=== PATIENT | female | born 1995 | race Caucasian/White ===

== ENCOUNTER 2022-05-25 19:48 | Inpatient (IN) | payer OTHER, SELFPAY ==
--- OUTSIDE RECORDS SUMMARY | 2022-05-25 19:53 | XMS_ITS | Continuity of Care Document ---
:1995 Author Organization [facility] Address [address] [place] [address]- Care Team Providers Name Role Phone Not on Staff, PCP Primary Care Physician Unavailable Encounter [facility] Date(s): 11/04/21 - 11/05/[address] [address]- Discharge Disposition: Transferred to short-term general hospit Attending Physician: Shannon Mills MD Admitting Physician: Shannon Mills MD Referring Physician: Not on Staff, Referring MD Allergies, Adverse Reactions, Alerts Substance Reaction Severity Status shellfish Active Thorazine Active Depakote Risperidone adverse reaction Act anival Risperidone Risperidone Risperidone Risperidone Risperidone Risperidone Tomatoes Active Lactose Active RisperDAL Active Medications Acetaminophen Tablet 650 mg, Tablet, By Mouth, Once, STAT, 11/05/21 1:48:00 EDT, Stop date 11/05/21 1:48:00 EDT Start Date: 11/05/21 Stop Date: 11/05/21 Status: CompletedAtivan 0.5 mg oral tablet 1 tablet = 0.5 mg, By Mouth, Daily, in AM, 0 Refills, Maintenance, 08/16/21 2:08:00 EST, Tablet, Partial fill upon patient request if the prescription is for a schedule II opioid drug. Start Date: 08/16/21 Status: OrderedAtivan 1 mg oral tablet 1 tablet = 1 mg, By Mouth, Daily at bedtime, 0 Refills, Maintenance, 11/05/21 20:11:00 EDT, Tablet, Partial fill upon patient request if the prescription is for a schedule II opioid drug. Start Date: 11/05/21 Status: Orderedbaclofen 5 mg oral tablet 1 tablet = 5 mg, By Mouth, 3 times a day, PRN Spasm, # 90 tablet, 0 Refills, Maintenance, 08/16/21 2:00:00 EST, Tablet, Partial fill upon patient request if the prescription is for a schedule II opioiddrug. Start Date: 08/16/21 Status: OrderedBenadryl 25 mg oral capsule See Instructions, PRN for insomnia, 2 capsule By Mouth as needed, 0 Refills, Maintenance, 08/16/21 2:04:00 EST, Capsule, Partial fill upon patient request if the prescription is for a schedule II opioid drug. Start Date: 08/16/21 Status: OrderedBenadryl 25 mg oral capsule 2 capsule = 50 mg, By Mouth, Daily in AM, 0 Refills, Maintenance, 11/05/21 20:11:00 EDT, Partial fill upon patient request if the prescription is for a schedule II opioid drug. Start Date: 11/05/21 Status: Orderedbenztropine 0.5 mg oral tablet 0.5 mg, 1, tablet, By Mouth, Daily, IN AM, Refills 0, Maintenance, 08/16/21 2:20:00 EST, Partial fill upon patient request if the prescription is for a schedule II opioid drug. Start Date: 08/16/21 Status: Orderedbenztropine 1 mg oral tablet 1 mg, 1, tablet, By Mouth, Daily, at bedtime, # 30 tablet, Refills 0, Maintenance, 08/16/21 2:18:00 EST, Partial fill upon patient request if the prescription is for a schedule II opioid drug. Start Date: 08/16/21 Status: OrderedColace sodium 100 mg oral capsule 100 mg, 1, capsule, By Mouth, 2 times a day, PRN, # 20 capsule, Refills 0, Maintenance, for constipation, 11/05/21 20:17:00 EDT, Partial fill upon patient request if the prescription is for a schedule II opioid drug. Start Date: 11/05/21 Status: Orderedferrous fumarate 325 mg oral tablet 1 tablet = 325 mg, By Mouth, Daily in AM, # 30 tablet, 0 Refills, Maintenance, 11/05/21 20:12:00 EDT, Tablet, Partial fill upon patient request if the prescription is for a schedule II opioid drug. Start Date: 11/05/21 Status: Orderedhaloperidol 10 mg oral tablet 10 mg, 1, tablet, By Mouth, 2 times a day, Pt. takes with the 5mg pill for 15 total, # 60 tablet, Refills 0, Maintenance, 08/16/21 2:24:00 EST, Partial fill upon patient request if the prescription is for a schedule II opioid drug. Start Date: 08/16/21 Status: Orderedhaloperidol 5 mg oral tablet 15 mg, 3, tablet, By Mouth, 2 times a day, # 60 tablet, Refills 0, Maintenance, 08/16/21 1:57:00 EST, Partial fill upon patient request if the prescription is for a schedule II opioid drug. Start Date: 08/16/21 Status: Orderedmagnesium oxide 500 mg oral tablet 1 tablet = 500 mg, By Mouth, Daily, # 14 tablet, 0 Refills, Maintenance, 11/05/21 20:16:00 EDT, Tablet, Partial fill upon patient request if the prescription is for a schedule II opioid drug. Start Date: 11/05/21 Stop Date: 12/05/21 Status: OrderedmetFORMIN 500 mg oral tablet 1 tablet = 500 mg, By Mouth, 2 times a day, # 60 tablet, 0 Refills, Maintenance, 11/05/21 20:16:00 EDT, Tablet, Partial fill upon patient request if the prescription is for a schedule II opioid drug. Start Date: 11/05/21 Status: OrderedMiraLax oral powder for reconstitution = 17 Gm, By Mouth, Daily, PRN Constipation, dissolve in water before taking, # 255 Gm, 0 Refills, Maintenance, 11/05/21 20:20:00 EDT, REC Powder, Partial fill upon patient request if the prescription is for a schedule II opioid drug. Start Date: 11/05/21 Status: OrderedMotrin IB 200 mg oral tablet 2 tablet = 400 mg, By Mouth, Every 6 hours, PRN for pain, # 120 tablet, 0 Refills, Maintenance, 08/16/21 2:06:00 EST, Tablet, Partial fill upon patient request if the prescription is for a schedule II opioid drug. Start Date: 08/16/21 Status: Orderedolanzapine 15 mg oral tablet 1 tablet = 15 mg, By Mouth, 2 times a day, # 30 tablet, 0 Refills, Maintenance, 08/16/21 1:58:00 EST, Tablet, Partial fill upon patient request if the prescription is for a schedule II opioid drug. Start Date: 08/16/21 Status: OrderedOmeprazole = 20 mg, By Mouth, 2 times a day, 0 Refills, Maintenance, 11/05/21 20:16:00 EDT, Partial fill upon patient request if the prescription is for a schedule II opioid drug. Start Date: 11/05/21 Status: Orderedpropranolol 20 mg oral tablet 20 mg, 1, tablet, By Mouth, 2 times a day, # 180 tablet, Refills 0, Maintenance, 11/05/21 20:15:00 EDT, Partial fill upon patient request if the prescription is for a schedule II opioid drug. Start Date: 11/05/21 Status: Orderedsenna 17.2 mg oral tablet 1 tablet = 17.2 mg, By Mouth, Daily, PRN for constipation, # 12 tablet, 0 Refills, Maintenance, 11/05/21 20:17:00 EDT, Tablet, Partial fill upon patient request if the prescription is for a schedule IIopioid drug. Start Date: 11/05/21 Status: OrderedSumatriptan = 100 mg, By Mouth, Daily, PRN Headache, 0 Refills, Maintenance, 11/05/21 20:19:00 EDT, Partial fillupon patient request if the prescription is for a schedule II opioid drug. Start Date: 11/05/21 Status: OrderedtraZODone 100 mg oral tablet 100 mg, 1, tablet, By Mouth, Daily at bedtime, PRN, Refills 0, Maintenance, Insomnia, 11/05/21 20:20:00 EDT, Partial fill upon patient request if the prescription is for a schedule II opioid drug. Start Date: 11/05/21 Status: OrderedTums Ultra 1000 mg oral tablet, chewable 1 tablet = 1,000 mg, Chew, Daily, PRN as needed for dyspepsia, # 12 tablet, 0 Refills, Maintenance, 11/05/21 20:21:00 EDT, Chew Tablet, Partial fill upon patient request if the prescription is for a schedule II opioid drug. Start Date: 11/05/21 Status: OrderedVitamin C 250 mg oral tablet 1 tablet = 250 mg, By Mouth, 2 times a day, # 30 tablet, 0 Refills, Maintenance, 11/05/21 20:17:00 EDT, Tablet, Partial fill upon patient request if the prescription is for a schedule II opioid drug. Start Date: 3/17/22 Status: OrderedZofran 4 mg oral tablet 1 tablet = 4 mg, By Mouth, Every 8 hours, PRN Vomiting, # 12 tablet, 0 Refills, Maintenance, 08/16/21 2:07:00 EST, Tablet, Partial fill upon patient request if the prescription is for a schedule II opioid drug. Start Date: 08/16/21 Status: Ordered Problem List Condition Effective Dates Status Health Status Informant Severe obesity(Confirmed) Active Results Radiology Reports Exam Date Time Procedure Performing Provider Status 11/04/21 11:37 PM Nose to Rectum Foreign Body 1 Lisa Roberson; Shakir (Verified) View Child Notes:(Nose to Rectum Foreign Body 1 View Child) Reason For Exam: Foreign Body RESULT: Nose to Rectum Foreign Body 1 View Child Nose to Rectum Foreign Body 1 View INDICATION: swallowed a screw COMPARISON: 08/16/2021, 2021 FINDINGS: Metallic screw measuring about 3.2 cm in length, projecting over the left upper abdomen. Clear lungs. Normal pulmonary vascularity. No pleural effusion or pneumothorax. Heart is normal in size. Normal upper mid central and hilar contour. No acute osseous abnormality. IMPRESSION: 3.2 cm metallic screw projecting over the left upper abdomen, which may be within the stomach, proximal jejunum, or distal transverse colon. Findings were relayed by Dr. Perez to Silas Willis DO via [employer] on 11/04/2021 11:45 PM . I have personally reviewed the images and I agree with this report. WSN: [id number] Ordering Physician: Silas Willis Dictated By: Zhao Perez DO Dictated Date/Time: 11/04/21 11:49 p Reviewed By: Epifanio Maher MD Signed By: Epifanio Maher MD Signed Date/Time: 11/04/21 11:54 pm Transcribed By: LAINA Transcribed Date/Time: 11/04/21 11:46 pm Vital Signs Most recent to oldest 1 2 3 [Reference Range]: Height 151 cm 151 cm (11/05/21 6:52 AM) (11/04/21 11:25 PM) Weight 104.5 kg 104.5 kg (11/05/21 6:52 AM) (11/04/21 11:25 PM) Oxygen Saturation [94-100 %] 97 % 96 % 99 % (11/05/21 9:26 AM) (11/05/21 6:52 AM) (11/04/21 11: 25 PM) Pulse Rate [55-90 bpm] 93 bpm 95 bpm 100 bpm *H* *H* *H* (11/05/21 9:26 AM) (11/05/21 6:52 AM) (11/04/21 11: 25 PM) Body Mass Index [18.5-24.99] 45.83 *>HHI* (11/05/21 6:52 AM) Blood Pressure [90-138/55-84 119/70 mm Hg 114/80 mm Hg 119 /83 mm Hg mm Hg] (11/05/21 9:26 AM) (11/05/21 6:52 AM) (11/04/21 11: 25 PM) Respiratory Rate [16-30 22 br/min 24 br/min 18 br/mi n br/min] (11/05/21 9:26 AM) (11/05/21 6:52 AM) (11/05/21 2:5 1 AM) Temperature [96.8-100.4 98.3 DegF 98.1 DegF DegF] (11/05/21 9:26 AM) (11/04/21 11:25 PM) Mode of Delivery (Oxygen) Room air Room air Room a ir (11/05/21 9:26 AM) (11/05/21 6:52 AM) (11/04/21 11: 25 PM) Blood pressure sites Arm, right Arm, right (11/05/21 9:26 AM) (11/05/21 6:52 AM) Temperature Route Oral Oral (11/05/21:26 AM) (11/04/21 11:25 PM) Dry Weight 104.5 kg 104.5 kg (11/05/21 6:52 AM) (11/04/21 11:25 PM) Weight Obtained Via Standing scale (11/04/21 11:25 PM) Dry Weight Obtained Via Standing scale (11/04/21 11:25 PM) Social History Social History Type Response Smoking Status Never (less than 100 in life time) entered on: 10/20/21 Sex
--- OUTSIDE RECORDS SUMMARY | 2022-05-25 19:53 | XMS_ITS | Continuity of Care Document ---
:1995 Author Organization [facility] Address [address] [place] [address]- Care Team Providers Name Role Phone Geeta Blanca MD Primary Care Physician Encounter [facility] Date(s): 03/02/22 - 03/03/[address] [address]- Discharge Disposition: Transferred to short-term general hospit Attending Physician: Yajaira Moyer MD Admitting Physician: José Gardner DO Referring Physician: George Roman MD Allergies, Adverse Reactions, Alerts Substance Reaction Severity Status shellfish Active Thorazine Active Depakote Risperidone adverse reaction Act anival Risperidone Risperidone Risperidone Risperidone Risperidone Risperidone Latex Active Tomatoes Active Lactose Active RisperDAL Active Immunizations Given and Recorded Vaccine Date Status Refusal Reason SARS-CoV-2 (COVID-19) mRNA-1273 vaccine 01/15/21 Recorded SARS-CoV-2 (COVID-19) mRNA-1273 vaccine 12/18/20 Recorded influenza virus vaccine, inactivated 09/08/20 Recorded Medications Ativan 1 mg oral tablet 1 tablet = 1 mg, By Mouth, 2 times a day, 0 Refills, Maintenance, 11/05/21 20:11:00 EDT, Tablet, Partial fill upon patient request if the prescription is for a schedule II opioid drug. Start Date: 11/05/21 Status: Orderedbenztropine 1 mg oral tablet 1 mg, 1, tablet, By Mouth, 2 times a day, at bedtime, Refills 0, Maintenance, 08/16/21 2:18:00 EST Start Date: 08/16/21 Status: OrdereddiphenhydrAMINE 50 mg oral tablet = 50 mg, By Mouth, Daily in AM, 0 Refills, Maintenance, 02/10/22 13:16:00 EDT, Tablet, Partial fill upon patient request if the prescription is for a schedule II opioid drug. Start Date: 02/10/22 Status: Orderedferrous fumarate 325 mg oral tablet 1 tablet = 325 mg, By Mouth, Every other day, 0 Refills, Maintenance, 11/05/21 20:12:00 EDT, Tablet Start Date: 11/05/21 Status: OrderedGeriatrics LISPRO Sliding Scale See Instructions, Maintenance, SC TID with meal: 150-200 2 U 201-250 4 U 251-300 6 U 301-350 8 U 351-400 10 U 401+ 12 U, 03/01/22 14:26:00 EDT Start Date: 03/01/22 Status: Orderedhaloperidol 5 mg oral tablet 15 mg, 3, tablet, By Mouth, 2 times a day, Refills 0, Maintenance, 08/16/21 1:57:00 EST Start Date: 08/16/21 Status: OrderedmetFORMIN 500 mg oral tablet 1 tablet = 500 mg, By Mouth, 2 times a day with meals, # 60 tablet, 0 Refills, Maintenance, 11/06/2219:16:00 EDT, Tablet, Partial fill upon patient request [...] II opioid drug. Start Date: 11/05/21 Status: OrderedMorPHINE Inj 2 mg, Injection, IV Push Slowly, Every 4 hours, PRN for Pain , Severe, Routine, 03/03/22 1:04:00 EDT Start Date: 03/03/22 Stop Date: 03/10/22 Status: Orderedolanzapine 5 mg oral tablet 5 mg, 1, tablet, By Mouth, 2 times a day, PRN, Refills 0, Maintenance, Agitation, 02/15/22 12:58:00 EDT, Partial fill upon patient request if the prescription is for a schedule II opioid drug. Start Date: 02/15/22 Status: Orderedpropranolol 20 mg oral tablet 20 mg, Tablet, By Mouth, 03/03/22 21:00:00 EDT Start Date: 03/03/22 Stop Date: 03/03/22 Status: Completedpropranolol 20 mg oral tablet 20 mg, 1, tablet, By Mouth, 2 times a day, # 180 tablet, Refills 0, Maintenance, 11/05/21 20:15:00 EDT, Partial fill upon patient request if the prescription is for a schedule II opioid drug. Start Date: 11/05/21 Status: OrderedSumatriptan = 100 mg, By Mouth, Daily, PRN Headache, 0 Refills, Maintenance, 11/05/21 20:19:00 EDT, Partial fillupon patient request if the prescription is for a schedule II opioid drug. Start Date: 11/05/21 Status: OrderedtraZODone 100 mg oral tablet 100 mg, 1, tablet, By Mouth, Daily at bedtime, PRN, Refills 0, Maintenance, Insomnia, 11/05/21 20:20:00 EDT Start Date: 11/05/21 Status: OrderedTylenol 325 mg oral tablet 650 mg, 2, tablet, By Mouth, Every 6 hours, PRN, Refills 0, Maintenance, Pain , Mild, 03/01/22 14:32:00 EDT, Partial fill upon patient request if the prescription is for a schedule II opioid drug. Start Date: 03/01/22 Status: OrderedZyPREXA 10 mg oral tablet 10 mg, 1, tablet, By Mouth, 2 times a day, Refills 0, Maintenance, 02/15/22 12:52:00 EDT, Partial fill upon patient request if the prescription is for a schedule II opioid drug. Start Date: 02/15/22 Status: Ordered Problem List Condition Effective Dates Status Health Status Informant Borderline personality Active disorder(Confirmed) Dyslipidemia(Confirmed) Active Intellectual disability(Confirmed) Active Iron deficiency anemia(Confirmed) Active Major depressive disorder(Confirmed) Active Migraine(Confirmed) Active Class 2 obesity with body mass index Active (BMI) of 38.0 to 38.9 in adult(Confirmed) PTSD (post-traumatic stress Active disorder)(Confirmed) Severe obesity(Confirmed) Active Type 2 diabetes mellitus(Confirmed) Active Results Radiology Reports Exam Date Time Procedure Performing Provider Status 03/03/22 8:01 AM Abdomen AP Galen , Mara; Auth (Verified) Notes:(Abdomen AP) Reason For Exam: battery ingestion, follow up x ray;Foreign BodyRESULT: XR Abdomen AP XR Abdomen AP 1 view INDICATION/CLINICAL QUESTION: Reason: Foreign Body; battery ingestion, follow up x ray; Clinical Question(s): Foreign Body COMPARISON: Prior radiographs, most recently 03/02/2022. CT, 02/23/2022. FINDINGS: Radiopaque battery is again seen in the mid abdomen, located just to the left of midline at L2-3. Exact location is unclear, possibly in the distal duodenum. A curvilinear metallic density, possibly a staple, is also seen just to the right of L2. This may bein the mid small bowel. There is no small bowel dilatation. Stool throughout the colon most prominently in the ascending colon. No evidence of pneumoperitoneum. No organomegaly, masses or calcifications. No acute bone findings. IMPRESSION: Radiopaque battery again seen in the mid abdomen, possibly in the distal duodenum. Curvilinear metallic density, possibly a staple, may be in mid small bowel loop. WSN: [id number] Ordering Physician: José Gardner Dictated By: Mary Mckeon MD Dictated Date/Time: 03/03/22 9:05 am Reviewed By: aMry Mckeon MD Signed By: Mary Mckeon MD Signed Date/Time: 03/03/22 9:05 am Transcribed By: LAINA Transcribed Date/Time: 03/03/22 8:59 am Vital Signs Most recent to oldest 1 2 3 [Reference Range]: Height 165 cm 165 cm 165 cm (03/03/22 10:49 AM) (03/03/22 4:09 AM) (03/02/22 10 :54 PM) Weight 104.6 kg 104.6 kg (03/03/22 10:49 AM) (03/02/22 10:54 PM) Oxygen Saturation [94-100 98 % 97 % 93 % %] (03/03/22 7:00 PM) (03/03/22 12:10 PM) *L* (03/03/22 11:58 A M) Pulse Rate [55-90 bpm] 96 bpm 97 bpm 97 bpm *H* *H* *H* (03/03/22 7:56 PM) (03/03/22 10:49 AM) (03/03/22 4: 09 AM) Body Mass Index 38.42 38.42 [18.5-24.99] *>HHI* *>HHI* (03/03/22 10:49 AM) (03/02/22 10:54 PM) Blood Pressure 119/67 mm Hg 119/77 mm Hg 113/65 mm Hg [90-138/55-84 mm Hg] (03/03/22 7:56 PM) (03/03/22 12:10 PM) ( 11:58 AM) Respiratory Rate [16-30 18 br/min 18 br/min 18 br/mi n br/min] (03/03/22 8:06 PM) (03/03/22 7:00 PM) (03/03/22 3:2 4 PM) Temperature [96.8-100.4 98.8 DegF 97.7 DegF 98.4 Deg F DegF] (03/03/22 7:00 PM) (03/03/22 10:49 AM) (03/03/22 4: 09 AM) Mode of Delivery (Oxygen) Room air Room air Room a ir (03/03/22 12:10 PM) (03/03/22 11:58 AM) (03/03/22 1 1:47 AM) Blood pressure sites Leg, right Leg, right Arm, right (03/03/22 11:58 AM) (03/03/22 11:47 AM) (03/03/22 1 0:49 AM) Temperature Route Temporal Oral Oral (03/03/22 10:49 AM) (03/03/22 4:09 AM) (03/02/22 10 :54 PM) Dry Weight 104.6 kg 104.6 kg (03/03/22 10:49 AM) (03/02/22 10:54 PM) Weight Obtained Via Patient/family stated Standing scale (03/03/22 10:49 AM) (03/02/22 10:54 PM) Dry Weight Obtained Via Patient/family stated (03/03/22 10:49 AM) Social History Social History Type Response Smoking Status Never (less than 100 in life time) entered on: 10/20/21 Sex
--- OUTSIDE RECORDS SUMMARY | 2022-05-25 19:53 | XMS_ITS | Continuity of Care Document ---
:1995 Author Organization [facility] Address [address] [place] [address]- Care Team Providers Name Role Phone Geeta Blanca MD Primary Care Physician Encounter [facility] Date(s): 03/22/22 - 03/22/[address] [address]- Discharge Disposition: A-D/C Home Attending Physician: Abhi MACHUCA, Kar Zhou Admitting Physician: Kar Moe MD Referring Physician: Not on Staff, Referring MD Allergies, Adverse Reactions, Alerts Substance Reaction Severity Status shellfish Active Thorazine Active Depakote Risperidone adverse reaction Act anival Risperidone Risperidone Risperidone Risperidone Risperidone Risperidone Latex Active Tomatoes Active RisperDAL Active Immunizations Given and Recorded Vaccine Date Status Refusal Reason SARS-CoV-2 (COVID-19) mRNA-1273 vaccine 01/15/21 Recorded SARS-CoV-2 (COVID-19) mRNA-1273 vaccine 12/18/20 Recorded influenza virus vaccine, inactivated 09/08/20 Recorded Medications Ativan 1 mg oral tablet See Instructions, 1 tablet By Mouth 2 times a day at 9 AM and 9 PM. Also 1 tablet two times a day asneeded for anxiety/agitation, # 60 tablet, 1 Refills, Acute 04/10/22 12:26:00 EDT, 03/17/22 12:22:00EDT, Tablet, [facility], Partial fill upon p... Start Date: 03/17/22 Stop Date: 04/10/22 Status: Orderedbenztropine 1 mg oral tablet 1 mg, 1, tablet, By Mouth, 2 times a day, # 60 tablet, Refills 0, Tot. Refills 0, Maintenance, 03/17/22 12:20:00 EDT, Route to Pharmacy Electronically, [facility], Partial fill upon patient request if the prescription is for a schedule II opioid... Start Date: 03/17/22 Stop Date: 04/16/22 Status: OrdereddiphenhydrAMINE 50 mg oral tablet = 50 mg, By Mouth, Daily, PRN Itch, for 21 days, # 21 tablet, 0 Refills, Acute 04/07/22 12:20:00 EDT, 03/17/22 12:20:00 EDT, Tablet, [facility], Partial fill upon patient request if the prescription is for a schedule II opioid drug., 160, cm, ... Start Date: 03/17/22 Stop Date: 04/07/22 Status: Ordereddocusate-senna 50 mg-8.6 mg oral capsule 2 capsule, By Mouth, Daily, PRN Constipation, for 14 days, # 28 capsule, 0 Refills, Acute 03/31/22 12:20:00 EDT, 03/17/22 12:20:00 EDT, Capsule, [facility], Partial fill upon patient request if the prescription is for a schedule II opioid drug.,... Start Date: 03/17/22 Stop Date: 03/31/22 Status: Orderedferrous fumarate 325 mg oral tablet 1 tablet = 325 mg, By Mouth, Every other day, # 15 tablet, 0 Refills, Maintenance, 03/17/22 12:20:00EDT, Tablet, [facility], Partial fill upon patient request if the prescription is for a schedule II opioid drug., 160, cm, 03/15/22 16:19:00 EDT,... Start Date: 03/17/22 Status: Orderedhaloperidol 10 mg oral tablet 15 mg, 1.5, tablet, By Mouth, 2 times a day, # 90 tablet, Refills 0, Tot. Refills 0, Maintenance, 03/17/22 12:23:00 EDT, Route to Pharmacy Electronically, [facility], Partial fill upon patient request if the prescription is for a schedule II opio... Start Date: 03/17/22 Stop Date: 04/16/22 Status: OrderedmetFORMIN 500 mg oral tablet 2 each = 1,000 mg, By Mouth, 2 times a day with meals, # 56 tablet, 1 Refills, Maintenance, 03/17/2212:21:00 EDT, Tablet, [facility], Partial fill upon patient request if the prescription is for a schedule II opioid drug., 160, cm, 03/15/22 16:1... Start Date: 03/17/22 Stop Date: 04/14/22 Status: OrderedNeurontin 100 mg oral capsule 100 mg, 1, capsule, By Mouth, 3 times a day, # 90 capsule, Refills 0, Tot. Refills 0, Maintenance, 03/17/22 12:22:00 EDT, Route to Pharmacy Electronically, [facility], Partial fill upon patient request if the prescription is for a schedule II opi... Start Date: 03/17/22 Stop Date: 04/16/22 Status: Orderedolanzapine 5 mg oral tablet 5 mg, 1, tablet, By Mouth, 2 times a day, PRN, Refills 0, Maintenance, Agitation, 03/17/22 12:21:00 EDT, Partial fill upon patient request if the prescription is for a schedule II opioid drug. Start Date: 03/17/22 Status: Orderedondansetron 4 mg oral tablet, disintegrating = 4 mg, By Mouth, 3 times a day, PRN Nausea & Vomiting, for 7 days, # 21 tablet, 0 Refills, Acute 03/24/22 12:27:00 EDT, 03/17/22 12:27:00 EDT, Tablet, [facility], Partial fill upon patient request if the prescription is for a schedule II opioid... Start Date: 03/17/22 Stop Date: 03/24/22 Status: OrderedoxyCODONE 5 mg oral tablet 5 mg, 1, tablet, By Mouth, 3 times a day, PRN, for 7 days, # 21 tablet, Refills 0, Tot. Refills 0, Acute 03/24/22 12:27:00 EDT, Pain , Moderate, 03/17/22 12:27:00 EDT, Route to Pharmacy Electronically,[facility], Partial fill upon patient reques... Start Date: 03/17/22 Stop Date: 03/24/22 Status: Orderedpolyethylene glycol 3350 oral powder for reconstitution = 17 Gm, By Mouth, Daily, for 14 days, dissolve in water before taking, # 238 Gm, 0 Refills, Acute 03/31/22 12:22:00 EDT, 03/17/22 12:22:00 EDT, REC Powder, [facility], Partial fill upon patient request if the prescription is for a schedule II op... Start Date: 03/17/22 Stop Date: 03/31/22 Status: Orderedpropranolol 20 mg oral tablet 20 mg, 1, tablet, By Mouth, 2 times a day, # 60 tablet, Refills 0, Tot. Refills 0, Maintenance, 03/17/22 12:22:00 EDT, Route to Pharmacy Electronically, [facility], Partial fill upon patient request if the prescription is for a schedule II opioid... Start Date: 03/17/22 Stop Date: 04/16/22 Status: OrderedSUMAtriptan 25 mg oral tablet 4 tablet = 100 mg, By Mouth, Daily, PRN Headache, 0 Refills, Maintenance, 03/17/22 12:25:00 EDT, Tablet, Partial fill upon patient request if the prescription is for a schedule II opioid drug. Start Date: 03/17/22 Status: OrderedtraZODone 100 mg oral tablet 100 mg, 1, tablet, By Mouth, Daily at bedtime, # 30 tablet, Refills 0, Tot. Refills 0, Maintenance, 03/17/22 12:25:00 EDT, Route to Pharmacy Electronically, [facility], Partial fill upon patient request if the prescription is for a schedule II op... Start Date: 03/17/22 Stop Date: 04/16/22 Status: OrderedZyPREXA 10 mg oral tablet 10 mg, 1, tablet, By Mouth, 2 times a day, # 60 tablet, Refills 0, Tot. Refills 0, Maintenance, 03/17/22 12:21:00 EDT, Route to Pharmacy Electronically, [facility], Partial fill upon patient request if the prescription is for a schedule II opioid... Start Date: 03/17/22 Stop Date: 04/16/22 Status: Ordered Problem List Condition Effective Dates [...] Exam Date Time Procedure Performing Provider Status 03/22/22 9:36 PM Neck Soft Tissue Jennifer Cabrera; Auth (Veri fied) Notes:(Neck Soft Tissue) Reason For Exam: Foreign BodyRESULT: Neck Soft Tissue Neck Soft Tissue HX OF PRESENT ILLNESS: group resident Swallowed pieces of plastic spork at about 5 pm. States frustrated. multiple similar presentations; Reason: Foreign Body; Clinical Question(s): Foreign Body Location COMPARISON: None FINDINGS: Patent nasopharynx. No abnormal adenoidal enlargement. Normal retropharyngeal and retrotracheal soft tissues. Normal airway. Normal bones. IMPRESSION: No radiopaque foreign body. WSN: [id number] Ordering Physician: Yajaira Padilla Dictated By: Jordan Pelayo MD Dictated Date/Time: 03/22/22 9:40 pm Reviewed By: Jordan Pelayo MD Signed By: Jordan Pelayo MD Signed Date/Time: 03/22/22 9:40 pm Transcribed By: LAINA Transcribed Date/Time: 03/22/22 9:40 pm Exam Date Time Procedure Performing Provider Status 03/22/22 9:36 PM Chest 2 Views Frontal and Lat Jennifer Cabrera; Auth (Verified) Notes:(Chest 2 Views Frontal and Lat) Reason For Exam: Other:RESULT: Chest 2 Views Frontal and Lat Chest 2 Views Frontal and Lat HX OF PRESENT ILLNESS: group resident Swallowed pieces of plastic spork at about 5 pm. States frustrated. multiple similar presentations; Reason: Other:; Clinical Question(s): Other:; foreign body /Other: COMPARISON: 02/22/2022 FINDINGS: LINES AND TUBES: None. LUNGS AND PLEURA: Low lung volumes with mild basilar atelectasis. Lungs are otherwise clear with no definite consolidation. No pleural effusion. No pneumothorax. HEART, MEDIASTINUM AND TAMAR: Heart is normal in size. Normal mediastinal and hilar contour. BONES AND SOFT TISSUES: No acute abnormality. IMPRESSION: No evidence of acute abnormality. No radiopaque foreign body. WSN: [id number] Ordering Physician: Yajaira Padilla Dictated By: Jordan Pelayo MD Dictated Date/Time: 03/22/22 9:39 pm Reviewed By: Jordan Pelayo MD Signed By: Jordan Pelayo MD Signed Date/Time: 03/22/22 9:39 pm Transcribed By: LAINA Transcribed Date/Time: 03/22/22 9:38 pm Exam Date Time Procedure Performing Provider Status 03/22/22 7:47 PM Abdomen Comp Inc Decub and/or Jennifer Cabrera L; Auth (Verified) Erect Notes:(Abdomen Comp Inc Decub and/or Erect) Reason For Exam: PainRESULT: Abdomen Comp Inc Decub and/or Erect Abdomen Comp Inc Decub and/or Erect INDICATION/CLINICAL QUESTION: Hx of Present Illness: group hm resident Swallowed pieces of plastic spork at about 5 pm. States frustrated. multiple similar presentations; Reason: Pain; Clinical Question(s): Obstruction COMPARISON: None TECHNIQUE: Supine AP view submitted. No upright or decubitus view. FINDINGS: Reported ingested plastic foreign body cannot be identified on xray. No free air. Normal bowel gas pattern. No evidence of obstruction. No organomegaly, masses or calcifications. No acute bone findings. IMPRESSION: Reported ingested plastic foreign body cannot be identified on xray. No free air. Normal bowel gas pattern. WSN: [id number] Ordering Physician: Yajaira Padilla Dictated By: Jordan Hager MD Dictated Date/Time: 03/22/22 7:54 pm Reviewed By: Jordan Hager MD Signed By: Jordan Hager MD Signed Date/Time: 03/22/22 7:54 pm Transcribed By: LAINA Transcribed Date/Time: 03/22/22 7:48 pm Vital Signs Most recent to oldest [Reference 1 2 3 Range]: Height 160 cm 160 cm 160 cm (03/22/22 10:03 PM) (03/22/22 7:57 PM) (03/22/22 5:43 PM) Weight 104 kg 104 kg 104 kg (03/22/22 10:03 PM) (03/22/22 7:57 PM) (03/22/22 5:43 PM) Oxygen Saturation [94-100 %] 99 % 100 % 100 % (03/22/22 10:03 PM) (03/22/22 7:57 PM) (03/22/22 5:40 PM) Pulse Rate [55-90 bpm] 108 bpm 101 bpm 125 bpm *H* *H* *H* (03/22/22 10:03 PM) (03/22/22 7:57 PM) (03/22/22 5:40 PM) Body Mass Index [18.5-24.99] 40.63 40.63 40. 63 *>HHI* *>HHI* *>HHI* (03/22/22 10:03 PM) (03/22/22 7:57 PM) (03/22/22 5:40 PM) Blood Pressure [90-138/55-84 mm 129/98 mm Hg 118/74 mm Hg 153/90 mm Hg Hg] (03/22/22 10:03 PM) (03/22/22 7:57 PM) *H* (03/22/22 5:40 PM) Respiratory Rate [16-30 br/min] 18 br/min 17 br/min 18 br/min (03/22/22 10:03 PM) (03/22/22 7:57 PM) (03/22/22 5:40 PM) Temperature [96.8-100.4 DegF] 98.7 DegF (03/22/22 7:57 PM) Liters per Minute 0 L/min 0 L/min (03/22/22 10:03 PM) (03/22/22 7:57 PM) Mode of Delivery (Oxygen) Room air Room air Room a ir (03/22/22 10:03 PM) (03/22/22 7:57 PM) (03/22/22 5:40 PM) Blood pressure sites Arm, left Arm, left (03/22/22 10:03 PM) (03/22/22 7:57 PM) Temperature Route Oral (03/22/22 7:57 PM) Dry Weight 104 kg 104 kg 104 kg (03/22/22 10:03 PM) (03/22/22 7:57 PM) (03/22/22 5:43 PM) Social History Social History Type Response Smoking Status Never (less than 100 in life time) entered on: 10/20/21 Sex
--- OUTSIDE RECORDS SUMMARY | 2022-05-25 19:53 | XMS_ITS | Continuity of Care Document ---
:1995 Author Organization [facility] Address [address] [place] [address]- Care Team Providers Name Role Phone Geeta Blanca MD Primary Care Physician Encounter [facility] Date(s): 02/21/22 - 02/22/[address] [address]- Discharge Disposition: A-D/C Home Attending Physician: Riaz Genao MD Admitting Physician: Riaz Genao MD Referring Physician: Not on Staff, Referring [...] virus vaccine, inactivated 09/08/20 Recorded Medications Ativan 0.5 mg oral tablet 1 tablet = [...] II opioid drug. Start Date: 08/16/21 Status: OrdereddiphenhydrAMINE 50 mg [...] opioid drug. Start Date: 11/05/21 Status: Orderedhaloperidol 5 mg oral tablet 15 [...] II opioid drug. Start Date: 11/05/21 Status: Orderedolanzapine 5 mg oral tablet 5 [...] tablet = 17.2 mg, By Mouth, Daily, # 12 tablet, 0 Refills, Maintenance, 11/05/21 [...] II opioid drug. Start Date: 11/05/21 Status: OrderedZofran 4 mg oral tablet 1 tablet = 4 mg, By Mouth, Every 8 hours, PRN Vomiting, # 12 tablet, 0 Refills, Maintenance, 08/16/21 2:07:00 EST, Tablet, Partial fill upon patient request if the prescription is for a schedule II opioid drug. Start Date: 08/16/21 Status: OrderedZyPREXA 10 mg oral tablet 10 mg, 1, tablet, By Mouth, 2 times a day, Refills 0, Maintenance, 02/15/22 12:52:00 EDT, Partial fill upon patient request if the prescription is for a schedule II opioid drug. Start Date: 02/15/22 Status: Ordered Problem List Condition Effective Dates Status Health Status Informant Borderline personality Active disorder(Confirmed) Intellectual disability(Confirmed) Active Major depressive disorder(Confirmed) Active Migraine(Confirmed) Active PTSD (post-traumatic stress Active disorder)(Confirmed) Severe obesity(Confirmed) Active Type 2 diabetes mellitus(Confirmed) Active Results Radiology Reports Exam Date Time Procedure Performing Provider Status 02/22/22 12:11 AM Abdomen AP Tara Genao; Auth (Verif ied) Notes:(Abdomen AP) Reason For Exam: recent foreign body;PainRESULT: XR Abdomen AP XR Abdomen AP 1 view INDICATION/CLINICAL QUESTION: Hx of Present Illness: reports abd pain starting today, multiple episodes of vomiting, nausea, chest pain,; Reason: Pain; recent foreign body; Clinical Question(s): Foreign Body; Air under diaphragm; Special Instructions: Upright COMPARISON: None TECHNIQUE: Upright AP view of the abdomen. FINDINGS: Nonspecific nonobstructive bowel gas pattern. No evidence of pneumoperitoneum. No organomegaly, masses or calcifications. No acute bone findings. IMPRESSION: Nonspecific nonobstructive bowel gas pattern. No free air. WSN: [id number] Ordering Physician: Riaz Genao Dictated By: Jordan Hager MD Dictated Date/Time: 02/22/22 9:26 am Reviewed By: Jordan Hager MD Signed By: Jordan Hager MD Signed Date/Time: 02/22/22 9:26 am Transcribed By: LAINA Transcribed Date/Time: 02/22/22 9:26 am Exam Date Time Procedure Performing Provider Status 02/22/22 12:11 AM Chest 2 Views Frontal and Lat Tara Genao; Auth (Verified) Notes:(Chest 2 Views Frontal and Lat) Reason For Exam: chest pain, recent foreign body, edoscopy;Other:RESULT: Chest 2 Views Frontal and Lat Chest 2 Views Frontal and Lat Hx of Present Illness: reports abd pain starting today, multiple episodes of vomiting, nausea, chestpain,; Reason: Other:; chest pain, recent foreign body, edoscopy; Clinical Question(s): Foreign Body; pneumomediastinum COMPARISON: 02/08/2022 FINDINGS: LINES AND TUBES: None. LUNGS AND PLEURA: Lung volumes are low. No focal opacity. Normal pulmonary vascularity. No pleural effusion. No pneumothorax. HEART, MEDIASTINUM AND TAMAR: Heart is normal in size. No pneumomediastinum. BONES AND SOFT TISSUES: No acute abnormality. No radiodense foreign body is visualized within the chest or upper abdomen. No pneumoperitoneum. Metallic foreign bodies seen on the prior study have been removed. IMPRESSION: No acute abnormality. No pneumomediastinum or pneumoperitoneum. No remaining foreign body. WSN: [id number] Ordering Physician: Riaz Genao Dictated By: Jordan Hager MD Dictated Date/Time: 02/22/22 7:21 am Reviewed By: Jordan Hager MD Signed By: Jordan Hager MD Signed Date/Time: 02/22/22 7:21 am Transcribed By: LAINA Transcribed Date/Time: 02/22/22 7:20 am Vital Signs Most recent to oldest [Reference 1 2 3 Range]: Height 1 cm 1 cm (02/22/22 12:25 AM) (02/21/22 8:45 PM) Weight 104 kg 104 kg (02/22/22 12:25 AM) (02/21/22 8:45 PM) Oxygen Saturation [94-100 %] 98 % 96 % 96 % (02/22/22 7:31 AM) (02/22/22 12:25 AM) (02/21/22 8:45 PM) Pulse Rate [55-90 bpm] 104 bpm 98 bpm 115 bpm *H* *H* *H* (02/22/22 7:31 AM) (02/22/22 12:25 AM) (02/21/22 8:45 PM) Blood Pressure [90-138/55-84 mm 115/68 mm Hg 115/67 mm Hg 147/104 mm Hg Hg] (02/22/22 7:31 AM) (02/22/22 12:25 AM) *H* (02/21/22 8:45 PM) Respiratory Rate [16-30 br/min] 16 br/min 31 br/min 18 br/min (02/22/22 7:31 AM) *H* (02/21/22 8:45 PM ) (02/22/22 12:25 AM) Temperature [96.8-100.4 DegF] 97.8 DegF 98.5 DegF 98 .5 DegF (02/22/22 7:31 AM) (02/22/22 12:25 AM) (02/21/22 8:45 PM) Mode of Delivery (Oxygen) Room air Room air Room a ir (02/22/22 7:31 AM) (02/22/22 12:25 AM) (02/21/22 8:45 PM) Blood pressure sites Arm, left Arm, left (02/22/22 7:31 AM) (02/22/22 12:25 AM) Temperature Route Axillary Oral Oral (02/22/22 7:31 AM) (02/22/22 12:25 AM) (02/21/22 8:45 PM) Dry Weight 104 kg 104 kg (02/22/22 12:25 AM) (02/21/22 8:45 PM) Social History Social History Type Response Smoking Status Never (less than 100 in life time) entered on: 10/20/21 Sex
--- OUTSIDE RECORDS SUMMARY | 2022-05-25 19:53 | XMS_ITS | Continuity of Care Document ---
:1995 Author Organization [facility] Address [address] [place] [address]- Care Team Providers Name Role Phone Geeta Blanca MD Primary Care Physician Encounter [facility] Date(s): 05/08/22 - 05/18/[address] [id number] Discharge Disposition: A-D/C Home Attending Physician: Latoya Saab MD Admitting Physician: Jenny MACHUCA, Stephen Cunningham Referring Physician: Not on Staff, Referring MD [...] 2 times a day, 0 Refills, Maintenance, 04/28/22 12:04:00 EDT, Tablet, Partial fill upon patient request if the prescription is for a schedule II opioid drug. Start Date: 04/28/22 Status: Orderedbenztropine 1 mg oral tablet 1 mg, 1, tablet, By Mouth, 2 times a day, # 60 tablet, Refills 0, Tot. Refills 0, Maintenance, 03/17/22 12:20:00 EDT, Route to Pharmacy Electronically, [facility], Partial fill upon patient request if the prescription is for a schedule II opioid... Start Date: 03/17/22 Stop Date: 04/16/22 Status: Orderedferrous fumarate 325 mg oral tablet 1 tablet = 325 mg, By Mouth, Every other day, # 15 tablet, 0 Refills, Maintenance, 03/17/22 12:20:00EDT, Tablet, [facility], Partial fill upon patient request if the prescription is for a schedule II opioid drug., 160, cm, 03/15/22 16:19:00 EDT,... Start Date: 03/17/22 Status: Orderedhaloperidol 10 mg oral tablet 15 mg, 1.5, tablet, By Mouth, 2 times a day, # 90 tablet, Refills 0, Tot. Refills 0, Maintenance, 03/17/22 12:23:00 EDT, Route to Pharmacy Electronically, [facility], Partial fill upon patient request if the prescription is for a schedule II opio... Start Date: 03/17/22 Stop Date: 04/16/22 Status: Orderedmagnesium oxide 400 mg oral tablet 1 tablet = 400 mg, By Mouth, 2 times a day with meals, for 7 days, # 14 tablet, 0 Refills, Acute 05/25/22 9:17:00 EDT, 05/18/22 9:17:00 EDT, Tablet, [facility], Partial fill upon patient request if the prescription is for a schedule II opioid leon... Start Date: 05/18/22 Stop Date: 05/25/22 Status: OrderedMetformin = 1,000 mg, By Mouth, 2 times a day, 0 Refills, Maintenance, 04/21/22 22:21:00 EDT, Partial fill upon patient request if the prescription is for a schedule II opioid drug. Start Date: 04/21/22 Status: OrderedNeurontin 100 mg oral capsule 100 mg, Capsule, By Mouth, 05/18/22 9:00:00 EDT Start Date: 05/18/22 Stop Date: 05/18/22 Status: CompletedNeurontin 100 mg oral capsule 100 mg, 1, capsule, By Mouth, 3 times a day, # 90 capsule, Refills 0, Tot. Refills 0, Maintenance, 05/18/22 9:17:00 EDT, Route to Pharmacy Electronically, [facility], Partial fill upon patient request if the prescription is for a schedule II opio... Start Date: 05/18/22 Status: Orderedondansetron 4 mg oral tablet 1 tablet = 4 mg, By Mouth, Every 8 hours, PRN Nausea & Vomiting, # 10 tablet, 0 Refills, Maintenance, 04/28/22 12:09:00 EDT, Tablet, Partial fill upon patient request if the prescription is for a schedule II opioid drug. Start Date: 04/28/22 Status: Orderedpropranolol 20 mg oral tablet 20 mg, Tablet, By Mouth, 05/18/22 9:00:00 EDT Start Date: 05/18/22 Stop Date: 05/18/22 Status: Completedpropranolol 20 mg oral tablet 20 mg, Tablet, By Mouth, 05/17/22 21:00:00 EDT Start Date: 05/17/22 Stop Date: 05/17/22 Status: Completedpropranolol 20 mg oral tablet 20 mg, 1, tablet, By Mouth, 2 times a day, # 60 tablet, Refills 0, Tot. Refills 0, Maintenance, 03/17/22 12:22:00 EDT, Route to Pharmacy Electronically, [facility], Partial fill upon patient request if [...] 03/17/22 12:25:00 EDT, Route to Pharmacy Electronically, [facility], Partial fill upon patient request if the prescription is for a schedule II op... Start Date: 03/17/22 Stop Date: 04/16/22 Status: OrderedTums 500 mg oral tablet, chewable 1,000 mg, 2, tablet, Chew, 3 times a day, PRN, # 10 tablet, Refills 0, Tot. Refills 0, Maintenance, as needed for dyspepsia, 04/28/22 12:08:00 EDT, Do Not Route, Partial fill upon patient request if the prescription is for a schedule II opioid drug. Start Date: 04/28/22 Status: OrderedZyPREXA 10 mg oral tablet 10 mg, 1, tablet, By Mouth, 2 times a day, # 60 tablet, Refills 0, Tot. Refills 0, Maintenance, 03/17/22 12:21:00 EDT, Route to Pharmacy Electronically, [facility], Partial fill upon patient request if the prescription is for a schedule II opioid... Start Date: 03/17/22 Stop Date: 04/16/22 Status: Ordered Problem List Condition Effective Dates Status Health Status Informant Borderline personality Active disorder(Confirmed) Dyslipidemia(Confirmed) Active Intellectual disability(Confirmed) Active Iron deficiency anemia(Confirmed) Active Major depressive disorder(Confirmed) Active Migraine(Confirmed) Active Obese class II(Confirmed) Active Class 2 obesity with body mass index Active (BMI) of 38.0 to 38.9 in adult(Confirmed) PTSD (post-traumatic stress Active disorder)(Confirmed) Type 2 diabetes mellitus(Confirmed) Active Results Radiology Reports Exam Date Time Procedure Performing Provider Status 05/17/22 7:27 AM Abdomen AP Porsha Ortiz (Verified ) Notes:(Abdomen AP) Reason For Exam: Foreign BodyRESULT: XR Abdomen AP XR Abdomen AP 1 view INDICATION/CLINICAL QUESTION: Reason: Foreign Body; Clinical Question(s): Foreign Body COMPARISON: X-ray 05/16/2022 FINDINGS: 2 foreign bodies with the appearance of AA batteries project over the cecum. These were seen to be within potentially small bowel or the right colon on the day before. A moderate amount of gas is present in the colon as well as distal small bowel, increased from the day before, but without an obstructive pattern. No evidence of pneumoperitoneum. No organomegaly, masses or calcifications. No acute bone findings. IMPRESSION: Two foreign bodies with the appearance of AA batteries project over the cecum. WSN: [id number] Ordering Physician: Asia Fowler Dictated By: Pierre Zavala MD Dictated Date/Time: 05/17/22 2:53 pm Reviewed By: Pierre Zavala MD Signed By: Pierre Zavala MD Signed Date/Time: 05/17/22 2:53 pm Transcribed By: LAINA Transcribed Date/Time: 05/17/22 2:50 pm Exam Date Time Procedure Performing Provider Status 05/16/22 12:18 PM Abdomen AP Sharee Cooper; Ben jessica Notes:(Abdomen AP) Reason For Exam: fbRESULT: XR Abdomen AP XR Abdomen AP 1 view INDICATION/CLINICAL QUESTION: Reason: fb COMPARISON: 05/14/2022 FINDINGS: Nonobstructed bowel gas pattern with 2 radiopaque foreign object seen projecting at the right mid abdomen and right upper quadrant. These are in the expected area of the right-sided bowel, likely within the distal small bowel and proximal colon. No interval other acute change. IMPRESSION: Persistent foreign objects (batteries) in the right abdomen. WSN: [id number] Ordering Physician: Yajaira Moyer Dictated By: Morena Dobbins MD Dictated Date/Time: 05/16/22 5:40 pm Reviewed By: Morena Dobbins MD Signed By: Morena Dobbins MD Signed Date/Time: 05/16/22 5:40 pm Transcribed By: LAINA Transcribed Date/Time: 05/16/22 5:36 pm Exam Date Time Procedure Performing Provider Status 05/14/22 5:04 AM Abdomen AP Sharee Cooper; Auth (Ve rified) Notes:(Abdomen AP) Reason For Exam: Foreign BodyRESULT: XR Abdomen AP XR Abdomen AP TECHNIQUE: Supine view of the abdomen and pelvis, 2 images. Reason: Foreign Body; Clinical Question(s): Foreign Body; Order Comment: 05 14 2022 04:48:10 EDT called down. COMPARISON: Multiple prior examinations, most recent 05/12/2022. FINDINGS: Lines and tubes: None. Gas pattern: Increased prominent small bowel gas in the right lower quadrant, which is new. Small amount of air in the stomach and a decreasing air throughout the large bowel. Free air: No evidence of pneumoperitoneum. Soft tissue: 2 radiopaque batteries are again identified, again seen in the right abdomen, projecting over the expected location of the ascending colon/hepatic flexure. Bones: No acute abnormality. IMPRESSION: Mildly increased prominent small bowel gas, a nonspecific finding. Grossly unchanged position of the radiopaque batteries. WSN: [id number] Ordering Physician: Asia Fowler Dictated By: Sid Guzman MD Dictated Date/Time: 05/14/22 7:51 am Reviewed By: Sid Guzman MD Signed By: Sid Guzman MD Signed Date/Time: 05/14/22 7:51 am Transcribed By: LAINA Transcribed Date/Time: 05/14/22 7:48 am Exam Date Time Procedure Performing Provider Status 05/12/22 10:29 AM Abdomen AP Dave SegundoVerna Schilling (Verifie d) Notes:(Abdomen AP) Reason For Exam: h/o F.B in cecum;Nausea/VomitingRESULT: XR Abdomen AP XR Abdomen AP TECHNIQUE: A supine view of the abdomen and pelvis, 2 images. Reason: Nausea Vomiting; h o F.B in cecum; Clinical Question(s): Foreign Body. COMPARISON: Multiple priors, most recently 05/10/2022. FINDINGS: Lines and tubes: None. Gas pattern: Normal bowel gas pattern. No evidence of obstruction. Free air: No evidence of pneumoperitoneum. Soft tissue: Redemonstration of 2 radiopaque batteries, now seen in the right upper quadrant, projecting over the hepatic flexure of the colon. Bones: No acute abnormality. Visualized lung bases: Clear. No appreciable consolidation or pleural effusion. IMPRESSION: The ingested radiopaque batteries appear to have progressed to the hepatic flexure of the colon. WSN: [id number] Ordering Physician: Asia Fowler Dictated By: Sid Guzman MD Dictated Date/Time: 05/12/22 12:29 p Reviewed By: Sid Guzman MD Signed By: Sid Guzman MD Signed Date/Time: 05/12/22 12:29 pm Transcribed By: LAINA Transcribed Date/Time: 05/12/22 12:27 pm Exam Date Time Procedure Performing Provider Status 05/10/22 10:53 AM Abdomen AP Porsha Ortiz; Shakir (Hrienifie d) Notes:(Abdomen AP) Reason For Exam: Foreign Body;Other:RESULT: XR Abdomen AP XR Abdomen AP TECHNIQUE: Supine view of the abdomen and pelvis, 2 images. Reason: Foreign Body; Clinical Question(s): Foreign Body; location ofAAA batery. COMPARISON: Multiple priors, most recently 05/09/2022. FINDINGS: Lines and tubes: None. Gas pattern: Normal bowel gas pattern with mostly air and stool within large bowel. Free air: No evidence of pneumoperitoneum. Soft tissue: Redemonstration of 2 batteries, now projecting over the right lower quadrant and likelywithin the cecum. Bones: No acute abnormality. Visualized lung bases: Clear. No appreciable consolidation or pleural effusion. IMPRESSION: The 2 ingested foreign bodies appear to have passed into the cecum. WSN: [id number] Ordering Physician: Danya Hall Dictated By: Sid Guzman MD Dictated Date/Time: 05/10/22 3:48 pm Reviewed By: Sid Guzman MD Signed By: Sid Guzman MD Signed Date/Time: 05/10/22 3:48 pm Transcribed By: LAINA Transcribed Date/Time: 05/10/22 3:42 pm Exam Date Time Procedure Performing Provider Status 05/09/22 10:30 AM Abdomen AP Porsha Ortiz; Auth (Papo jessica) Notes:(Abdomen AP) Reason For Exam: Other:RESULT: XR Abdomen AP XR Abdomen AP 1 view INDICATION/CLINICAL QUESTION: Reason: Other:; Clinical Question(s): Foreign Body; location ofAAA batery COMPARISON: Abdominal radiograph from 05/08/2022 FINDINGS: Ingested batteries projecting over the mid lower abdomen, likely within the mid to distal small bowel loops. Gaseous distention to bowel loops projecting inferiorly within the lower abdomen, nonspecific. No air-fluid levels. Limited evaluation for pneumoperitoneum in the setting of supine positioning. No acute bone findings. IMPRESSION: Pair of ingested batteries projecting over the lower mid abdomen, likely within small bowel loops. No air-fluid levels or specific evidence of obstruction, noting for gas distended bowel loops inferior to the batteries. Recommend attention on follow-up. A critical result message (Document Only [place]) has been communicated via the [employer]XT[employer] system on 05/09/2022 12:14 PM, Message ID [id number]. WSN: [id number] Ordering Physician: Danya Hall Dictated By: Leonela Gilman MD Dictated Date/Time: 05/09/22 12:14 p Reviewed By: Leonela Gilman MD Signed By: Leonela Gilman MD Signed Date/Time: 05/09/22 12:14 pm Transcribed By: LAINA Transcribed Date/Time: 05/09/22 12:10 pm Exam Date Time Procedure Performing Provider Status 05/08/22 7:57 PM Abdomen AP [place] , Thuthao T; Auth (Verified ) Notes:(Abdomen AP) Reason For Exam: Foreign BodyRESULT: XR Abdomen AP XR Abdomen AP INDICATION/CLINICAL QUESTION: Reason: Foreign Body; Clinical Question(s): Foreign Body; Special Instructions: Flat COMPARISON: X-ray 05/02/22 FINDINGS: A pair of ingested AA or AAA batteries projecting in the mid epigastric region within the expected stomach. No evidence of pneumoperitoneum. No organomegaly, masses or calcifications. No acute bone findings. IMPRESSION: A pair of ingested AA or AAA batteries projecting in the mid epigastric region within the expected stomach. A critical result message (Document Only) has been communicated via the [employer] system on 05/08/2022 8:04 PM, Message ID [id number]. WSN: [id number] Ordering Physician: Arturo Morcoho Dictated By: Jordan Hager MD Dictated Date/Time: 05/08/22 8:04 pm Reviewed By: Jordan Hager MD Signed By: Jordan Hager MD Signed Date/Time: 05/08/22 8:04 pm Transcribed By: LAINA Transcribed Date/Time: 05/08/22 8:02 pm Vital Signs Most recent to oldest 1 2 3 [Reference Range]: Height 163 cm 163 cm 163 cm (05/18/22 4:41 AM) (05/17/22 2:31 PM) (05/17/22 4:5 9 AM) Weight 100 kg 100 kg 80 kg (05/17/22 2:31 PM) (05/08/22 10:37 PM) (05/08/22 8: 14 PM) Oxygen Saturation [94-100 %] 95 % 97 % 95 % (05/18/22 4:41 AM) (05/17/22 9:00 PM) (05/17/22 5:3 2 PM) Pulse Rate [55-90 bpm] 88 bpm 98 bpm 98 bpm (05/18/22 9:23 AM) *H* *H* (05/18/22 4:41 AM) (05/17/22 9:19 PM) Body Mass Index [18.5-24.99 37.64 kg/m2 kg/m2] *>HHI* (05/17/22 2:31 PM) Body Mass Index [18.5-24.99] 37.64 *>HHI* (05/08/22 10:37 PM) Blood Pressure [90-138/55-84 107/77 mm Hg 107/76 mm Hg 113 /69 mm Hg mm Hg] (05/18/22 9:23 AM) (05/18/22 4:41 AM) (05/17/22 9:1 9 PM) Respiratory Rate [16-30 16 br/min 16 br/min 18 br/mi n br/min] (05/18/22 10:15 AM) (05/18/22 9:18 AM) (05/18/22 4: 41 AM) Temperature [96.8-100.4 DegF] 98.2 DegF 98.4 DegF 97 .4 DegF (05/18/22 4:41 AM) (05/17/22 9:00 PM) (05/17/22 5:1 2 PM) Liters per Minute 3 L/min 0 L/min 0 L/min (05/17/22 5:12 PM) (05/11/22 6:00 AM) (05/10/22 8:0 0 PM) Mode of Delivery (Oxygen) Room air Room air Room a ir (05/18/22 4:41 AM) (05/17/22 9:00 PM) (05/17/22 5:3 2 PM) Blood pressure sites Arm, right Arm, left Arm, left (05/18/22 4:41 AM) (05/17/22 9:00 PM) (05/17/22 5:1 2 PM) Temperature Route Oral Oral Temporal (05/18/22 4:41 AM) (05/17/22 9:00 PM) (05/17/22 5:1 2 PM) Dry Weight 100 kg 80 kg (05/08/22 10:37 PM) (05/08/22 8:14 PM) Social History Social History Type Response Smoking Status Never (less than 100 in life time) entered on: 10/20/21 Sex XR Abdomen AP [facility] , CIS S: TRANSCRIBE Pierre Zavala MD: VERIFY Event Display: Result: Authored Date: [id number] XR Abdomen AP 1 view INDICATION/CLINICAL QUESTION: Reason: Foreign Body; Clinical Question(s): Foreign Body COMPARISON: X-ray 05/16/2022 FINDINGS: 2 foreign bodies with the appearance of AA batteries project over the cecum. These were seen to be within potentially small bowel or the right colon on the day before. A moderate amount of gas is present in the colon as well as distal small bowel, increased from the day before, but without an obstructive pattern. No evidence of pneumoperitoneum. No organomegaly, masses or calcifications. No acute bone findings. IMPRESSION: Two foreign bodies with the appearance of AA batteries project over the cecum. WSN: [id number] Ordering Physician: Asia Fowler Dictated By: Pierre Zavala MD Dictated Date/Time: 05/17/22 2:53 pm Reviewed By: Pierre Zavala MD Signed By: Pierre Zavala MD Signed Date/Time: 05/17/22 2:53 pm Transcribed By: LAINA Transcribed Date/Time: 05/17/22 2:50 pmBHSPowerscribe , CIS S: TRANSCMorena Simmons MD: VERIFY Event Display: Result: Authored Date: [id number] XR Abdomen AP 1 view INDICATION/CLINICAL QUESTION: Reason: fb COMPARISON: 05/14/2022 FINDINGS: Nonobstructed bowel gas pattern with 2 radiopaque foreign object seen projecting at the right mid abdomen and right upper quadrant. These are in the expected area of the right-sided bowel, likely within the distal small bowel and proximal colon. No interval other acute change. IMPRESSION: Persistent foreign objects (batteries) in the right abdomen. WSN: [id number] Ordering Physician: Yajaira Moyer Dictated By: Morena Dobbins MD Dictated Date/Time: 05/16/22 5:40 pm Reviewed By: Morena Dobbins MD Signed By: Morena Dobbins MD Signed Date/Time: 05/16/22 5:40 pm Transcribed By: LAINA Transcribed Date/Time: 05/16/22 5:36 pmBHSPowerscribe , CIS S: TRANSCRIBE Sid Guzman MD: VERIFY Event Display: Result: Authored Date: [id number] XR Abdomen AP TECHNIQUE: Supine view of the abdomen and pelvis, 2 images. Reason: Foreign Body; Clinical Question(s): Foreign Body; Order Comment: 05 14 2022 04:48:10 EDT called down. COMPARISON: Multiple prior examinations, most recent 05/12/2022. FINDINGS: Lines and tubes: None. Gas pattern: Increased prominent small bowel gas in the right lower quadrant, which is new. Small amount of air in the stomach and a decreasing air throughout the large bowel. Free air: No evidence of pneumoperitoneum. Soft tissue: 2 radiopaque batteries are again identified, again seen in the right abdomen, projecting over the expected location of the ascending colon/hepatic flexure. Bones: No acute abnormality. IMPRESSION: Mildly increased prominent small bowel gas, a nonspecific finding. Grossly unchanged position of the radiopaque batteries. WSN: [id number] Ordering Physician: Asia Fowler Dictated By: Sid Guzman MD Dictated Date/Time: 05/14/22 7:51 am Reviewed By: Sid Guzman MD Signed By: Sid Guzman MD Signed Date/Time: 05/14/22 7:51 am Transcribed By: LAINA Transcribed Date/Time: 05/14/22 7:48 amBHSPowerscribe , CIS S: TRANSCRIBE Sid Guzman MD: VERIFY Event Display: Result: Authored Date: [id number] XR Abdomen AP TECHNIQUE: A supine view of the abdomen and pelvis, 2 images. Reason: Nausea Vomiting; h o F.B in cecum; Clinical Question(s): Foreign Body. COMPARISON: Multiple priors, most recently 05/10/2022. FINDINGS: Lines and tubes: None. Gas pattern: Normal bowel gas pattern. No evidence of obstruction. Free air: No evidence of pneumoperitoneum. Soft tissue: Redemonstration of 2 radiopaque batteries, now seen in the right upper quadrant, projecting over the hepatic flexure of the colon. Bones: No acute abnormality. Visualized lung bases: Clear. No appreciable consolidation or pleural effusion. IMPRESSION: The ingested radiopaque batteries appear to have progressed to the hepatic flexure of the colon. WSN: [id number] Ordering Physician: Asia Fowler Dictated By: Sid Guzman MD Dictated Date/Time: 05/12/22 12:29 p Reviewed By: Sid Guzman MD Signed By: Sid Guzman MD Signed Date/Time: 05/12/22 12:29 pm Transcribed By: LAINA Transcribed Date/Time: 05/12/22 12:27 pmSPlorin , CIS S: TRANSCRISid Rutledge MD: VERIFY Event Display: Result: Authored Date: [id number] XR Abdomen AP TECHNIQUE: Supine view of the abdomen and pelvis, 2 images. Reason: Foreign Body; Clinical Question(s): Foreign Body; location ofAAA batery. COMPARISON: Multiple priors, most recently 05/09/2022. FINDINGS: Lines and tubes: None. Gas pattern: Normal bowel gas pattern with mostly air and stool within large bowel. Free air: No evidence of pneumoperitoneum. Soft tissue: Redemonstration of 2 batteries, now projecting over the right lower quadrant and likelywithin the cecum. Bones: No acute abnormality. Visualized lung bases: Clear. No appreciable consolidation or pleural effusion. IMPRESSION: The 2 ingested foreign bodies appear to have passed into the cecum. WSN: [id number] Ordering Physician: Danya Hall Dictated By: Sid Guzman MD Dictated Date/Time: 05/10/22 3:48 pm Reviewed By: Sid Guzman MD Signed By: Sid Guzman MD Signed Date/Time: 05/10/22 3:48 pm Transcribed By: LAINA Transcribed Date/Time: 05/10/22 3:42 pmSPlorin , CIS S: PHYLLISRILeonela Hurt MD S: VERIFY Event Display: Result: Authored Date: [id number] XR Abdomen AP 1 view INDICATION/CLINICAL QUESTION: Reason: Other:; Clinical Question(s): Foreign Body; location ofAAA batery COMPARISON: Abdominal radiograph from 05/08/2022 FINDINGS: Ingested batteries projecting over the mid lower abdomen, likely within the mid to distal small bowel loops. Gaseous distention to bowel loops projecting inferiorly within the lower abdomen, nonspecific. No air-fluid levels. Limited evaluation for pneumoperitoneum in the setting of supine positioning. No acute bone findings. IMPRESSION: Pair of ingested batteries projecting over the lower mid abdomen, likely within small bowel loops. No air-fluid levels or specific evidence of obstruction, noting for gas distended bowel loops inferior to the batteries. Recommend attention on follow-up. A critical result message (Document Only [place]) has been communicated via the [employer] system on 05/09/2022 12:14 PM, Message ID [id number]. WSN: [id number] Ordering Physician: Danya Hall Dictated By: Leonela Gilman MD Dictated Date/Time: 05/09/22 12:14 p Reviewed By: Leonela Gilman MD Signed By: Leonela Gilman MD Signed Date/Time: 05/09/22 12:14 pm Transcribed By: LAINA Transcribed Date/Time: 05/09/22 12:10 pmBHSPowerscribe , PADMINI S: TRANSCRIBE Jordan Hager MD: VERIFY Event Display: Result: Authored Date: [id number] XR Abdomen AP INDICATION/CLINICAL QUESTION: Reason: Foreign Body; Clinical Question(s): Foreign Body; Special Instructions: Flat COMPARISON: X-ray 05/02/22 FINDINGS: A pair of ingested AA or AAA batteries projecting in the mid epigastric region within the expected stomach. No evidence of pneumoperitoneum. No organomegaly, masses or calcifications. No acute bone findings. IMPRESSION: A pair of ingested AA or AAA batteries projecting in the mid epigastric region within the expected stomach. A critical result message (Document Only) has been communicated via the [employer] system on 05/08/2022 8:04 PM, Message ID [id number]. WSN: [id number] Ordering Physician: Arturo Morocho Dictated By: Jordan Hager MD Dictated Date/Time: 05/08/22 8:04 pm Reviewed By: Jordan Hager MD Signed By: Jordan Hager MD Signed Date/Time: 05/08/22 8:04 pm Transcribed By: LAINA Transcribed Date/Time: 05/08/22 8:02 pm Care Team PersonnelName: Geeta Blanca MD Address: [address] [place] [address]
--- OUTSIDE RECORDS SUMMARY | 2022-05-25 19:53 | XMS_ITS | Continuity of Care Document ---
:1995 Author Organization [facility] Address [address] [place] [address]- Care Team Providers Name Role Phone Not on Staff, PCP Primary Care Physician Unavailable Encounter [facility] [id number] Date(s): 08/16/21 - 08/16/[address] [address]- Encounter Diagnosis Abdominal pain (Final) - 08/16/21 Discharge Disposition: A-D/C Home Attending Physician: Bailee MACHUCA, Arturo Jade Admitting Physician: Arturo Morocho MD Referring Physician: Not on Staff, Referring MD Allergies, Adverse Reactions, Alerts Substance Reaction Severity Status shellfish Active Thorazine Active Depakote Risperidone adverse reaction Act anival Risperidone Risperidone Risperidone Risperidone Risperidone Risperidone Tomatoes Active Lactose Active RisperDAL Active Medications Ativan 0.5 mg oral tablet 1 tablet = 0.5 mg, By Mouth, Daily, in AM, 0 Refills, Maintenance, 08/16/21 2:08:00 EST, Tablet, Partial fill upon patient request if the prescription is for a schedule II opioid drug. Start Date: 08/16/21 Status: Orderedbaclofen 5 mg oral tablet 1 [...] opioid drug. Start Date: 08/16/21 Status: Orderedbenztropine 0.5 mg oral tablet 0.5 [...] opioid drug. Start Date: 08/16/21 Status: Orderedhaloperidol 10 mg oral tablet 10 mg, 1, tablet, By Mouth, 2 times a day, Pt. takes with the 5mg pill for 15 total, # 60 tablet, Refills 0, Maintenance, 08/16/21 2:24:00 EST, Partial fill upon patient request if the prescription is for a schedule II opioid drug. Start Date: 08/16/21 Status: Orderedhaloperidol 5 mg oral tablet 5 mg, 1, tablet, By Mouth, 2 times a day, # 60 tablet, Refills 0, Maintenance, 08/16/21 1:57:00 EST,Partial fill upon patient request if the prescription is for a schedule II opioid drug. Start Date: 08/16/21 Status: OrderedMotrin IB 200 mg oral tablet [...] II opioid drug. Start Date: 08/16/21 Status: OrderedToradol Inj 15 mg, Injection, IV Push Slowly, Once, STAT, 08/16/21 2:55:00 EST, Stop date 08/16/21 2:55:00 EST Start Date: 08/16/21 Stop Date: 08/16/21 Status: CompletedZofran 4 mg oral tablet 1 tablet = 4 mg, By Mouth, Every 8 hours, PRN Vomiting, # 12 tablet, 0 Refills, Maintenance, 08/16/21 2:07:00 EST, Tablet, Partial fill upon patient request if the prescription is for a schedule II opioid drug. Start Date: 08/16/21 Status: Ordered Results Radiology Reports Exam Date Time Procedure Performing Provider Status 08/16/21 4:28 AM Abdomen Series W/ PA Chest Tara Genao; Auth (Verified) Notes:(Abdomen Series W/ PA Chest) Reason For Exam: PainRESULT: Abdomen Series W/ PA Chest Abdomen Series W/ PA Chest views Reason: Pain; Clinical Question(s): Obstruction; Free Air COMPARISON: None. FINDINGS: LINES AND TUBES: None. LUNGS AND PLEURA: Very low lung volumes. Allowing for this, the lungs are grossly clear. No pleural effusion. No pneumothorax. HEART, MEDIASTINUM AND TAMAR: Normal. BOWEL GAS PATTERN AND SOFT TISSUES: Normal bowel gas pattern. No pneumoperitoneum. No abnormal calcifications. Surgical clips overlie the right upper quadrant. Metallic artifact overlying the lower pelvis is presumably jewelry of some sort. BONES: Normal bones. IMPRESSION: Normal bowel gas pattern. WSN: [id number] Ordering Physician: Arturo Morocho Dictated By: Cesar Angeles MD Dictated Date/Time: 08/16/21 7:07 am Reviewed By: Cesar Angeles MD Signed By: Cesar Angeles MD Signed Date/Time: 08/16/21 7:07 am Transcribed By: LAINA Transcribed Date/Time: 08/16/21 7:05 am Vital Signs Most recent to oldest 1 2 3 [Reference Range]: Height 155 cm (08/16/21 1:56 AM) Weight 82 kg (08/16/21 1:56 AM) Oxygen Saturation [94-100 96 % 99 % %] (08/16/21 7:45 AM) (08/16/21 12:39 AM) Pulse Rate [55-90 bpm] 101 bpm 114 bpm *H* *H* (08/16/21 7:45 AM) (08/16/21 12:39 AM) Blood Pressure 111/71 mm Hg 119/95 mm Hg [90-138/55-84 mm Hg] (08/16/21 7:45 AM) (08/16/21 12:39 AM) Respiratory Rate [16-30 18 br/min 20 br/min 18 br/mi n br/min] (08/16/21 7:45 AM) (08/16/21 3:28 AM) (08/16/21 12:39 AM) Temperature [96.8-100.4 98.9 DegF DegF] (08/16/21 12:39 AM) Mode of Delivery (Oxygen) Room air Room air (08/16/21 7:45 AM) (08/16/21 12:39 AM) Blood pressure sites Arm, right Arm, right (08/16/21 7:45 AM) (08/16/21 12:39 AM) Temperature Route Oral (08/16/21 12:39 AM) Dry Weight 82 kg (08/16/21 1:56 AM) Weight Obtained Via Patient/family stated (08/16/21 1:56 AM) Dry Weight Obtained Via Patient/family stated (08/16/21 1:56 AM)
--- OUTSIDE RECORDS SUMMARY | 2022-05-25 19:53 | XMS_ITS | Continuity of Care Document ---
:1995 Author Organization [facility] Address [address] [place] [address]- Care Team Providers Name Role Phone Geeta Blanca MD Primary Care Physician Encounter [facility] Date(s): 05/01/22 - 05/02/[address] [address]- Discharge Disposition: Transferred to short-term general hospit Attending Physician: Garrett Reyes MD Admitting Physician: Garrett Reyes MD Referring Physician: Not on Staff, Referring [...] II opioid drug. Start Date: 04/28/22 Status: Orderedbaclofen 5 mg oral tablet 1 tablet = 5 mg, By Mouth, 2 times a day, PRN muscle spasms/pain, # 9 tablet, 0 Refills, Maintenance, 04/28/22 12:06:00 EDT, Tablet, Partial fill upon patient request if the prescription is for a schedule II opioid drug. Start Date: 04/28/22 Status: Orderedbenztropine 1 mg oral tablet 1 mg, 1, tablet, By Mouth, 2 times a day, # 60 tablet, Refills 0, Tot. Refills 0, Maintenance, 03/17/22 12:20:00 EDT, Route to Pharmacy Electronically, [facility], Partial fill upon patient request if the prescription is for a schedule II opioid... Start Date: 03/17/22 Stop Date: 04/16/22 Status: OrdereddiphenhydrAMINE 50 mg oral tablet = 50 mg, By Mouth, Daily in AM, # 15 tablet, 0 Refills, Maintenance, 04/28/22 12:03:00 EDT, Tablet, Partial fill upon patient request if the prescription is for a schedule II opioid drug. Start Date: 04/28/22 Status: Orderedferrous fumarate 325 mg oral tablet 1 tablet = 325 mg, By Mouth, Every other day, # 15 tablet, 0 Refills, Maintenance, 03/17/22 12:20:00EDT, Tablet, [facility], Partial fill upon patient request if the prescription is for a schedule II opioid drug., 160, cm, 03/15/22 16:19:00 EDT,... Start Date: 03/17/22 Status: Orderedhaloperidol 10 mg oral tablet 15 mg, 1.5, tablet, By Mouth, 2 times a day, # 90 tablet, Refills 0, Tot. Refills 0, Maintenance, 03/17/22 12:23:00 EDT, Route to Pharmacy Electronically, [facility], Partial fill upon patient request if the prescription is for a schedule II opio... Start Date: 03/17/22 Stop Date: 04/16/22 Status: OrderedMetformin = 1,000 mg, By Mouth, 2 times a day, 0 Refills, Maintenance, 04/21/22 22:21:00 EDT, Partial fill upon patient request if the prescription is for a schedule II opioid drug. Start Date: 04/21/22 Status: OrderedMiraLax Powder 1 pack/packet = 17 Gm, By Mouth, Daily, 0 Refills, Maintenance, 04/28/22 12:04:00 EDT, Powder, Partial fill upon patient request if the prescription is for a schedule II opioid drug. Start Date: 04/28/22 Status: OrderedNeurontin 100 mg oral capsule 100 mg, 1, capsule, By Mouth, 3 times a day, # 90 capsule, Refills 0, Tot. Refills 0, Maintenance, 03/17/22 12:22:00 EDT, Route to Pharmacy Electronically, [facility], Partial fill upon patient request if the prescription is for a schedule II opi... Start Date: 03/17/22 Stop Date: 04/16/22 Status: Orderedolanzapine 5 mg oral tablet 5 mg, 1, tablet, By Mouth, Every 12 hours, PRN, # 2 tablet, Refills 0, Tot. Refills 0, Maintenance, Agitation, 04/28/22 12:07:00 EDT, Do Not Route, Partial fill upon patient request if the prescriptionis for a schedule II opioid drug. Start Date: 04/28/22 Status: Orderedondansetron 4 mg oral tablet 1 [...] 03/17/22 12:22:00 EDT, Route to Pharmacy Electronically, [facility], Partial fill upon patient request if the prescription is for a schedule II opioid... Start Date: 03/17/22 Stop Date: 04/16/22 Status: Orderedsenna 17.2 mg oral tablet 1 tablet = 17.2 mg, By Mouth, Daily, PRN for constipation, # 12 tablet, 0 Refills, Maintenance, 04/28/22 12:09:00 EDT, Tablet, Partial fill upon patient request if the prescription is for a schedule IIopioid drug. Start Date: 04/28/22 Status: OrderedSUMAtriptan 25 mg oral tablet 4 [...] 03/17/22 12:25:00 EDT, Route to Pharmacy Electronically, [facility], Partial fill upon patient request if [...] 03/17/22 12:21:00 EDT, Route to Pharmacy Electronically, [facility], Partial fill upon patient request if [...] Exam Date Time Procedure Performing Provider Status 05/01/22 10:14 PM Abdomen AP [place] , Thuthao T; Auth (Verifie d) Notes:(Abdomen AP) Reason For Exam: foreign body ingestion;Other:RESULT: XR Abdomen AP XR Abdomen AP 1 view INDICATION/CLINICAL QUESTION: Hx of Present Illness: patient reports eating a screw today -- - patient reports wanting to hurt herself but doesnt want to discuss plan - patient reports eating a batteryrecently and needing surgery --; Reason: Other:; foreign body ingestion; Clinical Question(s): Foreign Body; Special Instructions: Upright COMPARISON: None FINDINGS: A screw is seen in position in the upper abdomen projecting over the distal stomach. No evidence of pneumoperitoneum. No organomegaly, masses or calcifications. No acute bone findings. IMPRESSION: Screw seen projecting over the distal stomach. No evidence of free air or obstruction on limited exam. WSN: [id number] Ordering Physician: Kar Moe Dictated By: Herman Eason MD Dictated Date/Time: 05/01/22 10:43 p Reviewed By: Herman Eason MD Signed By: Herman Eason MD Signed Date/Time: 05/01/22 10:43 pm Transcribed By: CSEric Transcribed Date/Time: 05/01/22 10:40 pm Vital Signs Most recent to oldest 1 2 3 [Reference Range]: Height 0 cm 0 cm 0 cm (05/01/22 11:14 PM) (05/01/22 9:50 PM) (05/01/22 9: 49 PM) Weight 100 kg 100 kg 1 (05/01/22 11:14 PM) (05/01/22 9:50 PM) Oxygen Saturation [94-100 %] 99 % 98 % 99 % (05/02/22 2:36 AM) (05/01/22 11:14 PM) (05/01/22 9: 49 PM) Pulse Rate [55-90 bpm] 98 bpm 102 bpm 109 bpm *H* *H* *H* (05/02/22 2:36 AM) (05/01/22 11:14 PM) (05/01/22 9: 49 PM) Blood Pressure [90-138/55-84 109/73 mm Hg 112/55 mm Hg 115 /76 mm Hg mm Hg] (05/02/22 2:36 AM) (05/01/22 11:14 PM) (05/01/22 9: 49 PM) Respiratory Rate [16-30 16 br/min 20 br/min 16 br/mi n br/min] (05/02/22 2:36 AM) (05/01/22 11:14 PM) (05/01/22 9: 49 PM) Temperature [96.8-100.4 DegF] 97.8 DegF 98.2 DegF (05/02/22 2:36 AM) (05/01/22 9:49 PM) Mode of Delivery (Oxygen) Room air Room air Room a ir (05/02/22 2:36 AM) (05/01/22 11:14 PM) (05/01/22 9: 49 PM) Blood pressure sites Arm, right Arm, right (05/01/22 11:14 PM) (05/01/22 9:49 PM) Temperature Route Axillary Oral (05/02/22 2:36 AM) (05/01/22 9:49 PM) Dry Weight 100 kg 100 kg (05/01/22 11:14 PM) (05/01/22 9:50 PM) 1Result Comment: patient reports not knowing how much she weighed-- looking in the chart it previously had 100kg -- Social History Social History Type Response Smoking Status Never (less than 100 in life time) entered on: 10/20/21 Sex XR Abdomen AP [facility]SP[facility]erscribe , CIS S: TRANSCRIBE Herman Eason MD: VERIFY Event Display: Result: Authored Date: XR Abdomen AP 1 view INDICATION/CLINICAL QUESTION: Hx of Present Illness: patient reports eating a screw today -- - patient reports wanting to hurt herself but doesnt want to discuss plan - patient reports eating a batteryrecently and needing surgery --; Reason: Other:; foreign body ingestion; Clinical Question(s): Foreign Body; Special Instructions: Upright COMPARISON: None FINDINGS: A screw is seen in position in the upper abdomen projecting over the distal stomach. No evidence of pneumoperitoneum. No organomegaly, masses or calcifications. No acute bone findings. IMPRESSION: Screw seen projecting over the distal stomach. No evidence of free air or obstruction on limited exam. WSN: [id number] Ordering Physician: Kar Moe Dictated By: Herman Eason MD Dictated Date/Time: 05/01/22 10:43 p Reviewed By: Herman Eason MD Signed By: Herman Eason MD Signed Date/Time: 05/01/22 10:43 pm Transcribed By: LAINA Transcribed Date/Time: 05/01/22 10:40 pm Care Team PersonnelName: Geeta Blanca MD Address: [address] [place] [address]
--- OUTSIDE RECORDS SUMMARY | 2022-05-25 19:53 | XMS_ITS | Continuity of Care Document ---
:1995 Author Organization [facility] Address [address] [place] [address]- Care Team Providers Name Role Phone Geeta Blanca MD Primary Care Physician Encounter [facility] Date(s): 03/21/22 - 03/22/[address] [address]- Discharge Disposition: A-D/C Home Attending Physician: Arturo Morocho MD Admitting Physician: Arturo Morocho MD Referring Physician: [...] Acute 04/10/22 12:26:00 EDT, 03/17/22 12:22:00EDT, Tablet, [facility], Partial fill upon p... Start Date: 03/17/22 Stop Date: 04/10/22 Status: Orderedbenztropine 1 mg oral tablet 1 mg, 1, tablet, By Mouth, 2 times a day, # 60 tablet, Refills 0, Tot. Refills 0, Maintenance, 03/17/22 12:20:00 EDT, Route to Pharmacy Electronically, [facility], Partial fill upon patient request if the prescription is for a schedule II opioid... Start Date: 03/17/22 Stop Date: 04/16/22 Status: OrdereddiphenhydrAMINE 50 mg oral tablet = 50 mg, By Mouth, Daily, PRN Itch, for 21 days, # 21 tablet, 0 Refills, Acute 04/07/22 12:20:00 EDT, 03/17/22 12:20:00 EDT, Tablet, [facility], Partial fill upon patient request if the prescription is for a schedule II opioid drug., 160, cm, ... Start Date: 03/17/22 Stop Date: 04/07/22 Status: Ordereddocusate-senna 50 mg-8.6 mg oral capsule 2 capsule, By Mouth, Daily, PRN Constipation, for 14 days, # 28 capsule, 0 Refills, Acute 03/31/22 12:20:00 EDT, 03/17/22 12:20:00 EDT, Capsule, [facility], Partial fill upon patient request if the prescription is for a schedule II opioid drug.,... Start Date: 03/17/22 Stop Date: 03/31/22 Status: Orderedferrous fumarate 325 mg oral tablet 1 tablet = 325 mg, By Mouth, Every other day, # 15 tablet, 0 Refills, Maintenance, 03/17/22 12:20:00EDT, Tablet, [facility], Partial fill upon patient request if the prescription is for a schedule II opioid drug., 160, cm, 03/15/22 16:19:00 EDT,... Start Date: 03/17/22 Status: Orderedhaloperidol 10 mg oral tablet 15 mg, 1.5, tablet, By Mouth, 2 times a day, # 90 tablet, Refills 0, Tot. Refills 0, Maintenance, 03/17/22 12:23:00 EDT, Route to Pharmacy Electronically, [facility], Partial fill upon patient request if the prescription is for a schedule II opio... Start Date: 03/17/22 Stop Date: 04/16/22 Status: OrderedmetFORMIN 500 mg oral tablet 2 each = 1,000 mg, By Mouth, 2 times a day with meals, # 56 tablet, 1 Refills, Maintenance, 03/17/2212:21:00 EDT, Tablet, [facility], Partial fill upon patient request if the prescription is for a schedule II opioid drug., 160, cm, 03/15/22 16:1... Start Date: 03/17/22 Stop Date: 04/14/22 Status: OrderedNeurontin 100 mg oral capsule 100 mg, 1, capsule, By Mouth, 3 times a day, # 90 capsule, Refills 0, Tot. Refills 0, Maintenance, 03/17/22 12:22:00 EDT, Route to Pharmacy Electronically, [facility], Partial fill upon patient request if [...] 03/24/22 12:27:00 EDT, 03/17/22 12:27:00 EDT, Tablet, [facility], Partial fill upon patient request if the prescription is for a schedule II opioid... Start Date: 03/17/22 Stop Date: 03/24/22 Status: OrderedoxyCODONE 5 mg oral tablet 5 mg, 1, tablet, By Mouth, 3 times a day, PRN, for 7 days, # 21 tablet, Refills 0, Tot. Refills 0, Acute 03/24/22 12:27:00 EDT, Pain , Moderate, 03/17/22 12:27:00 EDT, Route to Pharmacy Electronically,[facility], Partial fill upon patient reques... Start Date: 03/17/22 Stop Date: 03/24/22 Status: Orderedpolyethylene glycol 3350 oral powder for reconstitution = 17 Gm, By Mouth, Daily, for 14 days, dissolve in water before taking, # 238 Gm, 0 Refills, Acute 03/31/22 12:22:00 EDT, 03/17/22 12:22:00 EDT, REC Powder, [facility], Partial fill upon patient request if the prescription is for a schedule II op... Start Date: 03/17/22 Stop Date: 03/31/22 Status: Orderedpropranolol 20 mg oral tablet 20 mg, 1, tablet, By Mouth, 2 times a day, # 60 tablet, Refills 0, Tot. Refills 0, Maintenance, 03/17/22 12:22:00 EDT, Route to Pharmacy Electronically, [facility], Partial fill upon patient request if [...] 03/17/22 12:25:00 EDT, Route to Pharmacy Electronically, [facility], Partial fill upon patient request if the prescription is for a schedule II op... Start Date: 03/17/22 Stop Date: 04/16/22 Status: OrderedZyPREXA 10 mg oral tablet 10 mg, 1, tablet, By Mouth, 2 times a day, # 60 tablet, Refills 0, Tot. Refills 0, Maintenance, 03/17/22 12:21:00 EDT, Route to Pharmacy Electronically, [facility], Partial fill upon patient request if [...] obesity(Confirmed) Active Type 2 diabetes mellitus(Confirmed) Active Vital Signs Most recent to oldest 1 2 3 [Reference Range]: Height 153 cm 153 cm (03/22/22 8:07 AM) (03/21/22 7:51 PM) Weight 105 kg 105 kg (03/22/22 8:07 AM) (03/21/22 7:51 PM) Oxygen Saturation [94-100 100 % 98 % 100 % %] (03/22/22 8:07 AM) (03/22/22 6:00 AM) (03/21/22 8:00 PM) Pulse Rate [55-90 bpm] 105 bpm 78 bpm 125 bpm *H* (03/22/22 6:00 AM) *H* (03/22/22 8:07 AM) (03/21/22 8:00 P M) Body Mass Index 44.85 [18.5-24.99] *>HHI* (03/22/22 8:07 AM) Blood Pressure 147/98 mm Hg 121/70 mm Hg 152/105 mm Hg [90-138/55-84 mm Hg] *H* (03/22/22 6:00 AM) *H* (03/22/22 8:07 AM) (03/21/22 8:00 P M) Respiratory Rate [16-30 20 br/min 18 br/min 18 br/mi n br/min] (03/22/22 8:07 AM) (03/22/22 6:00 AM) (03/21/22 8:00 PM) Temperature [96.8-100.4 98.1 DegF 98.2 DegF DegF] (03/22/22 8:07 AM) (03/21/22 8:00 PM) Mode of Delivery (Oxygen) Room air Room air Room a ir (03/22/22 8:07 AM) (03/22/22 6:00 AM) (03/21/22 8:00 PM) Blood pressure sites Arm, right Arm, right Arm, left (03/22/22 8:07 AM) (03/22/22 6:00 AM) (03/21/22 8:00 PM) Temperature Route Oral Temporal (03/22/22 8:07 AM) (03/21/22 8:00 PM) Dry Weight 105 kg 105 kg (03/22/22 8:07 AM) (03/21/22 7:51 PM) Weight Obtained Via Patient/family stated (03/21/22 7:51 PM) Social History Social History Type Response Smoking Status Never (less than 100 in life time) entered on: 10/20/21 Sex
--- OUTSIDE RECORDS SUMMARY | 2022-05-25 19:53 | XMS_ITS | Continuity of Care Document ---
:1995 Author Organization [facility] Address [address] [place] [address]- Care Team Providers Name Role Phone Not on Staff, PCP Primary Care Physician Unavailable [id number] Date(s): 10/20/21 - 10/21/[address] [address]- Discharge Disposition: A-D/C Home Attending Physician: Lesa MACHUCA, Kerry Castellon Admitting Physician: Kerry Mcfadden MD Referring Physician: Not on Staff, Referring [...] II opioid drug. Start Date: 08/16/21 Status: OrderedKetorolac Inj 15 mg, Injection, IV Push Slowly, Once, PRN for Other, Pain >2/10, Routine, 10/20/21 23:32:00 EST Start Date: 10/20/21 Stop Date: 10/20/21 Status: CompletedMotrin IB 200 mg oral tablet 2 tablet [...] II opioid drug. Start Date: 08/16/21 Status: Orderedondansetron 4 mg oral tablet, disintegrating 1 tablet = 4 mg, By Mouth, Every 8 hours, PRN Nausea & Vomiting, # 15 tablet, 0 Refills, Acute 10/26/21 2:00:00 EST, 10/21/21 2:19:00 EST, Tablet, [facility], May substitute tablet form if necessary., 156, cm, 10/20/21 21:45:00 EST, Height, 105.2... Start Date: 10/21/21 Stop Date: 10/26/21 Status: OrderedZofran 4 mg oral tablet 1 tablet = 4 mg, By Mouth, Every 8 hours, PRN Vomiting, # 12 tablet, 0 Refills, Maintenance, 08/16/21 2:07:00 EST, Tablet, Partial fill upon patient request if the prescription is for a schedule II opioid drug. Start Date: 08/16/21 Status: Ordered Vital Signs Most recent to oldest [Reference 1 2 3 Range]: Height 156 cm (10/20/21 9:45 PM) Weight 105.2 kg (10/20/21 9:45 PM) Oxygen Saturation [94-100 %] 99 % (10/20/21 9:45 PM) Pulse Rate [55-90 bpm] 101 bpm 134 bpm *H* *H* (10/21/21 2:00 AM) (10/20/21 9:45 PM) Blood Pressure [90-138/55-84 mm 107/61 mm Hg 118/75 mm Hg Hg] (10/21/21 2:00 AM) (10/20/21 9:45 PM) Respiratory Rate [16-30 br/min] 18 br/min 17 br/min 18 br/min (10/21/21 2:00 AM) (10/21/21 12:10 AM) (10/20/21 9:45 PM) Temperature [96.8-100.4 DegF] 99.3 DegF (10/20/21 9:45 PM) Mode of Delivery (Oxygen) Room air (10/20/21 9:45 PM) Blood pressure sites Arm, right (10/20/21 9:45 PM) Temperature Route Oral (10/20/21 9:45 PM) Dry Weight 105.2 kg (10/20/21 9:45 PM) Weight Obtained Via Standing scale (10/20/21 9:45 PM) Social History Social History Type Response Smoking Status Never (less than 100 in life time) entered on: 10/20/21 Sex
--- OUTSIDE RECORDS SUMMARY | 2022-05-25 19:53 | XMS_ITS | Continuity of Care Document ---
:1995 Author Organization [facility] Address [address] [place] [id number]- Care Team Providers Name Role Phone Not on Staff, PCP Primary Care Physician Unavailable [id number] Date(s): 12/31/21 - 12/31/[address] [address]- Encounter Diagnosis Chest pain, atypical (Final) - 12/31/21 N&V (nausea and vomiting) (Final) - 12/31/21 Discharge Disposition: A-D/C Home Attending Physician: Luis Hernadez MD Admitting Physician: Luis Hernadez MD Referring Physician: Not on Staff, Referring MD Allergies, Adverse Reactions, Alerts Substance Reaction Severity Status shellfish Active Thorazine Active Tomatoes Active Lactose Active RisperDAL Active Latex Active Depakote Risperidone adverse reaction Act anival Risperidone Risperidone Risperidone Risperidone Risperidone Risperidone Medications Ativan 0.5 mg oral tablet 1 [...] capsule, By Mouth, 2 times a day, Refills 0, Maintenance, 12/15/21 19:57:00 EDT, Partial fill upon patient request if the prescription is for a schedule II opioid drug. Start Date: 12/15/21 Status: Orderedferrous fumarate 325 mg oral tablet [...] 2 times a day, 0 Refills, Maintenance, 12/15/21 19:58:00 EDT, Partial fill upon patient request if the prescription is for a schedule II opioid drug. Start Date: 12/15/21 Status: OrderedOmeprazole = 20 mg, By Mouth, [...] Height 0 cm 0 cm 0 cm (12/31/21 11:12 PM) (12/31/21 9:47 PM) (12/31/21 7: 43 PM) Weight 104 kg 104 kg 104 kg (12/31/21 9:47 PM) (12/31/21 7:43 PM) (12/31/21 7:4 0 PM) Oxygen Saturation [94-100 %] 98 % 97 % 97 % (12/31/21 11:12 PM) (12/31/21 9:47 PM) (12/31/21 7: 40 PM) Pulse Rate [55-90 bpm] 115 bpm 1 110 bpm 128 bpm *H* *H* *H* (12/31/21 11:12 PM) (12/31/21 9:47 PM) (12/31/21 7: 40 PM) Blood Pressure [90-138/55-84 115/83 mm Hg 124/91 mm Hg 129 /85 mm Hg mm Hg] (12/31/21 11:12 PM) (12/31/21 9:47 PM) (12/31/21 7: 40 PM) Respiratory Rate [16-30 16 br/min 16 br/min br/min] (12/31/21 9:47 PM) (12/31/21 7:40 PM) Temperature [96.8-100.4 DegF] 98.5 DegF 99 DegF (12/31/21 11:12 PM) (12/31/21 7:40 PM) Mode of Delivery (Oxygen) Room air room air Room a ir (12/31/21 11:12 PM) (12/31/21 9:47 PM) (12/31/21 7: 40 PM) Blood pressure sites Arm, right Arm, right Arm, right (12/31/21 11:12 PM) (12/31/21 9:47 PM) (12/31/21 7: 40 PM) Temperature Route Oral Oral (12/31/21 11:12 PM) (12/31/21 7:40 PM) Dry Weight 104 kg 104 kg 104 kg (12/31/21 9:47 PM) (12/31/21 7:43 PM) (12/31/21 7:4 0 PM) 1Result Comment: nurse notified Social History Social History Type Response Smoking Status Never (less than 100 in life time) entered on: 10/20/21 Sex
--- OUTSIDE RECORDS SUMMARY | 2022-05-25 19:53 | XMS_ITS | Continuity of Care Document ---
:1995 [address] Organization [address] [place] [id number]- Care Team Providers Name Role Phone Geeta Blanca MD Primary Care Physician Encounter [facility] Date(s): 03/24/22 - 04/23/[address] [place] [id number] Attending Physician: Tayler Mcclellan Admitting Physician: AdmtrTayler Referring Physician: Admtr, Ar8 Allergies, Adverse Reactions, Alerts Substance Reaction Severity Status shellfish Active Thorazine Active Depakote Risperidone adverse reaction Act anival Risperidone Risperidone Risperidone Risperidone Risperidone Risperidone Latex Active Tomatoes Active RisperDAL Active Immunizations Given and Recorded Vaccine Date Status Refusal Reason SARS-CoV-2 (COVID-19) mRNA-1273 vaccine 01/15/21 Recorded SARS-CoV-2 (COVID-19) mRNA-1273 vaccine 12/18/20 Recorded influenza virus vaccine, inactivated 09/08/20 Recorded Medications benztropine 1 mg oral tablet 1 mg, 1, tablet, By Mouth, 2 times a day, # 60 tablet, Refills 0, Tot. Refills 0, Maintenance, 03/17/22 12:20:00 EDT, Route to Pharmacy Electronically, [facility], Partial fill upon patient request if the prescription is for a schedule II opioid... Start Date: 03/17/22 Stop Date: 04/16/22 Status: Orderedferrous fumarate 325 mg oral tablet 1 tablet = 325 mg, By Mouth, Every other day, # 15 tablet, 0 Refills, Maintenance, 03/17/22 12:20:00EDT, Tablet, [facility], Partial fill upon patient request if the prescription is for a schedule II opioid drug., 160, cm, 03/15/22 16:19:00 EDT,... Start Date: 03/17/22 Status: Orderedhaloperidol 10 mg oral tablet 15 mg, 1.5, tablet, By Mouth, 2 times a day, # 90 tablet, Refills 0, Tot. Refills 0, Maintenance, 03/17/22 12:23:00 EDT, Route to Pharmacy Electronically, [facility], Partial fill upon patient request if [...] 03/17/22 12:22:00 EDT, Route to Pharmacy Electronically, [facility], Partial fill upon patient request if [...] II opioid drug. Start Date: 03/17/22 Status: Orderedpropranolol 20 mg oral tablet 20 mg, 1, tablet, By Mouth, 2 times a day, # 60 tablet, Refills 0, Tot. Refills 0, Maintenance, 03/17/22 12:22:00 EDT, Route to Pharmacy Electronically, [facility], Partial fill upon patient request if [...] 03/17/22 12:25:00 EDT, Route to Pharmacy Electronically, [facility], Partial fill upon patient request if the prescription is for a schedule II op... Start Date: 03/17/22 Stop Date: 04/16/22 Status: OrderedZyPREXA 10 mg oral tablet 10 mg, 1, tablet, By Mouth, 2 times a day, # 60 tablet, Refills 0, Tot. Refills 0, Maintenance, 03/17/22 12:21:00 EDT, Route to Pharmacy Electronically, [facility], Partial fill upon patient request if [...] Active disorder)(Confirmed) Type 2 diabetes mellitus(Confirmed) Active Social History Social History Type Response Smoking Status Never (less than 100 in life time) entered on: 10/20/21 Sex Care Team PersonnelName: Geeta Blanca MD Address: [address] [place] [address]
--- OUTSIDE RECORDS SUMMARY | 2022-05-25 19:53 | XMS_ITS | Continuity of Care Document ---
:1995 Author Organization [facility] Address [address] [place] [address]- Care Team Providers Name Role Phone Not on Staff, PCP Primary Care Physician Unavailable Encounter [facility] Date(s): 11/05/21 - 11/09/[address] [id number]- Discharge Disposition: A-D/C Home Attending Physician: Brian Coughlin MD Admitting Physician: Vishnu Rao MD Referring Physician: Not on Staff, Referring MD Allergies, Adverse Reactions, Alerts Substance Reaction Severity Status shellfish Active Thorazine Active Depakote Risperidone adverse reaction Act anival Risperidone Risperidone Risperidone Risperidone Risperidone Risperidone Latex Active Tomatoes Active Lactose Active RisperDAL Active Medications [...] II opioid drug. Start Date: 11/05/21 Status: OrderedDilaudid Inj 0.5 mg, Injection, IV Push Slowly, Every 6 hours, Hold for: oversedation, PRN for Pain , Severe, Routine, 11/06/21 10:21:00 EDT Start Date: 11/06/21 Stop Date: 11/09/21 Status: Discontinuedferrous fumarate 325 mg oral tablet 1 tablet [...] a schedule II opioid drug. Start Date: 12/26/21 Status: OrderedOmeprazole = 20 mg, By Mouth, 2 times a day, 0 Refills, Maintenance, 11/05/21 20:16:00 EDT, Partial fill upon patient request if the prescription is for a schedule II opioid drug. Start Date: 11/05/21 Status: Orderedpropranolol 20 mg oral tablet 20 mg, Tablet, By Mouth, 11/09/21 9:00:00 EDT Start Date: 11/09/21 Stop Date: 11/09/21 Status: Completedpropranolol 20 mg oral tablet 20 mg, 1, tablet, By Mouth, 2 times a day, # 180 tablet, Refills 0, Maintenance, 11/05/21 20:15:00 EDT, Partial fill upon patient request if the prescription is for a schedule II opioid drug. Start Date: 11/05/21 Status: Orderedpropranolol 20 mg oral tablet 20 mg, Tablet, By Mouth, 11/08/21 21:00:00 EDT Start Date: 11/08/21 Stop Date: 11/08/21 Status: Completedsenna 17.2 mg oral tablet 1 tablet = [...] Status Health Status Informant Severe obesity(Confirmed) Active Procedures Procedure Date Related Diagnosis Body Site Status EGD with foreign body removal Completed Results Radiology Reports Exam Date Time Procedure Performing Provider Status 11/07/21 9:26 AM Abdomen AP Rhonda Elizabeth (Verifie d) Notes:(Abdomen AP) Reason For Exam: Foreign body localization/follow-up x- ray;Foreign BodyRESULT: XR Abdomen AP XR Abdomen AP 1 view INDICATION/CLINICAL QUESTION: Reason: Foreign Body; Foreign body localization follow-up x-ray; Clinical Question(s): Foreign Body COMPARISON: 11/06/2021 FINDINGS: Unchanged position of the metallic screw projecting over the mid abdomen. Metallic washer seen on prior study is no longer identified. No evidence of bowel obstruction. No evidence of pneumoperitoneum.No acute osseous abnormality. IMPRESSION: Unchanged position of the metallic screw. The washer is no longer seen. WSN: [id number] Ordering Physician: Brian Coughlin Dictated By: Jordan Pelayo MD Dictated Date/Time: 11/07/21 10:12 a Reviewed By: Jordan Pelayo MD Signed By: Jordan Pelayo MD Signed Date/Time: 11/07/21 10:12 am Transcribed By: LAINA Transcribed Date/Time: 11/07/21 10:10 am Exam Date Time Procedure Performing Provider Status 11/06/21 6:39 AM Abdomen AP Yajaira Coleman; Shakir (Verifi ed) Notes:(Abdomen AP) Reason For Exam: FB stomach;Other:RESULT: XR Abdomen AP XR Abdomen AP 2 views, supine and upright INDICATION/CLINICAL QUESTION: Reason: Other:; FB stomach; Clinical Question(s): Perforation; Order Comment: Upright COMPARISON: November 05 FINDINGS: 1.) 6.3 cm metallic screw is rotated roughly 90 degrees counterclockwise since prior study now pointing inferiorly towards the right. The main body of the screw overlies the left side of the L4 vertebral body. 2.) 2.2 cm diameter rounded metallic washer fixed slightly more to the right than on prior study andis now slightly obliqued 3.) Gas pattern unremarkable. No free air. Inferior aspect of lower pelvis beyond edge of film. IMPRESSION: Findings as above. WSN: [id number] Ordering Physician: Tatum Pierce Dictated By: Bob Bustillo MD Dictated Date/Time: 11/06/21 8:17 am Reviewed By: Bob Bustillo MD Signed By: Bob Bustillo MD Signed Date/Time: 11/06/21 8:17 am Transcribed By: LAINA Transcribed Date/Time: 11/06/21 8:09 am Exam Date Time Procedure Performing Provider Status 11/05/21 12:40 PM Abdomen AP Ashley Winn; Auth (Veri fied) Notes:(Abdomen AP) Reason For Exam: FB stomach;Other:RESULT: XR Abdomen AP XR Abdomen AP INDICATION/CLINICAL QUESTION: Hx of Present Illness: pt here as a transfer from [place] under [facility] [employer] for swallowing a screw; Reason: FB stomach; Clinical Question(s): Perforation. COMPARISON: CT abdomen pelvis dated November 05, 2021. FINDINGS: 6.3 centimeter screw seen overlying the L4-L5 junction. Metallic washer measuring 2.2 cm in diameterprojects over the sacrum. No meseret pneumoperitoneum on this single frontal view, which was performedwith upright technique but excludes the hemidiaphragms from the [id number]. IMPRESSION: 1. Interval antegrade transit of the metallic screw, located either in the mid to distal small bowelor mid transverse colon. 2. Similar position of the metallic washer within the sigmoid colon. 3. Limited evaluation for pneumoperitoneum with exclusion of the hemidiaphragms from the [id number]. No gross free air. Consider left lateral decubitus views if there is concern for acute perforation as these are more sensitive for the detection of small volume pneumoperitoneum. I have personally reviewed the images and I agree with this report. WSN: [id number] Ordering Physician: Gladys Wiggins Dictated By: Virgilio Franklin DO Dictated Date/Time: 11/05/21 1:32 pm Reviewed By: Hector Kaiser MD Signed By: Hector Kaiser MD Signed Date/Time: 11/05/21 1:37 pm Transcribed By: LAINA Transcribed Date/Time: 11/05/21 1:16 pm Vital Signs Most recent to oldest 1 2 3 [Reference Range]: Height 151 cm 151 cm 151 cm (11/09/21 6:29 AM) (11/09/21 6:14 AM) (11/08/21 8:0 0 PM) Weight 104.5 kg 104.5 kg (11/08/21 11:26 AM) (11/05/21 5:22 PM) Oxygen Saturation [94-100 %] 97 % 95 % 93 % (11/09/21 6:14 AM) (11/08/21 8:00 PM) *L* (11/08/21 2:00 PM ) Pulse Rate [55-90 bpm] 85 bpm 74 bpm 104 bpm (11/09/21 9:06 AM) (11/09/21 6:14 AM) *H* (11/08/21 8:54 PM ) Body Mass Index [18.5-24.99] 45.83 45.83 *>HHI* *>HHI* (11/08/21 11:26 AM) (11/05/21 5:22 PM) Blood Pressure [90-138/55-84 132/69 mm Hg 121/57 mm Hg 95/ 56 mm Hg mm Hg] (11/09/21 9:06 AM) (11/09/21 6:29 AM) (11/09/21 6:1 4 AM) Respiratory Rate [16-30 18 br/min 18 br/min 18 br/mi n br/min] (11/09/21 6:14 AM) (11/08/21 8:15 PM) (11/08/21 8:0 0 PM) Temperature [96.8-100.4 DegF] 98.4 DegF 98.4 DegF 97 .7 DegF (11/09/21 6:14 AM) (11/08/21 8:00 PM) (11/08/21 2:0 0 PM) Liters per Minute 6 L/min (11/08/21 12:45 PM) Mode of Delivery (Oxygen) Room air Room air Room a ir (11/09/21 6:14 AM) (11/08/21 8:00 PM) (11/08/21 2:0 0 PM) Blood pressure sites Leg, right Arm, right Arm, right (11/09/21 6:29 AM) (11/09/21 6:14 AM) (11/08/21 8:0 0 PM) Temperature Route Oral Oral Oral (11/09/21 6:14 AM) (11/08/21 8:00 PM) (11/08/21 2:0 0 PM) Dry Weight 104.5 kg (11/05/21 5:22 PM) Social History Social History Type Response Smoking Status Never (less than 100 in life time) entered on: 10/20/21 Sex
--- OUTSIDE RECORDS SUMMARY | 2022-05-25 19:53 | XMS_ITS | Continuity of Care Document ---
:1995 Author Organization [facility] Address [address] [place] [address]- Care Team Providers Name Role Phone Geeta Blanca MD Primary Care Physician Encounter [facility] Date(s): 04/21/22 - 04/22/[address] [address]- Encounter Diagnosis Ingestion of foreign body (Final) - 04/21/22 Discharge Disposition: Transferred to short-term general hospit Attending Physician: Silas Willis DO Admitting Physician: Silas Willis DO Referring Physician: Not on Staff, Referring MD [...] 03/17/22 12:20:00 EDT, Route to Pharmacy Electronically, [facility], Partial fill upon patient request if the prescription is for a schedule II opioid... Start Date: 03/17/22 Stop Date: 04/16/22 Status: Orderedferrous fumarate 325 mg oral tablet 1 tablet = 325 mg, By Mouth, Every other day, # 15 tablet, 0 Refills, Maintenance, 03/17/22 12:20:00EDT, Tablet, [facility], Partial fill upon patient request if the prescription is for a schedule II opioid drug., 160, cm, 03/15/22 16:19:00 EDT,... Start Date: 03/17/22 Status: Orderedhaloperidol 10 mg oral tablet 15 mg, 1.5, tablet, By Mouth, 2 times a day, # 90 tablet, Refills 0, Tot. Refills 0, Maintenance, 03/17/22 12:23:00 EDT, Route to Pharmacy Electronically, [facility], Partial fill upon patient request if the prescription is for a schedule II opio... Start Date: 03/17/22 Stop Date: 04/16/22 Status: OrderedMetformin = 1,000 mg, By Mouth, 2 times a day, 0 Refills, Maintenance, 04/21/22 22:21:00 EDT, Partial fill upon patient request if the prescription is for a schedule II opioid drug. Start Date: 04/21/22 Status: OrderedMorPHINE Inj 4 mg, Injection, IV Push Slowly, Every 5 minutes for 3 doses/times, PRN for Pain , Moderate, and SBPgreater than 100, Routine, 04/22/22 13:35:00 EDT, Stop date Limited # of times Start Date: 04/22/22 Stop Date: 04/22/22 Status: DiscontinuedNeurontin 100 mg oral capsule 100 mg, 1, capsule, By Mouth, 3 times a day, # 90 capsule, Refills 0, Tot. Refills 0, Maintenance, 03/17/22 12:22:00 EDT, Route to Pharmacy Electronically, [facility], Partial fill upon patient request if [...] 03/17/22 12:22:00 EDT, Route to Pharmacy Electronically, [facility], Partial fill upon patient request if [...] 03/17/22 12:25:00 EDT, Route to Pharmacy Electronically, [facility], Partial fill upon patient request if the prescription is for a schedule II op... Start Date: 03/17/22 Stop Date: 04/16/22 Status: OrderedZyPREXA 10 mg oral tablet 10 mg, 1, tablet, By Mouth, 2 times a day, # 60 tablet, Refills 0, Tot. Refills 0, Maintenance, 03/17/22 12:21:00 EDT, Route to Pharmacy Electronically, [facility], Partial fill upon patient request if [...] Exam Date Time Procedure Performing Provider Status 04/22/22 8:02 AM Abdomen AP Sonia Curry; Shakir jessica) Notes:(Abdomen AP) Reason For Exam: DistentionRESULT: XR Abdomen AP XR Abdomen AP TECHNIQUE: Supine view of the abdomen and pelvis, 2 total images. Hx of Present Illness: Pt DUANE casillas p arguement with stafff at long term. She state sshe swallowed a carabinger clip that was connected to hand reprint sorter bottle. Also reports swallowing a screw 2 days ago. Endorsing SI HI upon arrival.; Reason: Distention; Clinical Question(s): Obstruction; Free Air; Spe cial Instructions: Upright. COMPARISON: 04/21/2022. FINDINGS: Lines and tubes: None. Gas pattern: Normal bowel gas pattern. No evidence of obstruction. Free air: No evidence of pneumoperitoneum. Soft tissue: Redemonstration of a circular radiopaque foreign body in the epigastrium projecting over the left side of the T12 vertebral body, compatible with a carabiner clip as given above. Stable appearance of a screw-shaped opaque foreign body in the right lower quadrant. Bones: No acute abnormality. Visualized lung bases: Clear. No appreciable consolidation or pleural effusion. IMPRESSION: Stable radiopaque foreign bodies as described. WSN: [id number] Ordering Physician: Kar Moe Dictated By: Sid Guzman MD Dictated Date/Time: 04/22/22 8:31 am Reviewed By: Sid Guzman MD Signed By: Sid Guzman MD Signed Date/Time: 04/22/22 8:31 am Transcribed By: LAINA Transcribed Date/Time: 04/22/22 8:25 am Exam Date Time Procedure Performing Provider Status 04/21/22 11:06 PM Abdomen AP [place] , Mari T; Shakir ([place] jessica) Notes:(Abdomen AP) Reason For Exam: DistentionRESULT: XR Abdomen AP Chest 2 Views Frontal and Lat, XR Abdomen AP Hx of Present Illness: Pt BIBA s p argument with staff at long term. She state she swallowed a carabiner clip that was connected to hand reprint sorter bottle. Also reports swallowing a screw 2 days ago. Endorsing SI HI upon arrival.; Reason: Foreign Body; Clinical Question(s): Foreign Body COMPARISON: None. FINDINGS: LINES AND TUBES: None. LUNGS AND PLEURA: Clear lungs. Normal pulmonary vascularity. No pleural effusion. No pneumothorax. HEART, MEDIASTINUM AND TAMAR: Heart is normal in size. Normal upper mediastinal and hilar contour. BONES AND SOFT TISSUES: No acute abnormality. Circular dense foreign body projected over the left upper quadrant. Abdominal radiographs: Saccular radiopaque foreign body projected over the left upper quadrant medially. Screw-shaped foreign body projected over the left lower quadrant. No evidence of bowel obstruction. No definite evidence of free air. IMPRESSION: Foreign body projected over the left upper quadrant. Suspected additional foreign body projected over the left lower quadrant. A critical result message ([place]) has been communicated via the [employer] system on 04/21/2022 11:10 PM, Message ID [id number]. A critical result message ([place]) has been communicated via the [employer] system on 04/21/2022 11:11 PM, Message ID [id number]. WSN: [id number] Ordering Physician: Silas Willis Dictated By: Epifanio Maher MD Dictated Date/Time: 04/21/22 11:11 p Reviewed By: Epifanio Maher MD Signed By: Epifanio Maher MD Signed Date/Time: 04/21/22 11:11 pm Transcribed By: LAINA Transcribed Date/Time: 04/21/22 11:07 pm Exam Date Time Procedure Performing Provider Status 04/21/22 11:06 PM Chest 2 Views Frontal and Lat [place] Mari T; Auth (Verified) Notes:(Chest 2 Views Frontal and Lat) Reason For Exam: Foreign BodyRESULT: Chest 2 Views Frontal and Lat Chest 2 Views Frontal and Lat, XR Abdomen AP Hx of Present Illness: Pt DUANE s p argument with staff at long term. She state she swallowed a carabiner clip that was connected to hand reprint sorter bottle. Also reports swallowing a screw 2 days ago. Endorsing SI HI upon arrival.; Reason: Foreign Body; Clinical Question(s): Foreign Body COMPARISON: None. FINDINGS: LINES AND TUBES: None. LUNGS AND PLEURA: Clear lungs. Normal pulmonary vascularity. No pleural effusion. No pneumothorax. HEART, MEDIASTINUM AND TAMAR: Heart is normal in size. Normal upper mediastinal and hilar contour. BONES AND SOFT TISSUES: No acute abnormality. Circular dense foreign body projected over the left upper quadrant. Abdominal radiographs: Saccular radiopaque foreign body projected over the left upper quadrant medially. Screw-shaped foreign body projected over the left lower quadrant. No evidence of bowel obstruction. No definite evidence of free air. IMPRESSION: Foreign body projected over the left upper quadrant. Suspected additional foreign body projected over the left lower quadrant. A critical result message ([place]) has been communicated via the [employer] system on 04/21/2022 11:10 PM, Message ID [id number]. A critical result message ([place]) has been communicated via the [employer] system on 04/21/2022 11:11 PM, Message ID [id number]. WSN: [id number] Ordering Physician: Silas Willis Dictated By: Epifanio Maher MD Dictated Date/Time: 04/21/22 11:11 p Reviewed By: Epifanio Maher MD Signed By: Epifanio Maher MD Signed Date/Time: 04/21/22 11:11 pm Transcribed By: LAINA Transcribed Date/Time: 04/21/22 11:07 pm Vital Signs Most recent to oldest 1 2 3 [Reference Range]: Height 163 cm 163 cm 163 cm (04/22/22 2:31 AM) (04/22/22 2:04 AM) (04/21/22 10:17 PM) Weight 100 kg 100 kg (04/22/22 2:04 AM) (04/21/22 10:17 PM) Oxygen Saturation [94-100 97 % 95 % 96 % %] (04/22/22 11:14 AM) (04/22/22 7:41 AM) (04/22/22 2:04 AM) Pulse Rate [55-90 bpm] 82 bpm 84 bpm 71 bpm (04/22/22 11:14 AM) (04/22/22 7:41 AM) (04/22/22 2:04 AM) Body Mass Index 37.64 [18.5-24.99] *>HHI* (04/22/22 2:04 AM) Blood Pressure 111/66 mm Hg 101/60 mm Hg 109/67 mm Hg [90-138/55-84 mm Hg] (04/22/22 11:14 AM) (04/22/22 7:41 AM) (04/22/22 2:04 AM) Respiratory Rate [16-30 18 br/min 16 br/min 16 br/mi n br/min] (04/22/22 1:19 PM) (04/22/22 11:14 AM) (04/22/22 7:41 AM) Temperature [96.8-100.4 96.8 DegF 98.1 DegF DegF] (04/22/22 2:04 AM) (04/21/22 10:13 PM) Mode of Delivery (Oxygen) Room air Room air Room a ir (04/22/22 11:14 AM) (04/22/22 7:41 AM) (04/22/22 2:31 AM) Blood pressure sites Arm, right Arm, right Arm, right (04/22/22 11:14 AM) (04/22/22 7:41 AM) (04/22/22 2:04 AM) Temperature Route Temporal Oral (04/22/22 2:04 AM) (04/21/22 10:13 PM) Dry Weight 100 kg 100 kg (04/22/22 2:04 AM) (04/21/22 10:17 PM) Weight Obtained Via Patient/family stated (04/21/22 10:17 PM) Dry Weight Obtained Via Patient/family stated (04/21/22 10:17 PM) Social History Social History Type Response Smoking Status Never (less than 100 in life time) entered on: 10/20/21 Sex XR Abdomen AP [facility] , CIS S: TRANSCRIBE Sid Guzman MD: VERIFY Event Display: Result: Authored Date: [id number] XR Abdomen AP TECHNIQUE: Supine view of the abdomen and pelvis, 2 total images. Hx of Present Illness: Pt DUANE [place] p arguement with stafff at long term. She state sshe swallowed a carabinger clip that was connected to hand reprint sorter bottle. Also reports swallowing a screw 2 days ago. Endorsing SI HI upon arrival.; Reason: Distention; Clinical Question(s): Obstruction; Free Air; Spe cial Instructions: Upright. COMPARISON: 04/21/2022. FINDINGS: Lines and tubes: None. Gas pattern: Normal bowel gas pattern. No evidence of obstruction. Free air: No evidence of pneumoperitoneum. Soft tissue: Redemonstration of a circular radiopaque foreign body in the epigastrium projecting over the left side of the T12 vertebral body, compatible with a carabiner clip as given above. Stable appearance of a screw-shaped opaque foreign body in the right lower quadrant. Bones: No acute abnormality. Visualized lung bases: Clear. No appreciable consolidation or pleural effusion. IMPRESSION: Stable radiopaque foreign bodies as described. WSN: [id number] Ordering Physician: Kar Moe Dictated By: Sid Guzman MD Dictated Date/Time: 04/22/22 8:31 am Reviewed By: Sid Guzman MD Signed By: Sid Guzman MD Signed Date/Time: 04/22/22 8:31 am Transcribed By: LAINA Transcribed Date/Time: 04/22/22 8:25 amBPowerscribe , CIS S: TRANSCRIBE Epifanio Maher MD: VERIFY Event Display: Result: Authored Date: [id number] Chest 2 Views Frontal and Lat, XR Abdomen AP Hx of Present Illness: Pt BIBA s p argument with staff at long term. She state she swallowed a carabiner clip that was connected to hand reprint sorter bottle. Also reports swallowing a screw 2 days ago. Endorsing SI HI upon arrival.; Reason: Foreign Body; Clinical Question(s): Foreign Body COMPARISON: None. FINDINGS: LINES AND TUBES: None. LUNGS AND PLEURA: Clear lungs. Normal pulmonary vascularity. No pleural effusion. No pneumothorax. HEART, MEDIASTINUM AND TAMAR: Heart is normal in size. Normal upper mediastinal and hilar contour. BONES AND SOFT TISSUES: No acute abnormality. Circular dense foreign body projected over the left upper quadrant. Abdominal radiographs: Saccular radiopaque foreign body projected over the left upper quadrant medially. Screw-shaped foreign body projected over the left lower quadrant. No evidence of bowel obstruction. No definite evidence of free air. IMPRESSION: Foreign body projected over the left upper quadrant. Suspected additional foreign body projected over the left lower quadrant. A critical result message ([place]) has been communicated via the [employer] system on 04/21/2022 11:10 PM, Message ID [id number]. A critical result message ([place]) has been communicated via the [employer] system on 04/21/2022 11:11 PM, Message ID [id number]. WSN: [id number] Ordering Physician: Silas Willis Dictated By: Epifanio Maher MD Dictated Date/Time: 04/21/22 11:11 p Reviewed By: Epifanio Maher MD Signed By: Epifanio Maher MD Signed Date/Time: 04/21/22 11:11 pm Transcribed By: LAINA Transcribed Date/Time: 04/21/22 11:07 pm Note [facility] , CIS S: TRANSCRIEpifanio Galarza MD: VERIFY Event Display: Result: Authored Date: [id number] Chest 2 Views Frontal and Lat, XR Abdomen AP Hx of Present Illness: Pt BIBA s p argument with staff at long term. She state she swallowed a carabiner clip that was connected to hand reprint sorter bottle. Also reports swallowing a screw 2 days ago. Endorsing SI HI upon arrival.; Reason: Foreign Body; Clinical Question(s): Foreign Body COMPARISON: None. FINDINGS: LINES AND TUBES: None. LUNGS AND PLEURA: Clear lungs. Normal pulmonary vascularity. No pleural effusion. No pneumothorax. HEART, MEDIASTINUM AND TAMAR: Heart is normal in size. Normal upper mediastinal and hilar contour. BONES AND SOFT TISSUES: No acute abnormality. Circular dense foreign body projected over the left upper quadrant. Abdominal radiographs: Saccular radiopaque foreign body projected over the left upper quadrant medially. Screw-shaped foreign body projected over the left lower quadrant. No evidence of bowel obstruction. No definite evidence of free air. IMPRESSION: Foreign body projected over the left upper quadrant. Suspected additional foreign body projected over the left lower quadrant. A critical result message ([place]) has been communicated via the [employer] system on 04/21/2022 11:10 PM, Message ID [id number]. A critical result message ([place]) has been communicated via the [employer] system on 04/21/2022 11:11 PM, Message ID [id number]. WSN: [id number] Ordering Physician: Silas Willis Dictated By: Epifanio Maher MD Dictated Date/Time: 04/21/22 11:11 p Reviewed By: Epifanio Maher MD Signed By: Epifanio Maher MD Signed Date/Time: 04/21/22 11:11 pm Transcribed By: LAINA Transcribed Date/Time: 04/21/22 11:07 pm Care Team PersonnelName: Geeta Blanca MD Address: [address] [place] [address]
--- OUTSIDE RECORDS SUMMARY | 2022-05-25 19:53 | XMS_ITS | Continuity of Care Document ---
:1995 Author Organization [facility] Address [address] [place] [id number]- Care Team Providers Name Role Phone Geeta Blanca MD Primary Care Physician [place] [facility] [place] - 04/28/[address] [id number] [place] Discharge Disposition: A-D/C Home Attending Physician: Modesto Owens MD Admitting Physician: May Salguero MD Referring Physician: Not on Staff, Referring [...] 03/17/22 12:20:00 EDT, Route to Pharmacy Electronically, [facility], Partial fill upon patient request if [...] tablet, 0 Refills, Maintenance, 03/17/22 12:20:00EDT, Tablet, [facility], Partial fill upon patient request if the prescription is for a schedule II opioid drug., 160, cm, 03/15/22 16:19:00 EDT,... Start Date: 03/17/22 Status: Orderedgabapentin 100 mg oral capsule 100 mg, Capsule, By Mouth, 04/28/22 15:00:00 EDT Start Date: 04/28/22 Stop Date: 04/28/22 Status: Completedhaloperidol 10 mg oral tablet 15 mg, 1.5, tablet, By Mouth, 2 times a day, # 90 tablet, Refills 0, Tot. Refills 0, Maintenance, 03/17/22 12:23:00 EDT, Route to Pharmacy Electronically, [facility], Partial fill upon patient request if [...] 03/17/22 12:22:00 EDT, Route to Pharmacy Electronically, [facility], Partial fill upon patient request if [...] II opioid drug. Start Date: 04/28/22 Status: OrderedoxyCODONE 5 mg oral tablet 5 mg, 1, tablet, By Mouth, 3 times a day, PRN, # 10 tablet, Refills 0, Tot. Refills 0, Acute 04/30/22 12:08:00 EDT, as needed for pain, 04/28/22 12:08:00 EDT, Do Not Route, Partial fill upon patient request if the prescription is for a schedule II opi... Start Date: 04/28/22 Stop Date: 04/30/22 Status: Orderedpropranolol 20 mg oral tablet 20 mg, 1, tablet, By Mouth, 2 times a day, # 60 tablet, Refills 0, Tot. Refills 0, Maintenance, 03/17/22 12:22:00 EDT, Route to Pharmacy Electronically, [facility], Partial fill upon patient request if [...] 03/17/22 12:25:00 EDT, Route to Pharmacy Electronically, [facility], Partial fill upon patient request if [...] 03/17/22 12:21:00 EDT, Route to Pharmacy Electronically, [facility], Partial fill upon patient request if [...] Active disorder)(Confirmed) Type 2 diabetes mellitus(Confirmed) Active Procedures Procedure Date Related Diagnosis Body Site Status EGD - Esophagogastroduodenoscopy Completed Results Radiology Reports Exam Date Time Procedure Performing Provider Status 04/27/22 9:37 AM Abdomen AP Feli Hathaway; Shakir (Hiren ified) Notes:(Abdomen AP) Reason For Exam: Foreign BodyRESULT: XR Abdomen AP XR Abdomen AP 1 view INDICATION/CLINICAL QUESTION: Reason: Foreign Body; Clinical Question(s): Foreign Body COMPARISON: 04/26/2022 FINDINGS: Tack projecting in the right lower quadrant is unchanged. Carabiner is no longer present. Normal bowel gas pattern. No evidence of obstruction. No evidence of pneumoperitoneum. No organomegaly, masses or calcifications. No acute bone findings. IMPRESSION: Tack projects in the right lower quadrant, not significantly changed in position. The carabiner is no longer seen. No evidence of bowel obstruction. No pneumoperitoneum identified. WSN: [id number] Ordering Physician: Miguel Victor Dictated By: Jordan Pelayo MD Dictated Date/Time: 04/27/22 10:00 a Reviewed By: Jordan Pelayo MD Signed By: Jordan Pelayo MD Signed Date/Time: 04/27/22 10:00 am Transcribed By: LAINA Transcribed Date/Time: 04/27/22 9:58 am Exam Date Time Procedure Performing Provider Status 04/26/22 10:55 AM Abdomen AP Nneka Child; Auth (V erified) Notes:(Abdomen AP) Reason For Exam: Foreign BodyRESULT: XR Abdomen AP XR Abdomen AP 1 view INDICATION/CLINICAL QUESTION: Reason: Foreign Body; Clinical Question(s): Foreign Body COMPARISON: None FINDINGS: Normal bowel gas pattern. No evidence of obstruction. No evidence of pneumoperitoneum. No organomegaly, masses or calcifications. Rounded foreign body measuring 1.0 cm, possibly a tack projects over the right lower quadrant/cecum, unchanged in position. Carabiner has moved distally and is now within the rectum. No acute bone findings. IMPRESSION: 1. Carabiner been has moved distally and is now within the rectum. 2. Rounded foreign body in the the right lower quadrant/cecum, possibly a tack, unchanged in position. WSN: [id number] Ordering Physician: Miguel Victor Dictated By: aDniel Hill MD Dictated Date/Time: 04/26/22 1:55 pm Reviewed By: Daniel Hill MD Signed By: Daniel Hill MD Signed Date/Time: 04/26/22 1:55 pm Transcribed By: LAINA Transcribed Date/Time: 04/26/22 1:52 pm Exam Date Time Procedure Performing Provider Status 04/25/22 9:07 AM Abdomen AP Archambeau, Marielos; Auth (Verifie d) Notes:(Abdomen AP) Reason For Exam: Foreign BodyRESULT: XR Abdomen AP XR Abdomen AP 1 view INDICATION/CLINICAL QUESTION: Reason: Foreign Body; Clinical Question(s): Foreign Body COMPARISON: 04/24/2022 FINDINGS: Suboptimal exam due to underpenetration from body habitus. Normal bowel gas pattern. Moderate stool in the transverse colon. Ringlike metallic density measuring 3 cm in length representing a carabiner clip is appreciated within the left hemiabdomen projecting over the proximal descending colon, previously in the ascending colon on 04/24/2022. No evidence of pneumoperitoneum. No organomegaly, masses or calcifications. No acute bone findings. IMPRESSION: Ringlike metallic density measuring 3 cm in length representing a carabiner clip is appreciated within the left hemiabdomen projecting over the proximal descending colon, previously in the ascending colon on 04/24/2022. WSN: [id number] Ordering Physician: Miguel Victor Dictated By: Jordan Vo MD Dictated Date/Time: 04/25/22 5:42 pm Reviewed By: Jordan Vo MD Signed By: Jordan Vo MD Signed Date/Time: 04/25/22 5:42 pm Transcribed By: LAINA Transcribed Date/Time: 04/25/22 5:40 pm Exam Date Time Procedure Performing Provider Status 04/24/22 9:09 AM Abdomen AP Killian , Vannesa; Auth (Verified ) Notes:(Abdomen AP) Reason For Exam: Foreign Body;Foreign BodyRESULT: XR Abdomen AP XR Abdomen AP 1 view performed supine INDICATION/CLINICAL QUESTION: Foreign Body; Clinical Question(s): Foreign Body COMPARISON: Multiple prior abdominal radiographs, the most recent of which is dated 04/23/2022 FINDINGS: Nonspecific bowel gas pattern within the right mid abdomen, there is again noted to be a foreign body with the appearance of the tack and the second partially metallic ringlike foreign body suggestive of a hair tie. No evidence of pneumoperitoneum on this supine radiograph. No acute bone findings. Lung bases appear clear. IMPRESSION: 2 foreign bodies seen in the right mid abdomen. Nonspecific bowel gas pattern. WSN: [id number] Ordering Physician: Miguel Victor Dictated By: Nunu Pérez MD Dictated Date/Time: 04/24/22 2:45 pm Reviewed By: Nunu Pérez MD Signed By: Nunu Pérez MD Signed Date/Time: 04/24/22 2:45 pm Transcribed By: LAINA Transcribed Date/Time: 04/24/22 2:43 pm Exam Date Time Procedure Performing Provider Status 04/23/22 10:22 AM Abdomen AP Queta Hill; Shakir (Verified ) Notes:(Abdomen AP) Reason For Exam: Foreign BodyRESULT: XR Abdomen AP XR Abdomen AP 1 view INDICATION/CLINICAL QUESTION: Foreign Body; Clinical Question(s): Foreign Body COMPARISON: None FINDINGS: Metallic screw/tack overlies the right mid abdomen. The circular foreign body reminiscent of a hair elastic has moved to the right lower quadrant. Nonobstructive bowel gas pattern. No evidence of pneumoperitoneum. No organomegaly, masses or calcifications. No acute bone findings. IMPRESSION: Antegrade progression of foreign bodies as above. WSN: [id number] Ordering Physician: Miguel Victor Dictated By: Cesar Angeles MD Dictated Date/Time: 04/23/22 10:39 a Reviewed By: Cesar Angeles MD Signed By: Cesar Angeles MD Signed Date/Time: 04/23/22 10:39 am Transcribed By: LAINA Transcribed Date/Time: 04/23/22 10:34 am Vital Signs Most recent to oldest [Reference 1 2 3 Range]: Height 163 cm 163 cm 163 cm (04/28/22 1:00 PM) (04/28/22 12:56 PM) (04/28/22 10:58 AM) Weight 100 kg 100 kg 100 kg (04/28/22 8:48 AM) (04/22/22 2:58 PM) (04/22/22 2:18 P M) Oxygen Saturation [94-100 %] 93 % 99 % 100 % *L* (04/28/22 12:56 PM) (04/28/22 10:58 AM) (04/28/22 1:00 PM) Pulse Rate [55-90 bpm] 86 bpm 101 bpm 77 bpm (04/28/22 1:00 PM) *H* (04/28/22 10:58 A M) (04/28/22 12:56 PM) Body Mass Index [18.5-24.99] 37.64 37.64 37. 64 *>HHI* *>HHI* *>HHI* (04/28/22 8:48 AM) (04/22/22 2:58 PM) (04/22/22 2:18 P M) Blood Pressure [90-138/55-84 mm 123/66 mm Hg 110/68 mm Hg 146/97 mm Hg Hg] (04/28/22 1:00 PM) (04/28/22 12:56 PM) *H* (04/28/22 10:58 AM ) Respiratory Rate [16-30 br/min] 18 br/min 18 br/min 20 br/min (04/28/22 4:00 PM) (04/28/22 1:00 PM) (04/28/22 12:56 PM) Temperature [96.8-100.4 DegF] 98.1 DegF 97.7 DegF 97 .4 DegF (04/28/22 1:00 PM) (04/28/22 12:56 PM) (04/28/22 10:58 AM) Liters per Minute 4 L/min (04/28/22 9:38 AM) Mode of Delivery (Oxygen) Room air Room air Room a ir (04/28/22 1:00 PM) (04/28/22 12:56 PM) (04/28/22 10:58 AM) Blood pressure sites Arm, right Arm, left Arm, right (04/28/22 1:00 PM) (04/28/22 12:56 PM) (04/28/22 10:58 AM) Temperature Route Oral Oral Oral (04/28/22 1:00 PM) (04/28/22 12:56 PM) (04/28/22 10:58 AM) Dry Weight 100 kg (04/22/22 2:18 PM) Social History Social History Type Response Smoking Status Never (less than 100 in life time) entered on: 10/20/21 Sex XR Abdomen AP [facility] , CIS S: TRANSCRIBE Jordan Pelayo MD: VERIFY Event Display: Result: Authored Date: [id number] XR Abdomen AP 1 view INDICATION/CLINICAL QUESTION: Reason: Foreign Body; Clinical Question(s): Foreign Body COMPARISON: 04/26/2022 FINDINGS: Tack projecting in the right lower quadrant is unchanged. Carabiner is no longer present. Normal bowel gas pattern. No evidence of obstruction. No evidence of pneumoperitoneum. No organomegaly, masses or calcifications. No acute bone findings. IMPRESSION: Tack projects in the right lower quadrant, not significantly changed in position. The carabiner is no longer seen. No evidence of bowel obstruction. No pneumoperitoneum identified. WSN: [id number] Ordering Physician: Miguel Victor Dictated By: Jordan Pelayo MD Dictated Date/Time: 04/27/22 10:00 a Reviewed By: Jordan Pelayo MD Signed By: Jordan Pelayo MD Signed Date/Time: 04/27/22 10:00 am Transcribed By: LAINA Transcribed Date/Time: 04/27/22 9:58 [facility] , CIS S: TRANSCRIDaniel Fletcher MD: VERIFY Event Display: Result: Authored Date: [id number] XR Abdomen AP 1 view INDICATION/CLINICAL QUESTION: Reason: Foreign Body; Clinical Question(s): Foreign Body COMPARISON: None FINDINGS: Normal bowel gas pattern. No evidence of obstruction. No evidence of pneumoperitoneum. No organomegaly, masses or calcifications. Rounded foreign body measuring 1.0 cm, possibly a tack projects over the right lower quadrant/cecum, unchanged in position. Carabiner has moved distally and is now within the rectum. No acute bone findings. IMPRESSION: 1. Carabiner been has moved distally and is now within the rectum. 2. Rounded foreign body in the the right lower quadrant/cecum, possibly a tack, unchanged in position. WSN: [id number] Ordering Physician: Miguel Victor Dictated By: Daniel Hill MD Dictated Date/Time: 04/26/22 1:55 pm Reviewed By: Daniel Hill MD Signed By: Daniel Hill MD Signed Date/Time: 04/26/22 1:55 pm Transcribed By: LAINA Transcribed Date/Time: 04/26/22 1:52 pmSPPADMINI padgett S: Jordan Carlson MD: VERIFY Event Display: Result: Authored Date: [id number] XR Abdomen AP 1 view INDICATION/CLINICAL QUESTION: Reason: Foreign Body; Clinical Question(s): Foreign Body COMPARISON: 04/24/2022 FINDINGS: Suboptimal exam due to underpenetration from body habitus. Normal bowel gas pattern. Moderate stool in the transverse colon. Ringlike metallic density measuring 3 cm in length representing a carabiner clip is appreciated within the left hemiabdomen projecting over the proximal descending colon, previously in the ascending colon on 04/24/2022. No evidence of pneumoperitoneum. No organomegaly, masses or calcifications. No acute bone findings. IMPRESSION: Ringlike metallic density measuring 3 cm in length representing a carabiner clip is appreciated within the left hemiabdomen projecting over the proximal descending colon, previously in the ascending colon on 04/24/2022. WSN: [id number] Ordering Physician: Miguel Victor Dictated By: Jordan Vo MD Dictated Date/Time: 04/25/22 5:42 pm Reviewed By: Jordan Vo MD Signed By: Jordan Vo MD Signed Date/Time: 04/25/22 5:42 pm Transcribed By: LAINA Transcribed Date/Time: 04/25/22 5:40 pmSPPADMINI padgett S: Nunu Kohli MD: VERIFY Event Display: Result: Authored Date: [id number] XR Abdomen AP 1 view performed supine INDICATION/CLINICAL QUESTION: Foreign Body; Clinical Question(s): Foreign Body COMPARISON: Multiple prior abdominal radiographs, the most recent of which is dated 04/23/2022 FINDINGS: Nonspecific bowel gas pattern within the right mid abdomen, there is again noted to be a foreign body with the appearance of the tack and the second partially metallic ringlike foreign body suggestive of a hair tie. No evidence of pneumoperitoneum on this supine radiograph. No acute bone findings. Lung bases appear clear. IMPRESSION: 2 foreign bodies seen in the right mid abdomen. Nonspecific bowel gas pattern. WSN: [id number] Ordering Physician: Miguel Victor Dictated By: Nunu Pérez MD Dictated Date/Time: 04/24/22 2:45 pm Reviewed By: Nunu Pérez MD Signed By: Nunu Pérez MD Signed Date/Time: 04/24/22 2:45 pm Transcribed By: LAINA Transcribed Date/Time: 04/24/22 2:43 pm[facility]SP[facility] , CIS S: TRANSCRIBE Cesar Angeles MD: VERIFY Event Display: Result: Authored Date: [id number] XR Abdomen AP 1 view INDICATION/CLINICAL QUESTION: Foreign Body; Clinical Question(s): Foreign Body COMPARISON: None FINDINGS: Metallic screw/tack overlies the right mid abdomen. The circular foreign body reminiscent of a hair elastic has moved to the right lower quadrant. Nonobstructive bowel gas pattern. No evidence of pneumoperitoneum. No organomegaly, masses or calcifications. No acute bone findings. IMPRESSION: Antegrade progression of foreign bodies as above. WSN: [id number] Ordering Physician: Miguel Victor Dictated By: Cesar Angeles MD Dictated Date/Time: 04/23/22 10:39 a Reviewed By: Cesar Angeles MD Signed By: Cesar Angeles MD Signed Date/Time: 04/23/22 10:39 am Transcribed By: LAINA Transcribed Date/Time: 04/23/22 10:34 am Care Team PersonnelName: Geeta Blanca MD Address: [address] [place] [address]
--- OUTSIDE RECORDS SUMMARY | 2022-05-25 19:53 | XMS_ITS | Continuity of Care Document ---
:1995 Author Organization [facility] Address [address] [place] [address] Drive [address] [place] [address]- Care Team Providers Name Role Phone Geeta Blanca MD Primary Care Physician Encounter [facility] [place] Date(s): 03/10/22 - 04/23/[address] [place] [id number] Attending Physician: Gerard Spaulding MD Allergies, Adverse Reactions, Alerts Substance Reaction [...] 03/17/22 12:20:00 EDT, Route to Pharmacy Electronically, [facility], Partial fill upon patient request if the prescription is for a schedule II opioid... Start Date: 03/17/22 Stop Date: 04/16/22 Status: Orderedferrous fumarate 325 mg oral tablet 1 tablet = 325 mg, By Mouth, Every other day, # 15 tablet, 0 Refills, Maintenance, 03/17/22 12:20:00EDT, Tablet, [facility], Partial fill upon patient request if the prescription is for a schedule II opioid drug., 160, cm, 03/15/22 16:19:00 EDT,... Start Date: 03/17/22 Status: Orderedhaloperidol 10 mg oral tablet 15 mg, 1.5, tablet, By Mouth, 2 times a day, # 90 tablet, Refills 0, Tot. Refills 0, Maintenance, 03/17/22 12:23:00 EDT, Route to Pharmacy Electronically, [facility], Partial fill upon patient request if [...] 03/17/22 12:22:00 EDT, Route to Pharmacy Electronically, [facility], Partial fill upon patient request if [...] 03/17/22 12:22:00 EDT, Route to Pharmacy Electronically, [facility], Partial fill upon patient request if [...] 03/17/22 12:25:00 EDT, Route to Pharmacy Electronically, [facility], Partial fill upon patient request if the prescription is for a schedule II op... Start Date: 03/17/22 Stop Date: 04/16/22 Status: OrderedZyPREXA 10 mg oral tablet 10 mg, 1, tablet, By Mouth, 2 times a day, # 60 tablet, Refills 0, Tot. Refills 0, Maintenance, 03/17/22 12:21:00 EDT, Route to Pharmacy Electronically, [facility], Partial fill upon patient request if [...] Care Team PersonnelName: Geeta Blanca MD Address: [address] [place] [address]
--- OUTSIDE RECORDS SUMMARY | 2022-05-25 19:53 | XMS_ITS | Continuity of Care Document ---
:1995 Author Organization [facility] Address [address] [place] [address]- Care Team Providers Name Role Phone Not on Staff, PCP Primary Care Physician Unavailable [id number] Date(s): 12/15/21 - 12/19/[address] [address] Discharge Disposition: A-D/C Home Attending Physician: Mitchell Sanz DO Admitting Physician: José Gardner DO Referring Physician: Not on Staff, Referring MD Allergies, Adverse Reactions, Alerts Substance Reaction Severity Status shellfish Active Thorazine Active Depakote Risperidone adverse reaction Act anival Risperidone Risperidone Risperidone Risperidone Risperidone Risperidone Latex Active Tomatoes Active RisperDAL Active Lactose Active Medications acetaminophen 325 mg oral tablet 650 mg, Tablet, By Mouth, Every 8 hours, PRN for Pain , Moderate, Routine, 12/16/21 11:03:00 EDT Start Date: 12/16/21 Stop Date: 12/19/21 Status: DiscontinuedAtivan 0.5 mg oral tablet 1 tablet = [...] oral tablet 20 mg, Tablet, By Mouth, 12/18/21 21:00:00 EDT Start Date: 12/18/21 Stop Date: 12/18/21 Status: Completedpropranolol 20 mg oral tablet 20 mg, Tablet, By Mouth, 12/19/21 9:00:00 EDT Start Date: 12/19/21 Stop Date: 12/19/21 Status: Completedpropranolol 20 mg oral tablet 20 [...] Exam Date Time Procedure Performing Provider Status 12/18/21 9:30 AM Abdomen AP Pirosseno , Darwin; Auth (Verifie d) Notes:(Abdomen AP) Reason For Exam: foreing body in ileum in CT;Foreign Body RESULT: XR Abdomen AP XR Abdomen AP 1 view INDICATION/CLINICAL QUESTION: Foreign Body; foreign body in ileum in CT; Clinical Question(s): Foreign Body COMPARISON: 12/16/2021, CT from 12/15/2021. FINDINGS: Mild stool retention but otherwise normal bowel gas pattern. No evidence of obstruction. No evidence of pneumoperitoneum. No organomegaly, masses or calcifications. No acute bone findings. IMPRESSION: No radiopaque foreign body identified. No evidence of bowel perforation or obstruction. WSN: [id number] Ordering Physician: Ronaldo Bernabe Dictated By: Jordan Pelayo MD Dictated Date/Time: 12/18/21 10:31 a Reviewed By: Jordan Pelayo MD Signed By: Jordan Pelayo MD Signed Date/Time: 12/18/21 10:31 am Transcribed By: LAINA Transcribed Date/Time: 12/18/21 10:08 am Exam Date Time Procedure Performing Provider Status 12/16/21 7:52 AM Abdomen AP osseDarwin turner; Auth (Verifie d) Notes:(Abdomen AP) Reason For Exam: Foreign BodyRESULT: XR Abdomen AP XR Abdomen AP 1 view, supine INDICATION/CLINICAL QUESTION: Reason: Foreign Body; Clinical Question(s): Foreign Body COMPARISON: 12/15/2021, 8:[address] abdomen pelvis 12/15/2021 reviewed. Earlier exam from 11/07/2021 reviewed. FINDINGS: Projecting over the gastric body/antrum and the left side of the lower thoracic spine there is a metallic foreign body consistent with a small spring, measuring 3.4 cm in length and 0.5 cm in diameter,similar to a spring that one might expect with a ballpoint pen; no definite pen is visualized, however. No other foreign body is seen other than ECG pads. This is shifted slightly in position from the region of the gastric fundus since the recent prior radiograph. Normal bowel gas pattern. No evidence of obstruction. No evidence of pneumoperitoneum, but sensitivity limited on a supine view. No organomegaly, masses or calcifications. No acute bone findings. Visualized lung bases clear. IMPRESSION: Metallic foreign body seen in the region of the gastric antrum has appearance of a small metallic spring, such as one might see with a ball point pen. No definite pen is visualized in agreement with prior imaging. Since the recent prior study, this has shifted minimally from the region of the gastric fundus. WSN: [id number] Ordering Physician: José Gardner Dictated By: Jordan Meier MD Dictated Date/Time: 12/16/21 10:00 a Reviewed By: Jordan Meier MD Signed By: Jordan Meier MD Signed Date/Time: 12/16/21 10:00 am Transcribed By: LAINA Transcribed Date/Time: 12/16/21 9:56 am Exam Date Time Procedure Performing Provider Status 12/15/21 8:26 PM Nose to Rectum Foreign Body 1 Lisa Roberson; Shakir (Verified) View Child Notes:(Nose to Rectum Foreign Body 1 View Child) Reason For Exam: PainRESULT: Nose to Rectum Foreign Body 1 View Child Nose to Rectum Foreign Body 1 View Child INDICATION: History of pica, swallowed a piece metal piece from a pen today. Chest pain. Rule out foreign body, free air. COMPARISON: 11/07/2021 FINDINGS: 1.9 cm tubular density projecting over the left upper abdomen likely corresponding to the foreign object that was reportedly swallowed. Low lung volumes. Mild diffuse lung haziness, likely due to underpenetration. No pleural effusion orpneumothorax. Normal cardiac mediastinal silhouette. No evidence of pneumoperitoneum. Moderate colonic stool retention. Normal bones. IMPRESSION: 1.9 cm tubular foreign body projecting over the left upper abdomen, which may be within the stomach or proximal jejunum. No evidence of pneumoperitoneum. Findings were relayed by Dr. Perez to Arturo Morocho MD via [employer] on 12/15/2021 8:36 PM . I have personally reviewed the images and I agree with this report. WSN: [id number] Ordering Physician: Arturo Morocho Dictated By: Zhao Perez DO Dictated Date/Time: 12/15/21 8:38 pm Reviewed By: Epifanio Maher MD Signed By: Epifanio Maher MD Signed Date/Time: 12/15/21 8:43 pm Transcribed By: LAINA Transcribed Date/Time: 12/15/21 8:37 pm Vital Signs Most recent to oldest 1 2 3 [Reference Range]: Height 158 cm 158 cm 158 cm (12/19/21 6:25 AM) (12/18/21 8:29 PM) (12/18/21 2:5 1 PM) Weight 102.7 kg 102.7 kg 91 kg (12/16/21 11:26 AM) (12/16/21 10:34 AM) (12/16/21 8 :09 AM) Oxygen Saturation [94-100 92 % 98 % 98 % %] *L* (12/18/21 8:29 PM) (12/18/21 2:51 PM) (12/19/21 6:25 AM) Pulse Rate [55-90 bpm] 82 bpm 90 bpm 95 bpm (12/19/21 8:28 AM) (12/19/21 6:25 AM) *H* (12/18/21 9:14 PM ) Body Mass Index 41.14 41.14 36.45 [18.5-24.99] *>HHI* *>HHI* *>HHI* (12/16/21 11:26 AM) (12/16/21 10:34 AM) (12/16/21 8 :09 AM) Blood Pressure 140/78 mm Hg 99/70 mm Hg 110/82 mm Hg [90-138/55-84 mm Hg] *H* (12/19/21 6:25 AM) (12/18/21 9:14 PM) (12/19/21 8:28 AM) Respiratory Rate [16-30 17 br/min 18 br/min 16 br/mi n br/min] (12/19/21 9:28 AM) (12/19/21 6:25 AM) (12/19/21 2:4 8 AM) Temperature [96.8-100.4 98.9 DegF 98.0 DegF 98.7 Deg F DegF] (12/19/21 6:25 AM) (12/18/21 8:29 PM) (12/18/21 2:5 1 PM) Liters per Minute 1 L/min 2 L/min 4 L/min (12/16/21 12:17 PM) (12/16/21 12:12 PM) (12/16/21 1 2:05 PM) Mode of Delivery (Oxygen) Room air Room air Room a ir (12/18/21 2:51 PM) (12/18/21 7:58 AM) (12/17/21 8:0 0 PM) Blood pressure sites Arm, right Arm, right Arm, right (12/18/21 2:51 PM) (12/18/21 7:58 AM) (12/17/21 8:0 0 PM) Temperature Route Oral Oral Oral (12/18/21 2:51 PM) (12/18/21 7:58 AM) (12/17/21 8:0 0 PM) Dry Weight 102.7 kg 91 kg 91 kg (12/16/21 10:34 AM) (12/16/21 8:09 AM) (12/15/21 7: 22 PM) Dry Weight Obtained Via Patient/family stated (12/15/21 7:22 PM) Social History Social History Type Response Smoking Status Never (less than 100 in life time) entered on: 10/20/21 Sex
--- OUTSIDE RECORDS SUMMARY | 2022-05-25 19:54 | XMS_ITS | Encounter Summary ---
:1995 Author Care Team Providers Name Role Phone Dafne Minerva CAO Primary Care Provider [phone] Cornel Byrd MD Sleeve Presser Operator [phone] Adilson Blankenship MDfood and beverage associate [phone] Tahir Akers MD Maintenance Shop Welder [phone] Reason for Visit Transition of Care Assessment and Plan Assessment Note Total Time spent: 35 minutes: ? Counseling and educating the patient/f amily/caregiver: 5 minutes ? Documenting clinical information in [facility] EHR or other health record: 10 minutes ? Performing a medically appropriate exa mination and /or evaluation: 5 minutes ? Obtaining and/or reviewing separately obtained history: 10 minutes ? Ordering medications, test, or procedu res: 5 minutes ? Referring and communicating with other health care providers: 0 minutes ? Independently interpreting results and communicating results to the patient/family/caregiver: 0 minutes 1. Farhana Farfan was admitted to [facility] from 02/19 3 -03/10/22 (DC'd 03/10/22) s/p ingestion of AA battery. OR on 03/04/22 for Diagnostic laparoscopy, mini midline laparotomy, enterotomy of the mid-jejunum removal of foreign body and primary repair and closure. She admits that later she swallowed a sc rew and had endoscopy performed with retrieval and on 03/22/22 was seen in the ER s/p swallowing a piece of plastic. She is due to follow up with [facility] surgery on 03/24/22 in the AM. 2. Abdominal pain 3 lap sites- well approximated and C/D/ I at this time. Free from redness, discharge or s/sx infection. Pt reports occasional 8/10 abdominal vonnie n internally at the lap site in the umbilical area. She has completed her course (7 days) of oxycodone and will see surgery at [facility] tomorrow for further evaluation. Check CBC/CMP ? abdominal pain: care instructions ? CBC w/ auto diff ? CMP, serum or plasma 3. Nausea Naheed reports nausea intermittently ove r the last several days. Zofran has helped with some effect. It has some serious drug interactions r/t prolonged QT. Her last QT was checked on 03/04/22 and it was 376. Will give her a 3 day course of MT N zofran. Encouraged Naheed to eat small, bland eleazar ls and continue with small sips of liquids. She was advised to call the office with any worsening of her nausea or vomiting. ? ondansetron HCl 4 mg tablet ? nausea and vomiting: care instruction s 4. Body mass index 40+ - severely obese BMI 42 ? A healthy lifestyle: care instruction s ? body mass index: care instructions ? learning about healthy weight Discussion Note: None recorded. Plan of Care Patient Instructions Please follow up if you experience any changes or worsening of your symptoms. 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 Follow up 30 on or around 09/04/2022 Tahir Akers MD Lab CBC W/ Auto Diff 03/23/2022 [facility] ? CMP, Serum or Plasma 03/23/2022 [facility] Referral None recorded. ? ? Procedures None recorded. ? ? Surgeries None recorded. ? ? Imaging None recorded. ? ? Medications Name Start Date ? ? acetaminophen 325 mg tablet ? TAKE TWO TABLETS BY MOUTH EVERY 6 HOURS NEEDED Artificial Tears ? 0.5% every four hours PRN baclofen 5 mg tablet ? Take 1 tablet as needed by oral route. Banophen 50 mg capsule ? Every morning, and PRN (Benadryl) benztropine 1 mg tablet ? Take 1 tablet every day by oral route at bedtime. Calcium Antacid 200 mg calcium (500 mg) chewable table t ? TAKE TWO (2) TABLETS FOUR (4) TIMES A DAY BY ORAL ROU TE NEEDED. docusate sodium 100 mg tablet ? Take 1 tablet twice a day by oral route. EpiPen 2-Gonzalo 0.3 mg/0.3 mL injection, auto-injector ? Inject once daily as needed FeroSul 325 mg (65 mg iron) tablet ? TAKE ONE TABLET BY MOUTH ONCE DAILY FreeStyle Lite Strips ? Test blood sugar once daily or as directed by your pr ovider gabapentin 100 mg capsule ? Take 1 capsule 3 times a day by oral route. Haldol 10 mg tablet ? Take 1 tablet twice a day by oral route. haloperidol 5 mg tablet 02/03/2022 Take 1 tablet twice a day by oral route. ibuprofen 200 mg tablet ? Take 2 tablets every 4 hours by oral route as needed. Imitrex 100 mg tablet ? Take as needed by oral route. lorazepam 0.5 mg tablet ? Take 1 tablet every day by oral route in the morning. lorazepam 1 mg tablet ? Take 1 tablet every day by oral route at bedtime. magnesium oxide 500 mg tablet ? Take 1 tablet every day by oral route. Metamucil Fiber Singles 3.4 gram oral powder packet ? Take 1 packet daily with 8 oz of water metformin 500 mg tablet ? Take 1 tablet twice a day by oral route. Miralax 17 gram oral powder packet ? Take 1 packet every day by oral route as needed for 3 0 days. olanzapine 15 mg tablet ? Take 1 tablet every day by oral route. omeprazole 20 mg capsule,delayed release ? Take 1 capsule twice a day by oral route. ondansetron HCl 4 mg tablet ? Take 1 tablet 3 times a day by oral route as needed f or 3 days. propranolol 20 mg tablet ? Take 1 tablet twice a day by oral route. riboflavin (vitamin B2) 400 mg tablet ? Take 1 tablet every day by oral route. Saline Mist 0.65 % nasal spray aerosol ? Take 1 spray twice a day by nasal route. Use 1 spray in each nostril twice daily. senna 8.6 mg tablet ? TAKE TWO TABLETS BY MOUTH ONCE DAILY trazodone 100 mg tablet ? Take 1 tablet as needed by oral route. Vitamin C 250 mg tablet ? Take 1 tablet twice a day by oral route. Notes: 03/23/2022 - Med list uncertain a t this time. Medications Administered None recorded. Vitals Height Weight BMI Blood Pressure 5 ft 1.5 in 226 lbs 42 kg/m2 (1) 84/64 mm[Hg ] (2) 92/60 mm[Hg] Results Lab Results Date Name Specimen Result Interpretation Description Value Range Status Address ? 03/23/2022 CBC W/ ? Wbc 6.0 3.4-10.8 Final [facility] Auto x10e3/uL x10e3/uL [facility]: [address], [place] ? ? ? Rbc 4.02 3.77-5.28 Final [facility] x10e6/uL x10e6/uL [facility]: [address], [place] ? ? ? Hemoglobin 11.1 g/dL 11.1-15.9 Final [facility] g/dL [facility]: [address], [place] ? ? Below Hematocrit 33.0 % 34.0-46.6 Final [facility] Low % [facility]: [address], [place] ? ? ? Mcv 82 fL 79-97 fL Final [facility]: [address], [place] ? ? ? Mch 27.6 pg 26.6-33.0 Final [facility] p pg [facility]: [address], [place] ? ? ? Mchc 33.6 g/dL 31.5-35.7 Final [facility] g/dL [facility]: [address], [place] ? ? ? Rdw 13.7 % 11.7-15.4 Final [facility] % [facility]: [address], [place] ? ? ? Platelets 326 150-450 Final [facility] rp x10e3/uL x10e3/uL [facility]: [address], [place] ? ? ? Neutrophils 60 % not estab. Final [facility] % [facility]: [address], [place] ? ? ? Lymphs 35 % not estab. Final [facility] rp % [facility]: [address], [place] ? ? ? Monocytes 5 % not estab. Final [facility] % [facility]: [address], [place] ? ? ? Eos 0 % not estab. Final [facility] p % [facility]: [address], [place] ? ? ? Basos 0 % not estab. Final [facility] p % [facility]: [address], [place] ? ? ? Immature vocal teacher ? Cancelled [facility] orp Cells [facility]: [address], [place] ? ? ? Neutrophils 3.5 1.4-7.0 Final [facility] (Absolute) x10e3/uL x10e3/uL [facility]: [address], [place] ? ? ? Lymphs 2.1 0.7-3.1 Final [facility] (Absolute) x10e3/uL x10e3/uL [facility]: [address], [place] ? ? ? Monocytes(abs 0.3 0.1-0.9 Final [facility] olute) x10e3/uL x10e3/uL [facility]: [address], [place] ? ? ? Eos 0.0 0.0-0.4 Final [facility] (Absolute) x10e3/uL x10e3/uL [facility]: [address], [place] ? ? ? Baso 0.0 0.0-0.2 Final [facility] (Absolute) x10e3/uL x10e3/uL [facility]: [address], [place] ? ? ? Immature 0 % not estab. Final [facility] Granulocytes % [facility]: [address], [place] ? ? ? Immature 0.0 0.0-0.1 Final [facility] p Grans (Abs) x10e3/uL x10e3/uL P [facility]: [address], [place] ? ? ? Nrbc vocal teacher ? Cancelled [facility]: [address] [place] ? ? ? Hematology vocal teacher ? Cancelled [facility] Comments: [facility]: [address] [place] 03/23/2022 CMP, Above Glucose 102 mg/dL 65-99 Final [facility] Serum or High mg/dL [facility]: [address] [place] ? ? ? Bun 9 mg/dL 6-20 mg/dL Final [facility] r[facility]: [address] [place] ? ? ? Creatinine 0.59 mg/dL 0.57-1.00 Final [facility] mg/dL [facility]: [address] [place] ? ? ? Egfr 127 >59 Final [facility] mL/min/1.7 mL/min/1.7 [facility]: [address] [place] ? ? ? BUN/creatinin 15 9-23 Final [facility] e Ratio [facility]: [address], [place] ? ? ? Sodium 140 mmol/L 134-144 Final [facility] mmol/L [facility]: [address] [place] ? ? ? Potassium 4.2 mmol/L 3.5-5.2 Final [facility] mmol/L [facility]: [address] [place] ? ? ? Chloride 105 mmol/L 96-106 Final [facility] mmol/L [facility]: [address] [place] ? ? ? Carbon 23 mmol/L 20-29 Final [facility] p Dioxide, Total mmol/L PS [facility]: [address], [place] ? ? ? Calcium 9.4 mg/dL 8.7-10.2 Final [facility] mg/dL [facility]: [address], [place] ? ? ? Protein, 6.8 g/dL 6.0-8.5 Final [facility] Total g/dL [facility]: [address] [place] ? ? Below Albumin 3.8 g/dL 3.9-5.0 Final [facility] Low g/dL [facility]: [address], [place] ? ? ? Globulin, 3.0 g/dL 1.5-4.5 Final [facility] Total g/dL [facility]: [address] [place] ? ? ? A/g Ratio 1.3 1.2-2.2 Final [facility]: [address] [place] ? ? ? Bilirubin, 0.3 mg/dL 0.0-1.2 Final [facility] Total mg/dL [facility]: [address] [place] ? ? Above Alkaline 140 IU/L 44-121 Final [facility] High Phosphatase IU/L [facility]: [address], [place] ? ? ? Ast (Sgot) 19 IU/L 0-40 IU/L Final [facility]: [address], [place] ? ? ? Alt (Sgpt) 17 IU/L 0-32 IU/L Final [facility]: [address] [place] Allergies Code Code System Name Reaction Severity Onset 058280 RxNorm Depakote ? ? ? 6211 RxNorm Lactose ? ? ? 8317948 RxNorm Latex ? ? ? 61921 RxNorm Risperidone ? ? ? Shellfish Derived ? ? ? Thorazine ? ? ? Tomato ? ? ? Problems Name Status Onset Date Source ? Posttraumatic Stress Disorder Active 08/06/2020 ? Intellectual Disability Active 08/06/2020 ? Body Mass Index 30+ - Obesity Active 08/07/2020 ? Constipation Active 08/07/2020 ? Chronic Back Pain Active 08/07/2020 ? Adult Health Examination Active 09/29/2020 ? Vitamin D Deficiency Active 10/08/2020 ? Pica Active 12/25/2020 ? Tachycardia Active 02/15/2021 ? Vomiting Active 02/16/2021 ? Hyperglycemia Active 02/23/2021 ? Chest Pain Active 03/01/2021 ? Pericardial Effusion Active 03/24/2021 ? Headache Active 05/21/2021 ? Type 2 Diabetes Mellitus Active 05/27/2021 ? Disorder of Thymus Gland Active 06/24/2021 ? 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 Left Lower Quadrant Pain Active 08/25/2021 ? Vaginitis Active 09/15/2021 ? Dysuria Active 09/15/2021 ? Hyperprolactinemia Active 10/18/2021 ? Prediabetes Active 10/18/2021 ? Hyperlipidemia Active 12/17/2021 ? Nausea and Vomiting Active 12/30/2021 ? Bleeding from Nose Active 12/31/2021 ? Body Mass Index 40+ - Severely Obese Active 03/23/2022 ? Procedures Date Name Performed by ? 05/01/2022 Stomach Surgery Procedure Information no t available Notes: removed a swallowed object ? Abdominal Surgery Information not avai lable ? General Surgery Information not avai lable Vaccine List Vaccine Type COVID-19, mRNA, LNP-S, PF, 100 mcg/0.5 m L dose (Moderna) 12/18/2020 01/15/2021 Influenza, injectable, MDCK, preservativ e free, quadrivalent 09/08/2020?0.5 mL Social History Tobacco Smoking Status Never Smoker What type of diet are you following? REGULAR Are you able to care for yourself? Y Are you currently employed? N How much tobacco do you chew? none Is blood transfusion acceptable in N an emergency? If pulse oximetry was done: Is the N patient's Sp02 less than 93% on room air? What is your relationship status? Single What is your level of alcohol None consumption? Do you have any pets? N If yes to Fever is there an N/A alternate reason for the fever? Are you deaf or do you have serious N difficulty hearing? Do you or have you ever used any N other forms of tobacco or nicotine? Have you ever been counseled for N unhealthy alcohol use? In the last 14 days has the patient N had contact with a COVID-19 positive patient or a COVID-19 suspect patient awaiting test results? What is the highest grade or level [id number] of school you have completed or the highest degree you have received? How many children do you have? 0 Document if there could be an N/A alternative reason for the low Sp02 such as COPD. Has tobacco cessation counseling N been provided? Are you blind or do you have N difficulty seeing? Have you used IV drugs? N If yes, list symptoms. N/A Does the patient have a fever? N What was the date of your most 05/05/2022 recent tobacco screening? Do you have an advanced directive? N Has the patient ever tested positive N for COVID-19? Do you use any illicit or N recreational drugs? How many years have you smoked 0 tobacco? What is your exercise level? None Which of your hands is dominant? Right In the last 14 days, has the patient N had any of these symptoms? Fever, Cough with or without sputum production, Shortness of breath or difficulty breathing, Congestion or Runny Nose, Body Aches or Muscle Pain, Fatigue, Nausea/Vomiting, Diarrhea, Headache, Chills, Sore Throat, New Loss of Taste/Smell, or Significant Loss of Appetite. Are you sexually active? Notes: Wont a nswer Do you have difficulty Y Notes: Concent rating concentrating, remembering or making decisions? What is your level of caffeine Occasional Notes: 1 - 2 cups of coffee/day consumption? What is your occupation? Not working Do you feel stressed (tense, [id number] restless, nervous, or anxious, or unable to sleep at night)? Family History Relation Problem Onset Age of Age Notes Brother Adopted (No Information) N/A (No Notes) Sister Adopted (No Information) N/A (No Notes) Functional Status Do you have difficulty concentrating, remembering or makin g decisions?? Yes Past Encounters 03/23/2022 Pica; Abdominal Pain; Nausea; Body Mass Index 40+ - Severely Obese Dafne Palma, EDUCATIONAL PROGRAMMING DIRECTOR: [address] [facility] [address], [place] [address], Ph. History of Present Illness Note: <div>This is a hospital follow up. </div><div>Patient was admitted to: [facility]</div><div>Admitted on: 03/03/22</div><div>Discharge on: 03/10/22</div><div>Admitted for: Foreign body ingestion, Major Depressive disorder</div><div>
</div><div>Naheed was urgently taken to the OR for surgery on 03/04/22 s/pingestion of AA battery. Naheed states that she also swallowed a screw, had endoscopy and it was removed shortly after her battery ingestion. We have no records of this incident, and we will request records of this. She also notes that on 03/22/22, she swallowed a piece of plastic and was seen in the [facility] ER who performed a series of imaging and was unable to find the plastic. </div><div>
</div><div>Problem list:</div><div>-PTSD</div><div>-MDD </div><div>-BPD</div><div>-Foreign body ingestion</div><div><b r></div><div>Data/Tests:</div><div>-Diagnostic laparoscopy, mini midline l aparotomy, enterotomy of the mid-jejunum removal of foreign body and primary repair and closure. </div><div>
</div><div>D/C medications:</div><div>-Oxycodone 5mg Q4H x 7 days</div><div>-Benadryl 50mg daily</div><div>-Ativan 1mg BID and 0.5mg BID PRN anxiety/agitation</div><div>- PO/IM zyprexa 10mg BID and 5mg BID PRN severe agitation (max dose of 45mg)</div><div>-Benztropine 1mg BID</div><div>-Haldol 15mg BID</div><div>- Trazodone 100mg QHS PRN insomnia</div><div>
</div><div>Current status:</div><div>F/U with surgery on 03/24/22 @ 10:[address] Spaulding. </div><div>Naheed's pain is manageable at this time, she notes that she ran out of her oxycodone and at times her pain is 8/10 to her umbilical area. She is able to tolerate small meals more frequently throughout the day, voiding and ambulating independently. She notes that yesterday, she was not able to hold down water, but today is able to eat and drink small amounts. She notes that she has some diarrhea, but denies any blood in the stool at this time. She does reportfeeling nausea regularly and has been taking zofran with some effect. She is due to see surgery tomorrow, 03/24/22.</div><div>She notes that she is due to see her psychiatrist this week and will continue to follow her once a month or so. </div>Review of Systems: ROS as noted in the HPI Review of Systems ? Adult Intermediate - Female Reported By: Patient Constitutional: Constitutional: no fever, no chills, no sweats, no fatigue/malaise, no significant weight change , no exercise intolerance, no generalized body aches ENMT: Ears: no ear pain, no hearin g loss, no tinnitus, no discharge. Nose/Sinus: no sinus pain, n o nosebleeds, no nasal discharge, no nasal blockage, no excessive snoring. Mouth/Throat: no sore throat, no dry mouth, no bleeding gu ms, no ulcers, no dentition problems, no hoarseness Respiratory: Respiratory: no shortness of breath, no pain on deep breath, no dyspnea, no wheezing, no cou gh, no coughing up blood, no pain on cough Cardiovascular: Cardiovascular: no chest vonnie n, no radiating pain, no SOB, no dyspnea during exertion, no orthopnea: ( pillows at night), no palpitations, no lightheaded ness, no limb swelling, no heart murmur Gastrointestinal: Gastrointestinal: no appetit e changes, no dysphagia, no heartburn, no acid reflux, no vomiting, no constipation, no tarry stools, no rectal bleeding, no mucus in stool, abdominal pain, nausea, diarrhea; Umbilical ABD pain Psychiatric: Psych: no depression, no anx iety, no sleep disturbance, no recent stress, no suicide ideation Physical Exam ? Adult Intermediate Reported By: Patient Constitutional: General Appearance: healthy- appearing, morbidly obese. Level of Distress: NAD Psychiatric: Insight: poor insight. Menta l Status: active and alert, normal mood, normal affect. Orienta tion: to time, to place, to person. Memory: recent memor y normal, remote memory normal Eyes: Lids and Conjunctivae: non-i njected Neck: Neck: supple, trachea midlin e, no masses Lungs: Respiratory effort: no dyspn ea. Inspection: normal. Auscultation: breath sounds normal, good air movement, CTA except as noted, no wheezing , no rales/crackles, no rhonchi Cardiovascular System: Apical Impulse: not displace d. Heart Auscultation: RRR, normal S1, normal S2, no murmurs, n o rubs, no gallops Abdomen: Bowel Sounds: normal. Inspec tion and Palpation: soft, non-distended, no guarding, no rebound tenderness, epigastric tenderness. GI: no hepatomeg yesenia, no splenomegaly, no abdominal masses, no abdominal hernia, no umbilical hernia; 3 lap sites with wound edges well-approx imated and free from redness, drainage or swelling Neurologic: Ambulation: ambulation: no l imitations Skin: Inspection and palpation: no rash, no ulcerations, no feet calluses, no abnormal nevi, no induration, no nodules, good turgor, no jaundice, lesion; Abrasions notes to the left arm from self harm due to patien t being frustrated. Denies SI/HI
--- OUTSIDE RECORDS SUMMARY | 2022-05-25 19:54 | XMS_ITS | Continuity of Care Document ---
:1995 Author Organization [facility] Address [address] [place] [address]- Care Team Providers Name Role Phone Geeta Blanca MD Primary Care Physician Encounter [facility] [place] Date(s): 05/02/22 - 05/04/[address] [address] Discharge Disposition: A-D/C Home Attending Physician: Jsoé Bob MD, Charles Cruz Admitting Physician: Hermilo MACHUCA, Jeferson Referring Physician: Florecita MACHUCA, Red Hughes Allergies, Adverse Reactions, Alerts Substance Reaction Severity [...] 03/17/22 12:20:00 EDT, Route to Pharmacy Electronically, [facility], Partial fill upon patient request if [...] tablet, 0 Refills, Maintenance, 03/17/22 12:20:00EDT, Tablet, [facility], Partial fill upon patient request if the prescription is for a schedule II opioid drug., 160, cm, 03/15/22 16:19:00 EDT,... Start Date: 03/17/22 Status: Orderedhaloperidol 10 mg oral tablet 15 mg, 1.5, tablet, By Mouth, 2 times a day, # 90 tablet, Refills 0, Tot. Refills 0, Maintenance, 03/17/22 12:23:00 EDT, Route to Pharmacy Electronically, [facility], Partial fill upon patient request if [...] oral capsule 100 mg, Capsule, By Mouth, 05/04/22 15:00:00 EDT Start Date: 05/04/22 Stop Date: 05/04/22 Status: CompletedNeurontin 100 mg oral capsule 100 mg, 1, capsule, By Mouth, 3 times a day, # 90 capsule, Refills 0, Tot. Refills 0, Maintenance, 03/17/22 12:22:00 EDT, Route to Pharmacy Electronically, [facility], Partial fill upon patient request if [...] oral tablet 20 mg, Tablet, By Mouth, 05/04/22 9:00:00 EDT Start Date: 05/04/22 Stop Date: 05/04/22 Status: Completedpropranolol 20 mg oral tablet 20 mg, 1, tablet, By Mouth, 2 times a day, # 60 tablet, Refills 0, Tot. Refills 0, Maintenance, 03/17/22 12:22:00 EDT, Route to Pharmacy Electronically, [facility], Partial fill upon patient request if [...] 03/17/22 12:25:00 EDT, Route to Pharmacy Electronically, [facility], Partial fill upon patient request if [...] 03/17/22 12:21:00 EDT, Route to Pharmacy Electronically, [facility], Partial fill upon patient request if [...] Exam Date Time Procedure Performing Provider Status 05/02/22 9:20 AM Abdomen AP Feli Hathaway; Auth (Hiren ified) Notes:(Abdomen AP) Reason For Exam: Foreign BodyRESULT: XR Abdomen AP Supine view of the abdomen and pelvis dated May 02, 2022. Comparison films are from May 01, 2022. HISTORY: Follow-up foreign body. FINDINGS: This examination shows a screw in the upper abdomen just right of midline. It is not significant changed in position when compared with the prior study. No dilated loops of large or small bowel are appreciated. Visualized osseous structures are unremarkable. IMPRESSION: Relatively stable position of an ingested screw. Examination 07127. Thank you for allowing me to participate in the care of this patient. WSN: [id number] Ordering Physician: Red Bernabe Dictated By: Jaswant Momin MD Dictated Date/Time: 05/02/22 11:31 a Reviewed By: Jaswant Momin MD Signed By: Jaswant Momin MD Signed Date/Time: 05/02/22 11:31 am Transcribed By: LAINA Transcribed Date/Time: 05/02/22 11:31 am Vital Signs Most recent to oldest 1 2 3 [Reference Range]: Height 162 cm 162 cm 162 cm (05/04/22 7:00 AM) (05/04/22 3:09 AM) (05/03/22 7:5 9 PM) Weight 95 kg 95 kg (05/02/22 2:23 PM) (05/02/22 4:40 AM) Oxygen Saturation [94-100 %] 96 % 93 % 95 % (05/04/22 3:00 PM) *L* (05/04/22 7:00 AM) (05/04/22 11:00 AM) Pulse Rate [55-90 bpm] 73 bpm 90 bpm 82 bpm (05/04/22 3:00 PM) (05/04/22 11:00 AM) (05/04/22 9: 41 AM) Body Mass Index [18.5-24.99] 36.2 36.2 *>HHI* *>HHI* (05/02/22 2:23 PM) (05/02/22 4:40 AM) Blood Pressure [90-138/55-84 115/59 mm Hg 113/63 mm Hg 109 /68 mm Hg mm Hg] (05/04/22 3:00 PM) (05/04/22 11:00 AM) (05/04/22 9: 41 AM) Respiratory Rate [16-30 16 br/min 16 br/min 20 br/mi n br/min] (05/04/22 3:00 PM) (05/04/22 2:33 PM) (05/04/22 11: 00 AM) Temperature [96.8-100.4 DegF] 97.9 DegF 97.9 DegF 97 .5 DegF (05/04/22 3:00 PM) (05/04/22 11:00 AM) (05/04/22 7: 00 AM) Liters per Minute 6 L/min (05/02/22 3:30 PM) Mode of Delivery (Oxygen) Room air Room air Room a ir (05/04/22 3:00 PM) (05/04/22 11:00 AM) (05/04/22 7: 00 AM) Blood pressure sites Arm, left Arm, left Arm, left (05/04/22 3:00 PM) (05/04/22 11:00 AM) (05/04/22 7: 00 AM) Temperature Route Oral Oral Oral (05/04/22 3:00 PM) (05/04/22 11:00 AM) (05/04/22 7: 00 AM) Dry Weight 95 kg (05/02/22 4:40 AM) Weight Obtained Via Bed scale (05/02/22 4:40 AM) Dry Weight Obtained Via Bed scale (05/02/22 4:40 AM) Social History Social History Type Response Smoking Status Never (less than 100 in life time) entered on: 10/20/21 Sex XR Abdomen AP BHSPowerscribe , CIS S: TRANSCRIBE Merrill MACHUCA, Jaswant Reyes: VERIFY Event Display: Result: Authored Date: [id number] Supine view of the abdomen and pelvis dated May 02, 2022. Comparison films are from May 01, 2022. HISTORY: Follow-up foreign body. FINDINGS: This examination shows a screw in the upper abdomen just right of midline. It is not significant changed in position when compared with the prior study. No dilated loops of large or small bowel are appreciated. Visualized osseous structures are unremarkable. IMPRESSION: Relatively stable position of an ingested screw. Examination 19095. Thank you for allowing me to participate in the care of this patient. WSN: [id number] Ordering Physician: Red Bernabe Dictated By: Jaswant Momin MD Dictated Date/Time: 05/02/22 11:31 a Reviewed By: Jaswant Momin MD Signed By: Jaswant Momin MD Signed Date/Time: 05/02/22 11:31 am Transcribed By: LAINA Transcribed Date/Time: 05/02/22 11:31 am Care Team PersonnelName: Geeta Blanca MD Address: [address] [place] [address]
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
--- OUTSIDE RECORDS SUMMARY | 2022-05-25 19:54 | XMS_ITS | Continuity of Care Document ---
:1995 Author Organization [facility] Address [address] [place] [address]- Care Team Providers Name Role Phone Not on Staff, PCP Primary Care Physician Unavailable [id number] Date[facility] 02/06/22 - 02/07/[address] [address]- Encounter Diagnosis Suicidal ideation (Final) - 02/07/22 Discharge Disposition: A-D/C Home Attending Physician: Cecil Sultana MD Admitting Physician: Cecil Sultana MD Referring Physician: Not on Staff, Referring [...] Height 158 cm 158 cm 158 cm (02/07/22 9:28 AM) (02/06/22 8:09 PM) (02/06/22 7:5 8 PM) Weight 104 kg 104 kg (02/06/22 8:09 PM) (02/06/22 7:58 PM) Oxygen Saturation [94-100 %] 98 % 98 % 97 % (02/07/22 9:28 AM) (02/07/22 1:39 AM) (02/06/22 7:5 8 PM) Pulse Rate [55-90 bpm] 128 bpm 102 bpm 121 bpm *H* *H* *H* (02/07/22 9:28 AM) (02/07/22 1:39 AM) (02/06/22 7:5 8 PM) Body Mass Index [18.5-24.99] 41.66 *>HHI* (02/06/22 7:58 PM) Blood Pressure [90-138/55-84 mm 132/70 mm Hg 105/69 mm Hg 135/81 mm Hg Hg] (02/07/22 9:28 AM) (02/07/22 1:39 AM) (02/06/22 7:5 8 PM) Respiratory Rate [16-30 br/min] 20 br/min 20 br/min 18 br/min (02/07/22 9:28 AM) (02/07/22 1:39 AM) (02/06/22 7:5 8 PM) Temperature [96.8-100.4 DegF] 98.2 DegF 98.1 DegF 98 .9 DegF (02/07/22 9:28 AM) (02/07/22 1:39 AM) (02/06/22 7:5 8 PM) Mode of Delivery (Oxygen) Room air Room air Room a ir (02/07/22 9:28 AM) (02/07/22 1:39 AM) (02/06/22 7:5 8 PM) Blood pressure sites Arm, left Arm, right Arm, left (02/07/22 9:28 AM) (02/07/22 1:39 AM) (02/06/22 7:5 8 PM) Temperature Route Oral Oral Temporal (02/07/22 9:28 AM) (02/07/22 1:39 AM) (02/06/22 7:5 8 PM) Dry Weight 104 kg 104 kg (02/06/22 8:09 PM) (02/06/22 7:58 PM) Social History Social History Type Response Smoking Status Never (less than 100 in life time) entered on: 10/20/21 Sex
--- OUTSIDE RECORDS SUMMARY | 2022-05-25 19:54 | XMS_ITS | Continuity of Care Document ---
:1995 Author Organization [facility] Address [address] [place] [address]- Care Team Providers Name Role Phone Not on Staff, PCP Primary Care Physician Unavailable Encounter [facility] [place] Date(s): 12/27/21 - 12/28/[address] [address]- Discharge Disposition: A-D/C Walkout Attending Physician: Not on Staff, Attending MD Admitting Physician: Not on Staff, Admitting MD Referring Physician: Not on Staff, Referring [...] Active Vital Signs Most recent to oldest [Reference Range]: 1 2 Oxygen Saturation [94-100 %] 99 % 100 % (12/27/21 11:24 PM) (12/27/21 11:11 PM) Pulse Rate [55-90 bpm] 117 bpm 122 bpm *H* *H* (12/27/21 11:24 PM) (12/27/21 11:11 PM) Blood Pressure [90-138/55-84 mm Hg] 127/89 mm Hg (12/27/21 11:24 PM) Respiratory Rate [16-30 br/min] 18 br/min (12/27/21 11:24 PM) Temperature [96.8-100.4 DegF] 98.3 DegF (12/27/21 11:24 PM) Mode of Delivery (Oxygen) Room air Room air (12/27/21 11:24 PM) (12/27/21 11:11 PM) Temperature Route Oral (12/27/21 11:24 PM) Social History Social History Type Response Smoking Status Never (less than 100 in life time) entered on: 10/20/21 Sex
--- OUTSIDE RECORDS SUMMARY | 2022-05-25 19:54 | XMS_ITS ---
:1995 Author Care Team Providers Name Role Phone EMRE HENDRICKSON MDsenior chemical engineer [phone] EMMA JENSEN MD Tinter Photograph [phone] [facility] Primary Care Provider [phone] MICHEAL AKERS MD Broadcast Operations Technician [phone] Allergies Code Code System Name Reaction Severity Status Onset 880238 RxNorm Depakote ? ? Active ? 6211 RxNorm Lactose ? ? Active ? 6722241 RxNorm Latex ? ? Active ? 02443 RxNorm Risperidone ? ? Active ? Shellfish Derived ? ? Active ? Thorazine ? ? Active ? Tomato ? ? Active ? Medications Name Status Start Date Stop Date ? ? acetaminophen 325 mg tablet Active ? Not available TAKE TWO TABLETS BY MOUTH EVERY 6 HOURS NEEDED amoxicillin 875 mg tablet Completed ? 2021 Take 1 tablet every 12 hours by oral route for 5 days. Artificial Tears Active ? Not available 0.5% every four hours PRN Artificial Tears (cmc) Completed ? baclofen 5 mg tablet Active ? Not availab le Take 1 tablet as needed by oral route. Banophen 50 mg capsule Active ? Not avail able Every morning, and PRN (Benadryl) Benadryl Completed ? 03/05/2021 QD am benztropine 0.5 mg tablet Completed ? 2021 Take 1 tablet every day by oral route in the morning. benztropine 1 mg tablet Active ? Not avai lable Take 1 tablet every day by oral route at bedtime. Calcium Antacid 200 mg calcium (500 mg) chewable tablet Active ? Not available TAKE TWO (2) TABLETS FOUR (4) TIMES A DAY BY ORAL ROUTE NEED ED. cholecalciferol (vitamin D3) 125 mcg (5,000 unit) capsule Comple martina ? 02/03/2022 Take 1 capsule every day by oral route. Colace 100 mg capsule Completed ? 08/07/2020 Take 1 capsule twice a day by oral route. colchicine 0.6 mg tablet Completed ? 022 Take 1 tablet twice a day by oral route. docusate sodium 100 mg tablet Active ? No t available Take 1 tablet twice a day by oral route. EpiPen 2-Gonzalo 0.3 mg/0.3 mL injection, auto-injector Active ? Not available Inject once daily as needed FeroSul 325 mg (65 mg iron) tablet Active ? Not available TAKE ONE TABLET BY MOUTH ONCE DAILY fluconazole 150 mg tablet Completed ? 2021 One tablet when received from pharmacy, then repeat 72 hours la robert. FreeStyle Lite Strips Active ? Not availa ble Test blood sugar once daily or as directed by your provider gabapentin 100 mg capsule Active ? Not av ailable Take 1 capsule 3 times a day by oral route. Haldol 10 mg tablet Active ? Not availabl e Take 1 tablet twice a day by oral route. haloperidol 5 mg tablet Active 02/03/2022 Not avai lable Take 1 tablet twice a day by oral route. hydroxyzine HCl 50 mg tablet Completed ? Take 1 tablet by oral route as needed. ibuprofen 200 mg tablet Active ? Not avai lable Take 2 tablets every 4 hours by oral route as needed. ibuprofen 600 mg tablet Completed ? 04/22/20 21 Take 1 tablet every 6 hours by oral route as needed. Icy Hot Max (lidocaine HCl-menthol) 4 %-1 % topical cream Comple martina ? 05/21/2021 APPLY A THIN LAYER TO THE AFFECTED AREA (S) BY TOPICAL ROUTE 2-3 TIMES DAILY NEEDED Imitrex 100 mg tablet Active ? Not availa ble Take as needed by oral route. ketoconazole 2 % topical cream Completed ? 0 05/21/2021 APPLY TO THE AFFECTED AREA(S) BY TOPICAL ROUTE TWICE DAILY Linzess 145 mcg capsule Completed ? 05/21/20 21 Take 1 capsule every day by oral route. lorazepam 0.5 mg tablet Active ? Not avai lable Take 1 tablet every day by oral route in the morning. lorazepam 1 mg tablet Active ? Not availa ble Take 1 tablet every day by oral route at bedtime. magnesium oxide 500 mg tablet Active ? No t available Take 1 tablet every day by oral route. Metamucil Fiber Singles 3.4 gram oral powder packet Active ? Not available Take 1 packet daily with 8 oz of water metformin 500 mg tablet Active ? Not avai lable Take 1 tablet twice a day by oral route. midodrine 5 mg tablet Completed ? 11/01/2021 TID Miralax 17 gram oral powder packet Active ? Not available Take 1 packet every day by oral route as needed for 30 days. olanzapine 10 mg tablet Completed ? 02/20/20 21 TAKE 1 TABLET (10 MG) BY ORAL ROUTE ONCE DAILY @ 3:00 PM olanzapine 15 mg tablet Active ? Not avai lable Take 1 tablet every day by oral route. olanzapine 5 mg tablet Completed ? 1 Take 1 tablet twice a day by oral route as needed. omeprazole 20 mg capsule,delayed release Active ? Not available Take 1 capsule twice a day by oral route. ondansetron HCl 4 mg tablet Active ? Not available Take 1 tablet 3 times a day by oral route as needed for 3 days. oxycodone 5 mg tablet Completed ? 05/05/2022 Take 1 tablet every day by oral route as needed. propranolol 20 mg tablet Active ? Not destiny ilable Take 1 tablet twice a day by oral route. riboflavin (vitamin B2) 400 mg tablet Active ? Not available Take 1 tablet every day by oral route. Saline Mist 0.65 % nasal spray aerosol Active ? Not available Take 1 spray twice a day by nasal route. Use 1 spray in each nostril twice daily. senna 8.6 mg capsule Completed ? 08/05/2021 Take 2 capsules every day by oral route. senna 8.6 mg tablet Active ? Not availabl e TAKE TWO TABLETS BY MOUTH ONCE DAILY Senna-Extra 17.2 mg tablet Completed ? 01/15 Take 1 tablet twice a day by oral route. sucralfate 1 gram tablet Completed ? 022 trazodone 100 mg tablet Active ? Not avai lable Take 1 tablet as needed by oral route. Vitamin C 250 mg tablet Active ? Not avai lable Take 1 tablet twice a day by oral route. Notes: 03/23/2022 - Med list uncertain a t this time. Problems Name Status Onset Date Source ? [...] ? General Surgery Information not avai lable 01/21/2021 XR, Abdomen [facility] (Radiology) [address], [place] [address] ([address]) 01/28/2021 XR, Abdomen [facility] (Radiology) [address], [place] [address] (Work Place) 03/05/2021 CT, Chest, W/ Contrast [facility] [address] [facility] [address], [place] [address] (Work Place) 03/09/2021 CT, Angiogram, Chest, W/ Contrast [facility] [address] [facility] [address] [place], [place] [address] (Work Place) 06/24/2021 MRI, Chest, W/o [facility] [address] [facility] [address], [place] [address] (Work Place) 04/08/2022 MRI, Chest, W/wo Contrast [facility] (Central Scheduling For Imaging And Labs) [address] [place] [address] (Work Place) 12/15/2021 [facility], [facility] [address] [place] [address] (Work Place) 02/03/2022 MRI, Pituitary, W/wo Contrast [facility] (Central Scheduling For Imaging And Labs) [address] [place] [address] (Work Place) Results Lab Results Date Name Specimen Result Interpretation Description Value Range Status Address ? 05/05/2022 Hemoglobin ? Hemoglobin 6.1 ? ? [facility] a1C, a1C Physician Fingerstick Servi elsa: [address] [facility] 03/23/2022 CBC W/ Auto ? Wbc 6.0 3.4-10 Final [facility] Diff x10e3/uL .8 PSC: [address]/ [address], [place] ? ? ? Rbc 4.02 3.77-5 Final [facility] x10e6/uL .28 PSC: 69 x10[address]/ [address], [place] ? ? ? Hemoglobin 11.1 g/dL 11.1-1 Final [facility] 5.9 PSC: 69 g/dL [address], [place] ? ? Below Hematocrit 33.0 % 34.0-4 Final [facility] Low 6.6 % PSC: [address] [place] ? ? ? Mcv 82 fL 79-97 Final [facility] fL PSC: [address] [place] ? ? ? Mch 27.6 pg 26.6-3 Final [facility] 3.0 pg PSC: [address] [place] ? ? ? Mchc 33.6 g/dL 31.5-3 Final [facility] 5.7 PSC: 69 g/dL [address], [place] ? ? ? Rdw 13.7 % 11.7-1 Final [facility] 5.4 % PSC: [address] [place] ? ? ? Platelets 326 150-45 Final [facility] p x10e3/uL 0 PSC: [address], [place] ? ? ? Neutrophils 60 % not Final [facility] orp estab. PSC: [address] % [address] [place] ? ? ? Lymphs 35 % not Final [facility] estab. PSC: [address] [place] ? ? ? Monocytes 5 % not Final [facility] p estab. PSC: [address] [place] ? ? ? Eos 0 % not Final [facility] estab. PSC: [address] [place] ? ? ? Basos 0 % not Final [facility] estab. PSC: [address] [place] ? ? ? Immature line supply ? Cancel [facility] Cells led PSC: [address] [place] ? ? ? Neutrophils 3.5 1.4-7. Final [facility] (Absolute) x10e3/uL 0 PSC: 69 [address]/ [address], [place] ? ? ? Lymphs 2.1 0.7-3. Final [facility] (Absolute) x10e3/uL 1 PSC: 69 [address]/ [address], [place] ? ? ? Monocytes(abs 0.3 0.1-0. Final [facility] olute) x10e3/uL 9 PSC: 69 x[address]/ [address], [place] ? ? ? Eos 0.0 0.0-0. Final [facility] (Absolute) x10e3/uL 4 PSC: 69 [address]/ [address], [place] ? ? ? Baso 0.0 0.0-0. Final [facility] (Absolute) x10e3/uL 2 PSC: 69 [address]/ [address], [place] ? ? ? Immature 0 % not Final [facility] Granulocytes estab. PSC: [address] [place] ? ? ? Immature 0.0 0.0-0. Final [facility] Grans (Abs) x10e3/uL 1 PSC : 69 x[address]/ [address], [place] ? ? ? Nrbc line supply ? Cancel [facility] led PSC: [address] [place] ? ? ? Hematology line supply ? Cancel [facility] Comments: led PSC: [address] [place] 03/23/2022 CMP, Serum or Above Glucose 102 mg/dL 65-99 F inal [facility] Plasma High mg/dL PSC: [address] [place] ? ? ? Bun 9 mg/dL 6-20 Final [facility] mg/dL PSC: [address] [place] ? ? ? Creatinine 0.59 0.57-1 Final [facility] mg/dL .00 PSC: 69 mg/dL [address], [place] ? ? ? Egfr 127 >59 Final [facility] mL/min/1. mL/min PSC: 69 73 /1.[address] [place] ? ? ? BUN/creatinin 15 9-23 Final [facility] e Ratio PSC: [address] [place] ? ? ? Sodium 140 134-14 Final [facility] mmol/L 4 PSC: 69 mmol/L [address], [place] ? ? ? Potassium 4.2 3.5-5. Final [facility] p mmol/L 2 PSC: 69 mmol/L [address], [place] ? ? ? Chloride 105 96-106 Final [facility] mmol/L mmol/L PSC: [address] [place] ? ? ? Carbon 23 mmol/L 20-29 Final [facility] p Dioxide, Total mmol/L PS C: [address] [place] ? ? ? Calcium 9.4 mg/dL 8.7-10 Final [facility] .2 PSC: 69 mg/dL [address], [place] ? ? ? Protein, 6.8 g/dL 6.0-8. Final [facility] Total 5 g/dL PSC: [address] [place] ? ? Below Albumin 3.8 g/dL 3.9-5. Final [facility] p Low 0 g/dL PSC: [address] [place] ? ? ? Globulin, 3.0 g/dL 1.5-4. Final [facility] Total 5 g/dL PSC: [address] [place] ? ? ? A/g Ratio 1.3 1.2-2. Final [facility] p 2 PSC: [address] [place] ? ? ? Bilirubin, 0.3 mg/dL 0.0-1. Final [facility] Total 2 PSC: 69 mg/dL [address], [place] ? ? Above Alkaline 140 IU/L 44-121 Final [facility] High Phosphatase IU/L PSC: [address] [place] ? ? ? Ast (Sgot) 19 IU/L 0-40 Final [facility] or[facility] IU/L PSC: [address] [place] ? ? ? Alt (Sgpt) 17 IU/L 0-32 Final [facility] or[facility] IU/L PSC: [address] [place] 02/03/2022 Lh + FSH, ? Lh 5.9 ? Final [facility] Serum mIU/mL PSC: [address] [place] ? ? ? Fsh 4.7 ? Final [facility] mIU/mL PSC: [address] [place] 02/03/2022 Testosterone, ? Testosterone 40 NG/dL 13-7 1 Final [facility] Free + Total, NG/dL PSC : [address] [place] ? ? ? Free 3.4 pg/mL 0.0-4. Final [facility] Testosterone(d 2 PS C: 69 irect) pg/mL [address], [place] 02/03/2022 TSH, Serum or ? TSH-icma 1.4 uu/mL ? Final [facility] Plasma INC Coagulatio n : [address] [facility] 02/03/2022 Dhea-sulfate, ? DHEA-sulfate 348.0 84.8-3 Final [facility] Serum ug/dL 78.0 PSC: 69 ug/dL [address], [place] 02/03/2022 Prolactin, Above Prolactin 80.0 4.8-23 Final [facility] Serum High NG/mL .3 PSC: 69 Normal NG/mL [address], [place] 02/03/2022 Estradiol, ? Estradiol 8.7 pg/mL ? Fi nal [facility] Serum PSC: [address] [place] 02/03/2022 17-Hydroxyprog ? 17-Oh 11 NG/dL ? Fin al [facility] esterone, QN, Progesterone ([place] Serum Lcms ): [facility] [facility] 02/03/2022 Choriogonadotr ? negative negati Final [facility] opin, Qual, Test, Urine ve PSC: [address] [place] 02/03/2022 Glucose, ? Glucose, 143 ? ? S prosper [facility] Fingerstick, Fingerstick Physician Blood Services: [address] [facility] 02/03/2022 Hemoglobin ? Hemoglobin 6.3 ? ? [facility] a1C, a1C Physician Fingerstick Servi elsa: [address] [facility] 01/04/2022 Testosterone, ? Testosterone 37 NG/dL 13-7 1 Final [facility] Free + Total, NG/dL PSC : [address] [place] ? ? Above Free 4.6 pg/mL 0.0-4. Final [facility] High Testosterone(d 2 PS C: 69 Normal irect) pg/mL [address], [place] 01/04/2022 TSH, ? Tsh 2.290 0.450- Final [facility] Ultra-sensitiv uIU/mL 4.500 PS C: 69 e, Serum uIU/mL [address], [place] 01/04/2022 FSH ? Fsh 6.2 ? Final [facility] p (Follicle-stim mIU/mL PS C: [address] [place] [facility]), [facility], Serum [place] 01/04/2022 HCG, Intact + ? HCG,beta <5 mIU/mL ? Final [facility] Beta Subunit, Subunit,qnt,se PSC: 380 Quant, Serum rum [place] or Plasma [facility] L[facility]2, [place] 01/04/2022 Prolactin, Above Prolactin 83.8 4.8-23 Final [facility] Serum High NG/mL .3 PSC: 69 Normal NG/mL [address], [place] 12/31/2021 CBC W/ Auto ? Wbc 7.1 3.4-10 Final [facility] Diff x10e3/uL .8 PSC: 69 x[address]/ [address], [place] ? ? ? Rbc 4.04 3.77-5 Final [facility] x10e6/uL .28 PSC: 69 x10[address]/ [address], [place] ? ? ? Hemoglobin 11.4 g/dL 11.1-1 Final [facility] 5.9 PSC: 69 g/dL [address], [place] ? ? ? Hematocrit 34.2 % 34.0-4 Final [facility] 6.6 % PSC: [address] [place] ? ? ? Mcv 85 fL 79-97 Final [facility] fL PSC: [address] [place] ? ? ? Mch 28.2 pg 26.6-3 Final [facility] 3.0 pg PSC: [address] [place] ? ? ? Mchc 33.3 g/dL 31.5-3 Final [facility] 5.7 PSC: 69 g/dL [address], [place] ? ? ? Rdw 13.8 % 11.7-1 Final [facility] 5.4 % PSC: [address] [place] ? ? ? Platelets 317 150-45 Final [facility] p x10e3/uL 0 PSC: 69 [address]/ [address], [place] ? ? ? Neutrophils 63 % not Final [facility] or[facility] estab. PSC: [address] % [address] [place] ? ? ? Lymphs 31 % not Final [facility] estab. PSC: [address] % [address], [place] ? ? ? Monocytes 5 % not Final [facility] p estab. PSC: [address] % [address], [place] ? ? ? Eos 0 % not Final [facility] estab. PSC: [address], [place] ? ? ? Basos 0 % not Final [facility] estab. PSC: [address] % [address], [place] ? ? ? Immature line supply ? Cancel [facility] Cells led PSC: [address] [place] ? ? ? Neutrophils 4.5 1.4-7. Final [facility] (Absolute) x10e3/uL 0 PSC: 69 x[address]/ [address], [place] ? ? ? Lymphs 2.2 0.7-3. Final [facility] (Absolute) x10e3/uL 1 PSC: 69 x[address]/ [address], [place] ? ? ? Monocytes(abs 0.4 0.1-0. Final [facility] olute) x10e3/uL 9 PSC: 69 x[address]/ [address], [place] ? ? ? Eos 0.0 0.0-0. Final [facility] (Absolute) x10e3/uL 4 PSC: 69 x[address]/ [address], [place] ? ? ? Baso 0.0 0.0-0. Final [facility] (Absolute) x10e3/uL 2 PSC: 69 [address]/ [address], [place] ? ? ? Immature 1 % not Final [facility] Granulocytes estab. PSC: [address] % [address] [place] ? ? ? Immature 0.0 0.0-0. Final [facility] Grans (Abs) x10e3/uL 1 PSC : 69 x[address]/ [address], [place] ? ? ? Nrbc line supply ? Cancel [facility] led PSC: [address] [place] ? ? ? Hematology line supply ? Cancel [facility] Comments: led PSC: [address] [place] 12/31/2021 Iron + Total ? Iron 265 ug/dL 250-45 Sihrley l [facility] Iron-binding Bind.cap.(TIBC 0 PSC: 69 Capacity ) ug/dL [address], (TIBC), Serum [place] it[place] ? ? ? Uibc 222 ug/dL 131-42 Final [facility] 5 PSC: 69 ug/dL [address], [place] ? ? ? Iron 43 ug/dL 27-159 Final [facility] ug/dL PSC: [address] [place] ? ? ? Iron 16 % 15-55 Final [facility] Saturation % PSC: [address] [place] 12/31/2021 PT/PTT, Plasma ? Inr 1.0 0.9-1. Final [facility] 2 PSC: [address] [place] ? ? ? Prothrombin 10.1 sec 9.1-12 Final [facility] Time .0 sec PSC: [address] [place] ? ? ? Aptt 28 sec 24-33 Final [facility] sec PSC: [address] [place] 12/31/2021 Ferritin, ? Ferritin 97 NG/mL 15-150 Final [facility] Serum or NG/mL PSC: [address] [place] 12/15/2021 Lipid Panel W/ ? Cholesterol, 185 mg/dL 10 0-19 Final [facility] Direct LDL, Total 9 PSC: 69 Serum mg/dL [address], [place] ? ? Above Triglycerides 159 mg/dL 0-149 Final [facility] High mg/dL PSC: [address] [place] ? ? Below HDL 28 mg/dL >39 Final [facility] Low Cholesterol mg/dL PSC: [address] [place] ? ? ? VLDL 29 mg/dL 5-40 Final [facility] Cholesterol mg/dL PSC: [address] [place] ? ? Above LDL Chol Calc 128 mg/dL 0-99 Final [facility] High (Nih) mg/dL PSC: [address] [place] ? ? ? Comment: line supply ? Cancel [facility] led PSC: [address] [place] ? ? Above LDL Chol. 123 mg/dL 0-99 Final [facility] High (Direct) mg/dL PSC: [address] [place] 12/15/2021 Vitamin D, ? Vitamin D, 33.9 30.0-1 Shirley l [facility] 25-Hydroxy, 25-Hydroxy NG/mL 00.0 P SC: 69 Total, Serum NG/mL Christoph Marin 10/12/2021 CBC W/ Auto ? Wbc 5.8 3.4-10 Final [facility] Diff x10e3/uL .8 PSC: 380 x10e3/ [place] [address], [place] ? ? ? Rbc 4.45 3.77-5 Final [facility] x10e6/uL .28 PSC: 380 x10e6/ [place] [address], [place] ? ? ? Hemoglobin 12.2 g/dL 11.1-1 Final [facility] 5.9 PSC: 380 g/dL [address], [place] ? ? ? Hematocrit 37.7 % 34.0-4 Final [facility] 6.6 % PSC: [address], [place] ? ? ? Mcv 85 fL 79-97 Final [facility] fL PSC: [address], [place] ? ? ? Mch 27.4 pg 26.6-3 Final [facility] 3.0 pg PSC: [address], [place] ? ? ? Mchc 32.4 g/dL 31.5-3 Final [facility] 5.7 PSC: 380 g/dL [address], [place] ? ? ? Rdw 12.9 % 11.7-1 Final [facility] 5.4 % PSC: [address], [place] ? ? ? Neutrophils 56 % not Final [facility] or[facility] estab. PSC: [address], [place] ? ? ? Lymphs 36 % not Final [facility] estab. PSC: [address], [place] ? ? ? Monocytes 8 % not Final [facility] p estab. PSC: [address], [place] ? ? ? Eos 0 % not Final [facility] estab. PSC: [address], [place] ? ? ? Basos 0 % not Final [facility] estab. PSC: [address], [place] ? ? ? Immature line supply ? Cancel [facility] Cells led PSC: [address], [place] ? ? ? Neutrophils 3.3 1.4-7. Final [facility] (Absolute) x10e3/uL 0 PSC: 380 x10e3/ [place] [address], [place] ? ? ? Lymphs 2.1 0.7-3. Final [facility] (Absolute) x10e3/uL 1 PSC: 380 x10e3/ [place] [address] [facility], [place] ? ? ? Monocytes(abs 0.4 0.1-0. Final [facility] olute) x10e3/uL 9 PSC: 380 x10e3/ [place] [address], [place] ? ? ? Eos 0.0 0.0-0. Final [facility] (Absolute) x10e3/uL 4 PSC: 380 x10e3/ [place] [address], [place] ? ? ? Baso 0.0 0.0-0. Final [facility] (Absolute) x10e3/uL 2 PSC: 380 x10e3/ [place] [address], [place] ? ? ? Immature line supply ? Cancel [facility] Granulocytes led PSC: [address], [place] ? ? ? Immature line supply ? Cancel [facility] Grans (Abs) led PSC: [address], [place] ? ? ? Nrbc line supply ? Cancel [facility] led PSC: [address], [place] ? ? ? Hematology line supply ? Cancel [facility] Comments: led PSC: [address], [place] 10/12/2021 CMP, Serum or Above Glucose 152 mg/dL 65-99 F inal [facility] Plasma High mg/dL PSC: [address], [place] ? ? ? Bun 12 mg/dL 6-20 Final [facility] mg/dL PSC: [address], [place] ? ? Below Creatinine 0.54 0.57-1 Final [facility] Low mg/dL .00 PSC: 380 Normal mg/dL [address], [place] ? ? ? eGFR If 131 >59 Final [facility] Nonafricn AM mL/min/1. mL/min P SC: 380 73 /1.[address], [place] ? ? ? eGFR If 151 >59 Final [facility] Africn AM mL/min/1. mL/min PSC: 380 73 /1.[address], [place] ? ? ? BUN/creatinin 22 9-23 Final [facility] e Ratio PSC: [address], [place] ? ? ? Sodium 141 134-14 Final [facility] mmol/L 4 PSC: 380 mmol/L [address], [place] ? ? ? Potassium 4.1 3.5-5. Final [facility] mmol/L 2 PSC: 380 mmol/L [address] [facility], [place] ? ? ? Chloride 104 96-106 Final [facility] mmol/L mmol/L PSC: [address], [place] ? ? ? Carbon 23 mmol/L 20-29 Final [facility] p Dioxide, Total mmol/L PS C: [address], [place] ? ? ? Calcium 9.1 mg/dL 8.7-10 Final [facility] .2 PSC: 380 mg/dL [address], [place] ? ? ? Protein, 6.6 g/dL 6.0-8. Final [facility] Total 5 g/dL PSC: [address], [place] ? ? ? Albumin 3.9 g/dL 3.9-5. Final [facility] p 0 g/dL PSC: [address], [place] ? ? ? Globulin, 2.7 g/dL 1.5-4. Final [facility] Total 5 g/dL PSC: [address], [place] ? ? ? A/g Ratio 1.4 1.2-2. Final [facility] p 2 PSC: [address], [place] ? ? ? Bilirubin, 0.2 mg/dL 0.0-1. Final [facility] Total 2 PSC: 380 mg/dL [address], [place] ? ? ? Alkaline 120 IU/L 44-121 Final [facility] Phosphatase IU/L PSC: [address], [place] ? ? ? Ast (Sgot) 16 IU/L 0-40 Final [facility] IU/L PSC: [address], [place] ? ? ? Alt (Sgpt) 23 IU/L 0-32 Final [facility] IU/L PSC: [address], [place] 10/12/2021 Albumin/creati ? Creatinine, 85.3 not Final [facility] nine, Mass Urine mg/dL estab. PSC: 6 9 Ratio, Urine mg/dL [address], [place] ? ? ? Albumin, <3.0 not Final [facility] Urine ug/mL estab. PSC: 69 ug/mL [address], [place] ? ? ? Alb/creat <4 mg/g 0-29 Final [facility] Ratio creat mg/g PSC: [address] [place] 10/12/2021 Testosterone, ? Testosterone 30 NG/dL 13-7 1 Final [facility] Free + Total, NG/dL PSC : [address] [place] ? ? Above Free 4.6 pg/mL 0.0-4. Final [facility] High Testosterone(d 2 PS C: 69 Normal irect) pg/mL [address], [place] 10/12/2021 17-Hydroxyprog ? 14-Baesg-sxqd 17 NG/dL ? Final [facility] esterone, QN, oxyprogesteron INC Serum e Coagulatio n : [address] [facility] 10/12/2021 HbA1C Above Hemoglobin 6.3 % 4.8-5. Final [facility] (Hemoglobin High a1C 6 % PSC: 69 a1C), Blood Normal [address], [place] 10/12/2021 Dhea-sulfate, ? DHEA-sulfate 325.0 84.8-3 Final [facility] Serum ug/dL 78.0 PSC: 69 ug/dL [address], [place] 10/12/2021 FSH ? Fsh 6.5 ? Final [facility] p (Follicle-stim mIU/mL PS C: [address] [place] [facility]), [facility], Serum [place] 10/12/2021 Prolactin, Above Prolactin 104.0 4.8-23 Final [facility] Serum High NG/mL .3 PSC: 69 Normal NG/mL [address], [place] 10/12/2021 Estradiol, ? Estradiol <19.0 ? Final [facility] Serum pg/mL PSC: [address], [place] 10/12/2021 TSH, ? Tsh 1.570 0.450- Final [facility] Ultra-sensitiv uIU/mL 4.500 PS C: 69 e, Serum uIU/mL [address], [place] 09/15/2021 Bacterial [place] ? Atopobium low - 0 ? Final [facility] Vaginosis + Vaginae score PSC: 69 Vaginitis [address], Panel, Vaginal Ra ritan ? ? [place] ? Bvab 2 low - 0 ? Final [facility] score PSC: [address] [place] ? ? [place] ? Megasphaera 1 low - 0 ? Final [facility] score PSC: [address] [place] ? ? [place] ABNORMA Tiffany positive negati Final [facility] L Albicans, IRA ve PSC : [address] [place] ? ? [place] ? Tiffany negative negati Final [facility] p Glabrata, IRA ve PSC : [address] [place] ? ? [place] ? Trich Vag by negative negati Final [facility] IRA ve PSC: [address] [place] ? ? [place] ? Chlamydia negative negati Final [facility] or[facility] Trachomatis, ve PSC: [address] [place] ? ? [place] ? Neisseria negative negati Final [facility] Gonorrhoeae, ve PSC: [address] [place] 09/15/2021 Culture, Urine UC ABNORMA Urine final ? Shirley l [facility] L Culture, report PSC: [address] , [place] ? ? UC ABNORMA Result 1 comment ? Final [facility] L PSC: [address] [place] 09/15/2021 ? HCG Results negative ? ? [facility] Test, Urine Physi tiara Services: [address] [facility] 09/15/2021 Urinalysis, ? Leukocytes Small ? ? In-Office Dipstick Order: Internal Use Only D O Not Attach Compendium DO Not Attach Compendium , Do Not Delete/harjinder g e ? ? ? Nitrate negative ? ? In-Off ice Order: Internal Use Only D O Not Attach Compendium DO Not Attach Compendium , Do Not Delete/harjinder g e ? ? ? Urobilinogen 0.2 ? ? In- Office Order: Internal Use Only D O Not Attach Compendium DO Not Attach Compendium , Do Not Delete/harjinder g e ? ? ? Protein Neg ? ? In-Offic e Order: Internal Use Only D O Not Attach Compendium DO Not Attach Compendium , Do Not Delete/harjinder g e ? ? ? Ph 8 ? ? In-Office Order: Internal Use Only D O Not Attach Compendium DO Not Attach Compendium , Do Not Delete/harjinder g e ? ? ? Blood Neg ? ? In-Office Order: Internal Use Only D O Not Attach Compendium DO Not Attach Compendium , Do Not Delete/harjinder g e ? ? ? Specific 1.010 ? ? In-Offi ce [place] Order: Internal Use Only D O Not Attach Compendium DO Not Attach Compendium , Do Not Delete/harjinder g e ? ? ? Ketone Neg ? ? In-Office Order: Internal Use Only D O Not Attach Compendium DO Not Attach Compendium , Do Not Delete/harjinder g e ? ? ? Billirubin Neg ? ? In-Of fice Order: Internal Use Only D O Not Attach Compendium DO Not Attach Compendium , Do Not Delete/harjinder g e ? ? ? Glucose Neg ? ? In-Offic e Order: Internal Use Only D O Not Attach Compendium DO Not Attach Compendium , Do Not Delete/harjinder g e 05/21/2021 HbA1C Above Hemoglobin 6.9 % 4.8-5. Final [facility] (Hemoglobin High a1C 6 % PSC: 69 a1C), Blood Normal First Christoph Bridges 05/12/2021 Influenza ? Sars-cov-2 not not Final [facility] Virus a + B detected detect Hos pital- and SARS CoV 2 ed [facility]: (COVID-19) and 12 3 Summer RSV RNA Panel, St , IRA+probe, [facility] Res[facility] Spec[facility] ? ? ? Influenza a negative negati Final [facility]- [facility]: [address], [place] ? ? ? Influenza B negative negati Final [facility]- [facility]: [address], [place] ? ? ? Rsv negative negati Final [facility]- [facility]: [address], [place] ? ? ? Note ? ? Final [facility]- [facility]: [address] [facility] 03/31/2021 CMP, Serum or Above Glucose 158 mg/dL 65-99 F inal [facility] Plasma High mg/dL PSC: [address], [place] ? ? ? Bun 14 mg/dL 6-20 Final [facility] mg/dL [facility]SC: [address], [place] ? ? Below Creatinine 0.53 0.57-1 Final [facility] Low mg/dL .00 PSC: 69 Normal mg/dL [address], [place] ? ? ? eGFR If 131 >59 Final [facility] Nonafricn AM mL/min/1. mL/min P SC: 69 73 /1.[address], [place] ? ? ? eGFR If 152 >59 Final [facility] Africn AM mL/min/1. mL/min PSC: 69 73 /1.[address], [place] ? ? Above BUN/creatinin 26 9-23 Final [facility] High e Ratio [facility]: [address], [place] ? ? ? Sodium 141 134-14 Final [facility] mmol/L 4 PSC: 69 mmol/L [address], [place] ? ? ? Potassium 4.4 3.5-5. Final [facility] p mmol/L 2 PSC: 69 mmol/L [address], [place] ? ? ? Chloride 104 96-106 Final [facility] mmol/L mmol/L PSC: [address], [place] ? ? ? Carbon 24 mmol/L 20-29 Final [facility] p Dioxide, Total mmol/L PS C: [address], [place] ? ? ? Calcium 9.2 mg/dL 8.7-10 Final [facility] .2 PSC: 69 mg/dL [address], [place] ? ? ? Protein, 6.8 g/dL 6.0-8. Final [facility] Total 5 g/dL PSC: [address], [place] ? ? Below Albumin 3.7 g/dL 3.9-5. Final [facility] p Low 0 g/dL PSC: [address], [place] ? ? ? Globulin, 3.1 g/dL 1.5-4. Final [facility] Total 5 g/dL PSC: [address], [place] ? ? ? A/g Ratio 1.2 1.2-2. Final [facility] p 2 PSC: [address], [place] ? ? ? Bilirubin, 0.2 mg/dL 0.0-1. Final [facility] Total 2 [facility]SC: 69 mg/dL [address], [place] ? ? Above Alkaline 134 IU/L 48-121 Final [facility] High Phosphatase IU/L PSC: [address], [place] ? ? ? Ast (Sgot) 16 IU/L 0-40 Final [facility] orp IU/L [facility]SC: [address], [place] ? ? ? Alt (Sgpt) 13 IU/L 0-32 Final [facility] orp IU/L PSC: [address], [place] 03/31/2021 Cbc ? Wbc 6.8 3.4-10 Final [facility] p x10e3/uL .8 PSC: 69 x10e3/ [address], uL [place] ? ? ? Rbc 4.52 3.77-5 Final [facility] x10e6/uL .28 PSC: 69 x10e6/ [address], uL [place] ? ? ? Hemoglobin 12.7 g/dL 11.1-1 Final [facility] 5.9 [facility]: 69 g/dL [address], [place] ? ? ? Hematocrit 37.5 % 34.0-4 Final [facility] 6.6 % PSC: [address], [place] ? ? ? Mcv 83 fL 79-97 Final [facility] fL PSC: [address], [place] ? ? ? Mch 28.1 pg 26.6-3 Final [facility] 3.0 pg PSC: [address], [place] ? ? ? Mchc 33.9 g/dL 31.5-3 Final [facility] 5.7 PSC: 69 g/dL [address], [place] ? ? ? Rdw 13.7 % 11.7-1 Final [facility] 5.4 % [facility]SC: [address], [place] ? ? ? Platelets 228 150-45 Final [facility] p x10e3/uL 0 PSC: 69 x10e3/ [address], uL [place] ? ? ? Nrbc line supply ? Cancel [facility] led PSC: [address], [place] 03/31/2021 ESR ? Sedimentation 21 mm/HR 0-32 Fin al [facility] (Erythrocyte Rate-westergre mm/HR PSC: [address], Rate), Blood Rari wagner 03/31/2021 C Reactive ? C-reactive 8 mg/L 0-10 Shirley l [facility] Protein, QN, Protein, Quant mg/L PSC: [address], Plasma [place] 03/02/2021 Cortisol, ? Cortisol 9.01 2.3-19 Final [facility] Serum or Random ug/dL .4 Hospital - Plasma ug/dL [facility]: [address] [facility] ? ? ? Note ? ? Final [facility]- [facility]: [address] [facility] 02/28/2021 Troponin T, ? Troponin T <0.030 ? Fin al [facility] Serum NG/mL Hospital- [facility]: [address] [facility] ? ? ? Note ? ? Final [facility]- [facility]: [address] [facility] 02/28/2021 CBC W/ Auto ? White Blood 7.7 3.9-11 Fi nal [facility] Diff Count x1000/uL .0 Hospital - x1000/ [facility]: uL [address] [facility] ? ? ? Red Blood 4.00 3.70-5 Final [facility] Cell Count mil/uL .10 Hospit al- mil/uL [facility]: [address] [facility] ? ? Low Hemoglobin 11.2 g/dL 11.5-1 Final [facility] 5.0 Hospital- g/dL [facility]: [address] [facility] ? ? Low Hematocrit 32.9 % 34.0-4 Final [facility] 4.0 % Hospital- [facility]: [address] [facility] ? ? ? Mcv 82 fL 80-100 Final [facility] fL Hospital- [facility]: [address] [facility] ? ? ? Mch 28 pg 27-33 Final [facility] pg Hospital- [facility]: [address] [facility] ? ? ? Mchc 34 g/dL 31-36 Final [facility] t g/dL Hospital- [facility]: [address] [facility] ? ? ? Rdw 13.2 % 11.4-1 Final [facility] 4.4 % Hospital- [facility]: [address], [place] ? ? ? Platelet 274 150-45 Final [facility] Count x1000/uL 0 Hospital - x1000/ [facility]: uL [address], [place] ? ? ? Mpv 9.4 fL 7.0-11 Final [facility] .0 fL Hospital- [facility]: [address], [place] ? ? ? Neutrophils 53 % ? Final [facility]- [facility]: [address] , [place] ? ? ? Lymphocytes 41 % ? Final [facility] Hospital- [facility]: [address] , [place] ? ? ? Monocytes 6 % ? Final [facility]- [facility]: [address] , [place] ? ? ? Eosinophils 0 % ? Final [facility] Hospital- [facility]: [address] , [place] ? ? ? Basophils 0 % ? Final [facility]- [facility]: [address] , [place] ? ? ? Neutrophils 4.1 1.8-7. Final [facility] (#) x1000/uL 0 Hospital - x1000/ [facility]: uL [address] , [place] ? ? ? Lymphocytes 3.2 0.7-4. Final [facility] (#) x1000/uL 5 Hospital - x1000/ [facility]: uL [address], [place] ? ? ? Monocytes (#) 0.5 0.1-0. Final [facility] x1000/uL 8 Hospital - x1000/ [facility]: uL [address], [place] ? ? ? Eosinophils 0.0 0.0-0. Final [facility] (#) x1000/uL 4 Hospital - x1000/ [facility]: uL [address], [place] ? ? ? Basophils (#) 0.0 0.0-0. Final [facility] x1000/uL 2 Hospital - x1000/ [facility]: uL [address], [place] ? ? ? Note ? ? Final [facility] Hospital- [facility]: [address] , [place] 02/28/2021 BMP, Serum or High Glucose 141 mg/dL 65-99 F inal [facility] Plasma mg/dL Hospital- [facility]: [address] , [place] ? ? ? Bun 14 mg/dL 5-26 Final [facility] nt mg/dL Hospital- [facility]: [address] , [place] ? ? ? Creatinine 0.57 0.5-1. Final [facility] ncent mg/dL 5 Hospital- mg/dL [facility]: [address] [facility] ? ? ? BUN/creat 25 8-27 Final [facility] Ratio Hospital- [facility]: [address] [facility] ? ? ? Glom Filt 127.9 > 59 Final [facility] Rate, Est mL/min mL/min Hospita l- [facility]: [address] , [place] ? ? ? If 148.3 > 59 Final [facility] -americ mL/min mL/min Ho spital- an [facility]: [address] [facility] ? ? ? Sodium 142 mEq/L 134-14 Final [facility] 4 Hospital- mEq/L [facility]: [address] [facility] ? ? ? Potassium 3.7 mEq/L 3.6-5. Final [place] [id number] Hospital- mEq/L [facility]: [address] [facility] ? ? ? Chloride, 106 mEq/L 96-109 Final [facility] Serum mEq/L Hospital- [facility]: [address] [facility] ? ? ? Carbon 25 mEq/L 20-32 Final [facility] ent Dioxide mEq/L Hospital- [facility]: [address] [facility] ? ? ? Anion Gap 11.0 8-15 Final [facility] Hospital- [facility]: [address] [facility] ? ? ? Calcium 8.7 mg/dL 8.3-10 Final [facility] ncent .0 Hospital- mg/dL [facility]: [address] [facility] ? ? ? Index ? ? Final [facility]- [facility]: [address] [facility] ? ? ? Note ? ? Final [facility]- [facility]: [address] [facility] 02/28/2021 Ethanol, Blood ? Alcohol <10 mg/dL not Final [facility]- ed <10 [facility]: mg/dL [address] [facility] ? ? ? Note ? ? Final [facility]- [facility]: [address] [facility] 02/28/2021 Troponin T, ? Troponin T <0.030 ? Lazaro parada [facility] Serum NG/mL Hospital- [facility]: [address] [facility] ? ? ? Note ? ? Final [facility]- [facility]: [address] [facility] 02/28/2021 Cocaine, ? Cocaine,urine negative neg: F inal Arturo Quantitative <300 Hosp ital- Confirmation, NG/mL Lab angi: Urine [address] [facility] ? ? ? Note ? ? Final [facility]- [facility]: [address] [facility] 02/28/2021 Amphetamines, ? Amphetamines, negative neg : Final [facility] Qualitative, urine <1000 Hosp ital- Urine NG/mL [facility]: [address] [facility] ? ? ? Note ? ? Final [facility]- [facility]: [address] [facility] 02/28/2021 Opiates, ? Opiates,urine negative neg: F [facility]al [facility] Qualitative, <300 Hosp ital- Urine Reflex NG/mL [facility] orp: Confirmation [address] [facility] ? ? ? Note ? ? Final [facility]- [facility]: [address] [facility] 02/28/2021 Benzodiazepine ? Benzodiazepin negative ne g: Final [facility] s, es,urine <200 Hospital - Quantitative NG/mL [facility] orp: Confirmation, [address] [facility] ? ? ? Note ? ? Final [facility]- [facility]: [address] [facility] 02/28/2021 Barbiturates, ? Barbiturates, negative neg : Final [facility] Qualitative, urine <200 Hosp ital- Urine NG/mL [facility]: [address] [facility] ? ? ? Note ? ? Final [facility]- [facility]: [address] [facility] 02/28/2021 Marijuana, ? Cannabinoids, negative neg: Final [facility] Quantitative urine <50 Hosp ital- Confirmation, NG/mL Lab angi: Urine [address] [facility] ? ? ? Note ? ? Final [facility]- [facility]: [address] [facility] 02/27/2021 Troponin T, ? Troponin T <0.030 ? Fin al [facility] Serum NG/mL Hospital- [facility]: [address] [facility] ? ? ? Note ? ? Final [facility]- [facility]: [address] [facility] 02/27/2021 CK (Creatine ? Cpk 39 U/L 24-173 Final [facility] Kinase), U/L Hospital - Total, Serum [facility]: [address] [facility] ? ? ? Note ? ? Final [facility]- [facility]: [address] [facility] 02/27/2021 CBC W/ Auto ? White Blood 7.2 3.9-11 Fi nal [facility] Diff Count x1000/uL .0 Hospital - x1000/ [facility]: uL [address] [facility] ? ? ? Red Blood 4.25 3.70-5 Final [facility] Cell Count mil/uL .10 Hospit al- mil/uL [facility]: [address] [facility] ? ? ? Hemoglobin 11.9 g/dL 11.5-1 Final [facility] 5.0 Hospital- g/dL [facility]: [address] [facility] ? ? ? Hematocrit 34.7 % 34.0-4 Final [facility] 4.0 % Hospital- [facility]: [address] [facility] ? ? ? Mcv 82 fL 80-100 Final [facility] Hospital- [facility]: [address] [facility] ? ? ? Mch 28 pg 27-33 Final [facility]- [facility]: [address] [facility] ? ? ? Mchc 34 g/dL 31-36 Final [facility] t g/dL Hospital- [facility]: [address] [facility] ? ? ? Rdw 13.1 % 11.4-1 Final [facility] 4.4 % Hospital- [facility]: [address] [facility] ? ? ? Platelet 284 150-45 Final [facility] ent Count x1000/uL 0 Hospital - x1000/ [facility]: uL [address] [facility] ? ? ? Mpv 9.0 fL 7.0-11 Final [facility] .0 [place] [facility]- [facility]: [address] [facility] ? ? ? Neutrophils 57 % ? Final [facility]- [facility]: [address] [facility] ? ? ? Lymphocytes 37 % ? Final [facility]- [facility]: [address] [facility] ? ? ? Monocytes 6 % ? Final [facility]- [facility]: [address] [facility] ? ? ? Eosinophils 0 % ? Final [facility]: [address] , [place] ? ? ? Basophils 0 % ? Final [facility] Hospital- [facility]: [address] , [place] ? ? ? Neutrophils 4.1 1.8-7. Final [facility] (#) x1000/uL 0 Hospital - x1000/ [facility]: uL [address] , [place] ? ? ? Lymphocytes 2.7 0.7-4. Final [facility] (#) x1000/uL 5 Hospital - x1000/ [facility]: uL [address], [place] ? ? ? Monocytes (#) 0.4 0.1-0. [address] [facility] [place] x1000/uL 8 Hospital - x1000/ [facility]: u[address] , [place] ? ? ? Eosinophils 0.0 0.0-0. Final [facility] (#) x1000/uL 4 Hospital - x1000/ [facility]: u[address] , [place] ? ? ? Basophils (#) 0.0 0.0-0. Final [facility] x1000/uL 2 Hospital - x1000/ [facility]: u[address] , [place] ? ? ? Note ? ? Final [facility]- [facility]: [address] [facility] 02/27/2021 BMP, Serum or High Glucose 176 mg/dL 65-99 F inal [facility] Plasma mg/dL Hospital- [facility]: [address] [facility] ? ? ? Bun 9 mg/dL 5-26 Final [facility] t mg/dL Hospital- [facility]: [address] [facility] ? ? ? Creatinine 0.64 0.5-1. Final Vi ncent mg/dL 5 Hospital- mg/dL [facility]: [address] [facility] ? ? ? BUN/creat 14 8-27 Final [facility] Ratio Hospital- [facility]: [address] [facility] ? ? ? Glom Filt 123.2 > 59 Final [facility] Rate, Est mL/min mL/min Hospita l- [facility]: [address] [facility] ? ? ? If 142.7 > 59 Final [facility] -americ mL/min mL/min Ho spital- an [facility]: [address] [facility] ? ? ? Sodium 143 mEq/L 134-14 Final [facility] 4 Hospital- mEq/L [facility]: [address] [facility] ? ? ? Potassium 3.6 mEq/L 3.6-5. Final [facility] 6 Hospital- mEq/L [facility]: [address] [facility] ? ? ? Chloride, 106 mEq/L 96-109 Final [facility] Serum mEq/L Hospital- [facility]: [address] [facility] ? ? ? Carbon 24 mEq/L 20-32 Final [facility] ent Dioxide mEq/L Hospital- [facility]: [address] [facility] ? ? ? Anion Gap 13.0 8-[address] [facility]- [facility]: [address] [facility] ? ? ? Calcium 9.2 mg/dL 8.3-10 [facility]- mg[facility]dL [facility]: [address] [facility] ? ? ? Index ? ? Final [facility]- [facility]: [address] [facility] ? ? ? Note ? ? Final [facility]- [facility]: [address] [facility] 02/27/2021 Magnesium, ? Magnesium 1.7 mg/dL 1.6-2. Fi nal [facility] Serum or 6 Hospital - Plasma mg/dL [facility]: [address] [facility] ? ? ? Index ? ? Final [facility]- [facility]: [address] [facility] ? ? ? Note ? ? Final [facility]- [facility]: [address] [facility] 02/27/2021 Phosphorus, ? Phosphorus 3.8 mg/dL 2.5-4. Final [facility] Serum or 5 Hospital - Plasma mg/dL [facility]: [address] [facility] ? ? ? Index ? ? Final [facility]- [facility]: [address] [facility] ? ? ? Note ? ? Final [facility]- [facility]: [address] [facility] 02/27/2021 TSH, Serum or ? TSH, 2.97 0.450- Final [facility] Plasma Thyrotropin uu/mL 4.500 Hospi saulo- uu/mL [facility]: [address] [facility] ? ? ? Note ? ? Final [facility]- [facility]: [address] [facility] 02/24/2021 BMP, Serum or High Glucose 105 mg/dL 65-99 F inal [facility] Plasma mg/dL Hospital- [facility]: [address] [facility] ? ? ? Bun 9 mg/dL 5-26 Final [facility] t mg/dL Hospital- [facility]: [address] [facility] ? ? Low Creatinine 0.49 0.5-1. Final [facility] ncent mg/dL 5 Hospital- mg/dL [facility]: [address] [facility] ? ? ? BUN/creat 18 8-27 Final [facility] Ratio Hospital- [facility]: [address] [facility] ? ? ? Glom Filt 134.5 > 59 Final [facility] Rate, Est mL/min mL/min Hospita l- [facility]: [address] [facility] ? ? ? If 155.8 > 59 Final [facility] -americ mL/min mL/min Ho spital- an [facility]: [address] [facility] ? ? ? Sodium 138 mEq/L 134-14 Final [facility] 4 Hospital- mEq/L [facility]: [address] [facility] ? ? ? Potassium 4.2 mEq/L 3.6-5. Final [facility] 6 Hospital- mEq/L [facility]: [address] [facility] ? ? ? Chloride, 106 mEq/L 96-109 Final [facility] Serum mEq/L Hospital- [facility]: [address] [facility] ? ? ? Carbon 23 mEq/L 20-32 Final [facility] ent Dioxide mEq/L Hospital- [facility]: [address] [facility] ? ? ? Anion Gap 9.0 8-15 Final [facility] Hospital- [facility]: [address] [facility] ? ? ? Calcium 8.9 mg/dL 8.3-10 Final [facility] ncent .0 Hospital- mg/dL [facility]: [address] [facility] ? ? ? Index ? ? Final [facility]- [facility]: [address] [facility] ? ? ? Note ? ? Final [facility]- [facility]: [address] [facility] 02/23/2021 Troponin T, ? Troponin T <0.030 ? Fin karma [facility] Serum NG/mL Hospital- [facility]: [address] [facility] ? ? ? Note ? ? Final [facility]- [facility]: [address] [facility] 02/23/2021 Magnesium, ? Magnesium 1.7 mg/dL 1.6-2. Fi [facility] Serum or 6 Hospital - Plasma mg/dL [facility]: [address] [facility] ? ? ? Note ? ? Final [facility]- [facility]: [address] [facility] 02/23/2021 Phosphorus, ? Phosphorus 3.4 mg/dL 2.5-4. Final [facility] Serum or 5 Hospital - Plasma mg/dL [facility]: [address] [facility] ? ? ? Note ? ? Final [facility]- [facility]: [address] [facility] 02/23/2021 TSH, Serum or ? TSH, 2.54 0.450- Final [facility] Plasma Thyrotropin uu/mL 4.500 Hospi saulo- uu/mL [facility]: [address] [facility] ? ? ? Note ? ? Final [facility]- [facility]: [address] [facility] 02/23/2021 CBC W/ Auto ? White Blood 7.5 3.9-11 Fi [facility] Diff Count x1000/uL .0 Hospital - x1000/ [facility]: uL [address] [facility] ? ? ? Red Blood 4.18 3.70-5 Final [facility] Cell Count mil/uL .10 Hospit al- mil/uL [facility]: [address] [facility] ? ? ? Hemoglobin 11.6 g/dL 11.5-1 Final [facility] 5.0 Hospital- g/dL [facility]: [address] [facility] ? ? ? Hematocrit 35.2 % 34.0-4 Final [facility] 4.0 % Hospital- [facility]: [address] [facility] ? ? ? Mcv 84 fL 80-100 Final [facility] fL Hospital- [facility]: [address] [facility] ? ? ? Mch 28 pg 27-33 Final [facility] pg Hospital- [facility]: [address] [facility] ? ? ? Mchc 33 g/dL 31-36 Final [facility] t g/dL Hospital- [facility]: [address] [facility] ? ? ? Rdw 13.1 % 11.4-1 Final [facility] 4.4 % Hospital- [facility]: [address], [place] ? ? ? Platelet 326 150-45 Final [facility] Count x1000/uL 0 Hospital - x1000/ [facility]: uL [address], [place] ? ? ? Mpv 9.9 fL 7.0-11 Final [facility] .0 fL Hospital- [facility]: [address], [place] ? ? ? Neutrophils 58 % ? Final [facility]- [facility]: [address], [place] ? ? ? Lymphocytes 37 % ? Final [facility] Hospital- [facility]: [address], [place] ? ? ? Monocytes 5 % ? Final [facility]- [facility]: [address], [place] ? ? ? Eosinophils 0 % ? Final [facility]- [facility]: [address], [place] ? ? ? Basophils 0 % ? Final [facility]: [address], [place] ? ? ? Neutrophils 4.4 1.8-7. Final [facility] (#) x1000/uL 0 Hospital - x1000/ [facility]: uL [address], [place] ? ? ? Lymphocytes 2.8 0.7-4. Final [facility] (#) x1000/uL 5 Hospital - x1000/ [facility]: uL [address], [place] ? ? ? Monocytes (#) 0.4 0.1-0. Final [facility] x1000/uL 8 Hospital - x1000/ [facility]: uL [address], [place] ? ? ? Eosinophils 0.0 0.0-0. Final [facility] (#) x1000/uL 4 Hospital - x1000/ [facility]: uL [address], [place] ? ? ? Basophils (#) 0.0 0.0-0. Final [facility] x1000/uL 2 Hospital - x1000/ [facility]: uL [address], [place] ? ? ? Note ? ? Final [facility]- [facility]: [address], [place] 02/23/2021 D-dimer, ? D-dimer,quant 0.28 mg/L less Final [facility] Quant, Plasma itative feu than Ho spital- 0.5 [facility]: mg/L [address] [facility] ? ? ? Note ? ? Final [facility]- [facility]: [address] [facility] 02/23/2021 BMP, Serum or High Glucose 140 mg/dL 65-99 F inal [facility] Plasma mg/dL Hospital- [facility]: [address] [facility] ? ? ? Bun 8 mg/dL 5-26 Final [facility] t mg/dL Hospital- [facility]: [address] [facility] ? ? Low Creatinine 0.47 0.5-1. Final [facility] ncent mg/dL 5 Hospital- mg/dL [facility]: [address] [facility] ? ? ? BUN/creat 17 8-27 Final [facility] Hospital- [facility]: [address] [facility] ? ? ? Glom Filt 136.3 > 59 Final [facility] Rate, Est mL/min mL/min Hospita l- [facility]: [address] [facility] ? ? ? If 158.0 > 59 Final [facility] -americ mL/min mL/min Ho spital- an [facility]: [address] [facility] ? ? ? Sodium 143 mEq/L 134-14 Final [facility] 4 Hospital- mEq/L [facility]: [address] [facility] ? ? ? Potassium 3.9 mEq/L 3.6-5. Final [facility] 6 Hospital- mEq/L [facility]: [address] [facility] ? ? ? Chloride, 106 mEq/L 96-109 Final [facility] Serum mEq/L Hospital- [facility]: [address] [facility] ? ? ? Carbon 27 mEq/L 20-32 Final [facility] ent Dioxide mEq/L Hospital- [facility]: [address] [facility] ? ? ? Anion Gap 10.0 8-[address] [facility]- [facility]: [address] [facility] ? ? ? Calcium 9.3 mg/dL 8.3-10 Final [facility] ncent .0 Hospital- mg/dL [facility]: [address] [facility] ? ? ? Note ? ? Final [facility]- [facility]: [address] [facility] 02/15/2021 CBC W/ Auto ? White Blood 5.4 3.9-11 Fi nal [facility] Diff Count x1000/uL .0 Hospital - x1000/ [facility]: uL [address] , [place] ? ? ? Red Blood 4.21 3.70-5 Final [facility] Cell Count mil/uL .10 Hospit al- mil/uL [facility]: [address] , [place] ? ? ? Hemoglobin 11.7 g/dL 11.5-1 Final [facility] 5.0 Hospital- g/dL [facility]: [address] , [place] ? ? ? Hematocrit 35.0 % 34.0-4 Final [facility] 4.0 % Hospital- [facility]: [address] , [place] ? ? ? Mcv 83 fL 80-100 Final [facility] Hospital- [facility]: [address] [facility] ? ? ? Mch 28 pg 27-33 Final [facility] pg Hospital- [facility]: [address] [facility] ? ? ? Mchc 33 g/dL 31-36 Final [facility] t g/dL Hospital- [facility]: [address] [facility] ? ? ? Rdw 13.3 % 11.4-1 Final [facility] 4.4 % Hospital- [facility]: [address] , [place] ? ? ? Platelet 246 150-45 Final [facility] ent Count x1000/uL 0 Hospital - x1000/ [facility]: uL [address] , [place] ? ? ? Mpv 10.2 fL 7.0-11 Final [facility] t .0 [place] [facility]- [facility]: [address] , [place] ? ? ? Neutrophils 48 % ? Final [facility]- [facility]: [address] [facility] ? ? Lymphocytes 45 % ? Final [facility]- [facility]: [address] , [place] ? ? ? Monocytes 7 % ? Final [facility]- [facility]: [address] , [place] ? ? ? Eosinophils 0 % ? Final [facility]- [facility]: [address] , [place] ? ? ? Basophils 0 % ? Final [facility]- [facility]: [address] [facility] ? ? ? Neutrophils 2.6 1.8-7. Final [facility] (#) x1000/uL 0 Hospital - x1000/ [facility]: uL [address], [place] ? ? ? Lymphocytes 2.4 0.7-4. Final [facility] (#) x1000/uL 5 Hospital - x1000/ [facility]: uL [address], [place] ? ? ? Monocytes (#) 0.4 0.1-0. Final [facility] - x[facility]/ [facility]: uL [address], [place] ? ? ? Eosinophils 0.0 0.0-0. Final [facility] (#) x1000/uL 4 Hospital - x1000/ [facility]: uL [address], [place] ? ? ? Basophils (#) 0.0 0.0-0. Final [facility] - x1000/ [facility]: uL [address] , [place] ? ? ? Note ? ? Final [facility]- [facility]: [address] [facility] 02/15/2021 BMP, Serum or ? Glucose 90 mg/dL 65-99 Fi nal [facility] Plasma mg/dL Hospital- [facility]: [address] , [place] ? ? ? Bun 13 mg/dL 5-26 Final [facility] nt mg/dL Hospital- [facility]: [address] [facility] ? ? ? Creatinine 0.59 0.5-1. Final [facility] ncent mg/dL 5 Hospital- mg/dL [facility]: [address] , [place] ? ? ? BUN/creat 22 - Final [facility] Ratio Hospital- [facility]: [address] [facility] ? ? ? Glom Filt 126.5 > 59 Final [facility] Rate, Est mL/min mL/min Hospita l- [facility]: [address] , [place] ? ? ? If 146.6 > 59 Final [facility] -americ mL/min mL/min Ho spital- an [facility]: [address] , [place] ? ? ? Sodium 140 mEq/L 134-14 Final [facility] 4 Hospital- mEq/L [facility]: [address] [facility] ? ? ? Potassium 4.2 mEq/L 3.6-5. Final [facility] 6 Hospital- mEq/L [facility] [address] [facility] ? ? ? Chloride, 104 mEq/L 96-109 Final [facility] Serum mEq/L Hospital- [facility]: [address] [facility] ? ? ? Carbon 24 mEq/L 20-32 Final [facility] ent Dioxide mEq/L Hospital- [facility]: [address] [facility] ? ? ? Anion Gap 12.0 8-[address] [facility]- [facility]: [address] [facility] ? ? ? Calcium 9.4 mg/dL 8.3-10 [facility]: [address] [facility] ? ? ? Index ? ? Final [facility]- [facility]: [address] [facility] ? ? ? Note ? ? Final [facility]- [facility]: [address] [facility] 02/14/2021 Lipase, Serum ? Lipase 17 U/L 0-59 Final [facility] or Plasma U/L Hospita l- [facility]: [address] [facility] ? ? ? Note ? ? Final [facility]- [facility]: [address] [facility] 02/14/2021 CBC W/ Auto ? White Blood 6.7 3.9-11 Fi nal [facility] Diff Count x1000/uL .0 Hospital - x1000/ [facility]: uL [address] [facility] ? ? ? Red Blood 4.20 3.70-5 Final [facility] Cell Count mil/uL .10 Hospit al- mil/uL [facility]: [address] [facility] ? ? ? Hemoglobin 11.5 g/dL 11.5-1 Final [facility] 5.0 Hospital- g/dL [facility]: [address] [facility] ? ? ? Hematocrit 35.7 % 34.0-4 Final [facility] 4.0 % Hospital- [facility]: [address] [facility] ? ? ? Mcv 85 fL 80-100 Final [facility] fL Hospital- [facility]: [address] [facility] ? ? ? Mch 27 pg 27-33 Final [facility] pg Hospital- [facility]: [address] [facility] ? ? ? Mchc 32 g/dL 31-36 Final [facility] t g/dL Hospital- [facility]: [address] [facility] ? ? ? Rdw 13.5 % 11.4-1 Final [facility] 4.4 % Hospital- [facility]: [address] , [place] ? ? ? Platelet 320 150-45 Final [facility] Count x1000/uL 0 Hospital - x1000/ [facility]: uL [address] , [place] ? ? ? Mpv 9.6 fL 7.0-11 Final [facility] .0 fL Hospital- [facility]: [address] , [place] ? ? ? Neutrophils 53 % ? Final [facility]- [facility]: [address] , [place] ? ? ? Lymphocytes 41 % ? Final [facility]- [facility]: [address] , [place] ? ? ? Monocytes 6 % ? Final [facility]- [facility]: [address] , [place] ? ? ? Eosinophils 0 % ? Final [facility]- [facility]: [address] , [place] ? ? ? Basophils 0 % ? Final [facility]- [facility]: [address] , [place] ? ? ? Neutrophils 3.6 1.8-7. Final [facility] (#) x1000/uL 0 Hospital - x1000/ [facility]: uL [address] , [place] ? ? ? Lymphocytes 2.7 0.7-4. Final [facility] (#) x1000/uL 5 Hospital - x1000/ [facility]: uL [address] , [place] ? ? ? Monocytes (#) 0.4 0.1-0. Final [facility] x1000/uL 8 Hospital - x1000/ [facility]: u[address] , [place] ? ? ? Eosinophils 0.0 0.0-0. Final [facility] (#) x1000/uL 4 Hospital - x1000/ [facility]: uL [address] , [place] ? ? ? Basophils (#) 0.0 0.0-0. Final [facility] x1000/uL 2 Hospital - x1000/ [facility]: uL [address] , [place] ? ? ? Note ? ? Final [facility]- [facility]: [address] , [place] 02/14/2021 BMP, Serum or High Glucose 107 mg/dL 65-99 F inal [facility] Plasma mg/dL Hospital- [facility]: [address] , [place] ? ? ? Bun 10 mg/dL 01-14 Final [facility] nt mg/dL Hospital- [facility]: [address] [facility] ? ? ? Creatinine 0.56 0.5-1. Final [facility] ncent mg/dL 5 Hospital- mg/dL [facility]: [address] [facility] ? ? ? BUN/creat 18 8-27 Final [facility] Ratio Hospital- [facility]: [address] [facility] ? ? ? Glom Filt 128.7 > 59 Final [facility] Rate, Est mL/min mL/min Hospita l- [facility]: [address] [facility] ? ? ? If 149.1 > 59 Final [facility] -americ mL/min mL/min Ho spital- an [facility]: [address] [facility] ? ? ? Sodium 142 mEq/L 134-14 Final [facility] 4 Hospital- mEq/L [facility]: [address] [facility] ? ? ? Potassium 3.8 mEq/L 3.6-5. Final [facility] 6 Hospital- mEq/L [facility]: [address] [facility] ? ? ? Chloride, 107 mEq/L 96-109 Final [facility] Serum mEq/L Hospital- [facility]: [address] [facility] ? ? ? Carbon 25 mEq/L 20-32 Final [facility] ent Dioxide mEq/L Hospital- [facility]: [address] [facility] ? ? ? Anion Gap 10.0 8-15 Final [facility] Hospital- [facility]: [address] [facility] ? ? ? Calcium 9.3 mg/dL 8.3-10 Final [facility] ncent .0 Hospital- mg/dL [facility]: [address] [facility] ? ? ? Note ? ? Final [facility]- [facility]: [address] [facility] 02/14/2021 Hepatic ? Total Protein 6.8 g/dL 6.0-8. Fi nal [facility] Function 5 g/dL Hospital - Panel, Serum [facility]: [address] [facility] ? ? ? Albumin 3.7 g/dL 3.5-5. Final [facility] 5 g/dL Hospital- [facility]: [address] [facility] ? ? ? Bilirubin, 0.4 mg/dL 0.1-1. Final [facility] Total 2 Hospital- mg/dL [facility]: [address] [facility] ? ? ? Bilirubin, <0.2 0.0-0. Final [facility] mg/dL 4 Hospital- mg/dL [facility]: [address] [facility] ? ? ? Alkaline 124 U/L 25-150 Final [facility] Phosphatase U/L Hospi saulo- [facility]: [address] [facility] ? ? ? Alt (Sgpt) 17 U/L 0-32 Final [facility] ncent U/L Hospital- [facility]: [address] [facility] ? ? ? Ast (Sgot) 13 U/L 0-40 [facility]: [address] [facility] ? ? ? Note ? ? Final [facility]- [facility]: [address] [facility] 02/13/2021 Cbc ? White Blood 6.2 3.9-11 Final [facility] Count x1000/uL .0 Hospital - x1000/ [facility]: uL [address] [facility] ? ? ? Red Blood 4.07 3.70-5 Final [facility] Cell Count mil/uL .10 Hospit al- mil/uL [facility]: [address] [facility] ? ? Low Hemoglobin 11.4 g/dL 11.5-1 Final [facility] 5.0 Hospital- g/dL [facility]: [address] [facility] ? ? ? Hematocrit 35.0 % 34.0-4 Final [facility] 4.0 % Hospital- [facility]: [address] [facility] ? ? ? Mcv 86 fL 80-100 Final [facility] fL Hospital- [facility]: [address] [facility] ? ? ? Mch 28 pg 27-33 Final [facility] pg Hospital- [facility]: [address] [facility] ? ? ? Mchc 33 g/dL 31-36 Final [facility] t g/dL Hospital- [facility]: [address] [facility] ? ? ? Rdw 13.4 % 11.4-1 Final [facility] 4.4 % Hospital- [facility]: [address] [facility] ? ? ? Platelet 297 150-45 Final [facility] ent Count x1000/uL 0 Hospital - x1000/ [facility]: uL [address], [place] ? ? ? Note ? ? Final [facility]- [facility]: [address] [facility] 02/13/2021 BMP, Serum or High Glucose 141 mg/dL 65-99 F inal [facility] Plasma mg/dL Hospital- [facility]: [address] [facility] ? ? ? Bun 14 mg/dL 5-26 Final [facility] nt mg/dL Hospital- [facility]: [address] [facility] ? ? ? Creatinine 0.55 0.5-1. Final [facility] ncent mg/dL 5 Hospital- mg/dL [facility]: [address] [facility] ? ? ? BUN/creat 25 8-27 Final [facility] Ratio Hospital- [facility]: [address] [facility] ? ? ? Glom Filt 129.5 > 59 Final [facility] Rate, Est mL/min mL/min Hospita l- [facility]: [address] [facility] ? ? ? If 150.0 > 59 Final [facility] -americ mL/min mL/min Ho spital- an [facility]: [address] [facility] ? ? ? Sodium 139 mEq/L 134-14 Final [facility] 4 Hospital- mEq/L [facility]: [address] [facility] ? ? ? Potassium 3.9 mEq/L 3.6-5. Final [facility] 6 Hospital- mEq/L [facility]: [address] [facility] ? ? ? Chloride, 106 mEq/L 96-109 Final [facility] Serum mEq/L Hospital- [facility]: [address] [facility] ? ? ? Carbon 23 mEq/L 20-32 Final [facility] ent Dioxide mEq/L Hospital- [facility]: [address] [facility] ? ? ? Anion Gap 10.0 8-[address] [facility]- [facility]: [address] [facility] ? ? ? Calcium 9.0 mg/dL 8.3-10 Final [facility] ncent .0 Hospital- mg/dL [facility]: [address] [facility] ? ? ? Index ? ? Final [facility]- [facility]: [address] [facility] ? ? ? Note ? ? Final [facility]- [facility]: [address] [facility] 02/12/2021 Troponin T, ? Troponin T <0.030 ? Fin karma [facility] Serum NG/mL Hospital- [facility]: [address] [facility] ? ? ? Note ? ? Final [facility]- [facility]: [address] [facility] 02/12/2021 HbA1C ? Hemoglobin 5.8 % ? Final [facility] (Hemoglobin a1C [facility]- a1C), Blood [facility]: [address] [facility] ? ? ? Estimated 120 mg/dL ? Final [facility] Average Hospital- Glucose [facility]: [address] [facility] ? ? ? Note ? ? Final [facility] Hospital- [facility]: [address] [facility] 02/12/2021 Lipid Panel, ? Cholesterol, 179 mg/dL 100- 19 Final [facility] Serum Total 9 Hospital- mg/dL [facility]: [address] [facility] ? ? High Triglycerides 150 mg/dL 0-149 Final [facility] mg/dL Hospital- [facility]: [address] [facility] ? ? Low Cholesterol, 34 mg/dL 40-59 Final [facility] HDL (Direct) mg/dL Hosp ital- [facility]: [address] [facility] ? ? High Cholesterol, 115 mg/dL 0-99 Final [facility] LDL (Calc) mg/dL Hospit al- [facility]: [address] [facility] ? ? High chol/HDL 5.26 0.0-4. Final [facility] ent Ratio 4 Hospital- [facility]: [address] [facility] ? ? High CHD Relative 1.4 x avg avg Final [facility] Risk Ratio risk = Hospit al- 1.0 x [facility]: avg [address] [facility] ? ? High LDL/HDL Ratio 3.4 0.0-3. Final [facility] 2 Hospital- [facility]: [address] [facility] ? ? High CHD Relative 1.1 x avg avg Final [facility] Risk Ratio risk = Hospit al- 1.0 x [facility]: avg [address] [facility] ? ? ? Note ? ? Final [facility]- [facility]: [address] [facility] 02/11/2021 Troponin T, ? Troponin T <0.030 ? Lazaro parada [facility] Serum NG/mL Hospital- [facility]: [address] [facility] ? ? ? Note ? ? Final [facility]- [facility]: [address] [facility] 02/11/2021 CK (Creatine ? Cpk 47 U/L 24-173 Final [facility] Kinase), U/L Hospital - Total, Serum [facility]: [address] [facility] ? ? ? Note ? ? Final [facility]- [facility]: [address] [facility] 02/11/2021 Magnesium, ? Magnesium 1.6 mg/dL 1.6-2. Fi nal [facility] Serum or 6 Hospital - Plasma mg/dL [facility]: [address] [facility] ? ? ? Index ? ? Final [facility]- [facility]: [address] [facility] ? ? ? Note ? ? Final [facility]- [facility]: [address] [facility] 02/11/2021 TSH, Serum or ? TSH, 3.01 0.450- Final [facility] Plasma Thyrotropin uu/mL 4.500 Hospi saulo- uu/mL [facility]: [address] [facility] ? ? ? Note ? ? Final [facility]- [facility]: [address] [facility] 02/11/2021 CBC W/ Auto ? White Blood 9.6 3.9-11 [facility] Diff Count x1000/uL .0 Hospital - x1000/ [facility]: uL [address] [facility] ? ? ? Red Blood 4.50 3.70-5 Final [facility] Cell Count mil/uL .10 Hospit al- mil/uL [facility]: [address] [facility] ? ? ? Hemoglobin 12.8 g/dL 11.5-1 Final [facility] 5.0 Hospital- g/dL [facility]: [address] [facility] ? ? ? Hematocrit 37.0 % 34.0-4 [facility] 4.0 % Hospital- [facility]: [address] [facility] ? ? ? Mcv 82 fL 80-100 Final [facility] fL Hospital- [facility]: [address] [facility] ? ? ? Mch 28 pg 27-33 Final [facility] pg Hospital- [facility]: [address] [facility] ? ? ? Mchc 35 g/dL 31-36 Final [facility] t g/dL Hospital- [facility]: [address] , [place] ? ? ? Rdw 13.3 % 11.4-1 Final [facility] 4.4 % Hospital- [facility]: [address] , [place] ? ? ? Platelet 317 150-45 Final [facility] Count x1000/uL 0 Hospital - x1000/ [facility]: uL [address] , [place] ? ? ? Mpv 9.3 fL 7.0-11 Final [facility] .0 fL Hospital- [facility]: [address] , [place] ? ? ? Neutrophils 58 % ? Final [facility] Hospital- [facility]: [address] , [place] ? ? ? Lymphocytes 36 % ? Final [facility]- [facility]: [address] , [place] ? ? ? Monocytes 6 % ? Final [facility]- [facility]: [address] , [place] ? ? ? Eosinophils 0 % ? Final [facility]- [facility]: [address] , [place] ? ? ? Basophils 0 % ? Final [facility]- [facility]: [address] , [place] ? ? ? Neutrophils 5.6 1.8-7. Final [facility] (#) x1000/uL 0 Hospital - x1000/ [facility]: uL [address], [place] ? ? ? Lymphocytes 3.5 0.7-4. Final [facility] (#) x1000/uL 5 Hospital - x1000/ [facility]: uL [address], [place] ? ? ? Monocytes (#) 0.6 0.1-0. Final [facility] x1000/uL 8 Hospital - x1000/ [facility]: uL [address], [place] ? ? ? Eosinophils 0.0 0.0-0. Final [facility] (#) x1000/uL 4 Hospital - x1000/ [facility]: uL [address], [place] ? ? ? Basophils (#) 0.0 0.0-0. Final [facility] x1000/uL 2 Hospital - x1000/ [facility]: uL [address], [place] ? ? ? Note ? ? Final [facility]- [facility]: [address], [place] 02/11/2021 BMP, Serum or High Glucose 190 mg/dL 65-99 F inal [facility] Plasma mg/dL Hospital- [facility]: [address] [facility] ? ? ? Bun 15 mg/dL 5-26 Final [facility] nt mg/dL Hospital- [facility]: [address] [facility] ? ? ? Creatinine 0.63 0.5-1. Final [facility] ncent mg/dL 5 Hospital- mg/dL [facility]: [address] [facility] ? ? ? BUN/creat 24 8-27 Final [facility] Ratio Hospital- [facility]: [address] [facility] ? ? ? Glom Filt 123.8 > 59 Final [facility] Rate, Est mL/min mL/min Hospita l- [facility]: [address] [facility] ? ? ? If 143.5 > 59 Final [facility] -americ mL/min mL/min Ho spital- an [facility]: [address] [facility] ? ? ? Sodium 140 mEq/L 134-14 Final [facility] 4 Hospital- mEq/L [facility]: [address] [facility] ? ? ? Potassium 3.9 mEq/L 3.6-5. Final [facility] 6 Hospital- mEq/L [facility]: [address] [facility] ? ? ? Chloride, 106 mEq/L 96-109 Final [facility] Serum mEq/L Hospital- [facility]: [address] [facility] ? ? ? Carbon 22 mEq/L 20-32 Final [facility] Dioxide mEq/L Hospital- [facility]: [address] [facility] ? ? ? Anion Gap 12.0 8-15 Final [facility] Hospital- [facility]: [address] [facility] ? ? ? Calcium 9.2 mg/dL 8.3-10 Final [facility] ncent .0 Hospital- mg/dL [facility]: [address] [facility] ? ? ? Index ? ? Final [facility]- [facility]: [address] [facility] ? ? ? Note ? ? Final [facility]- [facility]: [address] [facility] 01/15/2021 Glucose, ? Blood 114 ? ? [facility] Fingerstick, Glucose: mg/dl [facility] ([place]) : 9 Franky Chamorro Lb 4 Oli 11/27/2020 BMP, Serum or ? Glucose 97 mg/dL 65-99 Fi nal [facility] Plasma mg/dL [facility]: [address], [place] ? ? ? Bun 9 mg/dL 6-20 Final [facility] mg/dL [facility]: [address], [place] ? ? Below Creatinine 0.50 0.57-1 Final [facility] Low mg/dL .00 [facility]: 69 Normal mg/dL [address], [place] ? ? ? eGFR If 134 >59 Final [facility] Nonafricn AM mL/min/1. mL/min P SC: [address], [place] ? ? ? eGFR If 154 >59 Final [facility] Africn AM mL/min/1. mL/min [facility]: [address], [place] ? ? ? BUN/creatinin 18 9-23 Final [facility] Ratio [facility]: [address], [place] ? ? ? Sodium 141 134-14 Final [facility] mmol/L 4 [facility]: 69 mmol/L [address], [place] ? ? ? Potassium 4.2 3.5-5. Final [facility] mmol/L 2 [facility]: 69 mmol/L [address], [place] ? ? ? Chloride 102 96-106 Final [facility] mmol/L mmol/L [facility]: [address], [place] ? ? ? Carbon 24 mmol/L 20-29 Final [facility] p Dioxide, Total mmol/L PS C: [address], [place] ? ? ? Calcium 9.3 mg/dL 8.7-10 Final [facility] .2 [facility]: 69 mg/dL [address], [place] 11/27/2020 Bacterial [facility] ? Tiffany negative negati Final [facility] Vaginosis and Species ve PS C: [address], Panel, DNA Rarita n Probe, Vaginal Fluid ? ? [facility] ? Gardnerella negative negati Final [facility] Vaginalis ve [facility]: [address], [place] ? ? [facility] ? Trichomonas negative negati Final [facility] Vaginalis ve [facility]: [address], [place] 11/27/2020 Pap, IG + CERVI ? Diagnosis: comment ? Shirley l [facility] Reflex hr HPV X [facility] : [address], [place] ? ? CERVI ? Specimen comment ? Final [facility] X Adequacy: [facility]: [address], [place] ? ? CERVI ? Clinician comment ? Final [facility] X Provided [facility]: [address] ICD10: [address], [place] ? ? CERVI ? Performed by: comment ? Final [facility] X [facility]: [address], [place] ? ? CERVI ? QC Reviewed comment ? Final Lab angi X by: [facility]: [address], [place] ? ? CERVI ? . . ? Final [facility] X [facility]: [address], [place] ? ? CERVI ? Note: comment ? Final [facility] X [facility]: [address], [place] ? ? CERVI ? Test comment ? Final [facility] X Methodology: [facility]: [address], [place] ? ? CERVI ? . comment ? Final [facility] X [facility]: [address], [place] ? ? CERVI ? Chlamydia, negative negati Final Lab angi X Nuc. Acid Amp ve [facility] : [address], [place] ? ? CERVI ? Gonococcus, negative negati Final [facility] X Nuc. Acid Amp ve [facility] : [address], [place] 11/27/2020 ? HCG Results negative ? ? [facility] Test, Urine Physi tiara Services: [address] [facility] 11/27/2020 Urinalysis, ? Leukocytes Neg ? ? In-Office Dipstick Order: Internal Use Only D O Not Attach Compendium DO Not Attach Compendium , Do Not Delete/harjinder g e ? ? ? Nitrate negative ? ? In-Off ice Order: Internal Use Only D O Not Attach Compendium DO Not Attach Compendium , Do Not Delete/harjinder g e ? ? ? Urobilinogen 0.2 ? ? In- Office Order: Internal Use Only D O Not Attach Compendium DO Not Attach Compendium , Do Not Delete/harjinder g e ? ? ? Protein Neg ? ? In-Offic e Order: Internal Use Only D O Not Attach Compendium DO Not Attach Compendium , Do Not Delete/harjinder g e ? ? ? Ph 6.5 ? ? In-Office Order: Internal Use Only D O Not Attach Compendium DO Not Attach Compendium , Do Not Delete/harjinder g e ? ? ? Blood Neg ? ? In-Office Order: Internal Use Only D O Not Attach Compendium DO Not Attach Compendium , Do Not Delete/harjinder g e ? ? ? Specific 1.015 ? ? In-Offi ce [place] Order: Internal Use Only D O Not Attach Compendium DO Not Attach Compendium , Do Not Delete/harjinder g e ? ? ? Ketone Neg ? ? In-Office Order: Internal Use Only D O Not Attach Compendium DO Not Attach Compendium , Do Not Delete/harjinder g e ? ? ? Billirubin Neg ? ? In-Of fice Order: Internal Use Only D O Not Attach Compendium DO Not Attach Compendium , Do Not Delete/harjinder g e ? ? ? Glucose Neg ? ? In-Offic e Order: Internal Use Only D O Not Attach Compendium DO Not Attach Compendium , Do Not Delete/harjinder g e 10/07/2020 CBC W/ Auto ? Wbc 5.7 3.4-10 Final [facility] Diff x10e3/uL .8 [facility]: [address]/ [address], uL [place] ? ? ? Rbc 4.21 3.77-5 Final [facility] x10e6/uL .28 [facility]: [address] x[address]/ [address], uL [place] ? ? ? Hemoglobin 11.9 g/dL 11.1-1 Final [facility] 5.9 [facility]: 69 g/dL [address], [place] ? ? ? Hematocrit 35.8 % 34.0-4 Final [facility] 6.6 % [facility]: [address], [place] ? ? ? Mcv 85 fL 79-97 Final [facility] fL [facility]: [address], [place] ? ? ? Mch 28.3 pg 26.6-3 Final [facility] 3.0 pg [facility]: [address], [place] ? ? ? Mchc 33.2 g/dL 31.5-3 Final [facility] 5.7 [facility]: 69 g/dL [address], [place] ? ? ? Rdw 12.4 % 11.7-1 Final [facility] 5.4 % [facility]: [address], [place] ? ? ? Platelets 292 150-45 Final [facility] p x10e3/uL 0 [facility]: [address]/ [address], u[place] ? ? ? Neutrophils 49 % not Final [facility] estab. [facility]: [address], [place] ? ? ? Lymphs 46 % not Final [facility] estab. [facility]: [address], [place] ? ? ? Monocytes 5 % not Final [facility] estab. [facility]: [address], [place] ? ? ? Eos 0 % not Final [facility] estab. [facility]: [address], [place] ? ? ? Basos 0 % not Final [facility] estab. [facility]: [address], [place] ? ? ? Immature line supply ? Cancel [facility] Cells led [facility]: [address], [place] ? ? ? Neutrophils 2.8 1.4-7. Final [facility] (Absolute) x10e3/uL 0 [facility]: [address]/ [address], uL [place] ? ? ? Lymphs 2.6 0.7-3. Final [facility] (Absolute) x10e3/uL 1 [facility]: [address]/ [address], u[place] ? ? ? Monocytes(abs 0.3 0.1-0. Final [facility] [place]) x10e3/uL 9 [facility]: [address]/ [address], u[place] ? ? ? Eos 0.0 0.0-0. Final [facility] (Absolute) x10e3/uL 4 [facility]: [address]/ [address], u[address] [place] ? ? ? Baso 0.0 0.0-0. Final [facility] (Absolute) x10e3/uL 2 [facility]: [address]/ [address], u[place] ? ? ? Immature 0 % not Final [facility] Granulocytes estab. [facility]: [address], [place] ? ? ? Immature 0.0 0.0-0. Final [facility] Grans (Abs) x10e3/uL 1 [facility] : [address]/ [address], u[place] ? ? ? Nrbc line supply ? Cancel [facility] led [facility]: [address], [place] ? ? ? Hematology line supply ? Cancel [facility] Comments: led [facility]: [address], [place] 10/07/2020 CMP, Serum or Above Glucose 105 mg/dL 65-99 F inal [facility] Plasma High mg/dL [facility]: [address], [place] ? ? ? Bun 13 mg/dL 6-20 Final [facility] mg/dL [facility]: [address], [place] ? ? Below Creatinine 0.53 0.57-1 Final [facility] Low mg/dL .00 [facility]: 69 Normal mg/dL [address], [place] ? ? ? eGFR If 132 >59 Final [facility] Nonafricn AM mL/min/1. mL/min P SC: 69 73 /1.[address], [place] ? ? ? eGFR If 153 >59 Final [facility] Africn AM mL/min/1. mL/min PSC: 69 73 /1.[address], [place] ? ? Above BUN/creatinin 25 9-23 Final [facility] High e Ratio PSC: [address], [place] ? ? ? Sodium 141 134-14 Final [facility] mmol/L 4 PSC: 69 mmol/L [address], [place] ? ? ? Potassium 4.2 3.5-5. Final [facility] p mmol/L 2 PSC: 69 mmol/L [address], [place] ? ? Above Chloride 107 96-106 Final [facility] High mmol/L mmol/L PSC: [address], [place] ? ? ? Carbon 23 mmol/L 20-29 Final [facility] p Dioxide, Total mmol/L PS C: [address] [place] ? ? ? Calcium 9.4 mg/dL 8.7-10 Final [facility] rp .2 PSC: 69 mg/dL [address], [place] ? ? ? Protein, 6.9 g/dL 6.0-8. Final [facility] Total 5 g/dL PSC: [address], [place] ? ? ? Albumin 3.9 g/dL 3.9-5. Final [facility] p 0 g/dL PSC: [address], [place] ? ? ? Globulin, 3.0 g/dL 1.5-4. Final [facility] Total 5 g/dL PSC: [address], [place] ? ? ? A/g Ratio 1.3 1.2-2. Final [facility] p 2 PSC: [address], [place] ? ? ? Bilirubin, 0.2 mg/dL 0.0-1. Final [facility] Total 2 PSC: 69 mg/dL [address], [place] ? ? ? Alkaline 88 IU/L 39-117 Final [facility] p Phosphatase IU/L PSC: [address] [place] ? ? ? Ast (Sgot) 12 IU/L 0-40 Final [facility] IU/L PSC: [address] [place] ? ? ? Alt (Sgpt) 9 IU/L 0-32 Final [facility] r[facility] IU/L PSC: [address] [place] 10/07/2020 Lipid Panel, ? Cholesterol, 156 mg/dL 100- 19 Final [facility] Serum Total 9 PSC: 69 mg/dL [address], [place] ? ? ? Triglycerides 115 mg/dL 0-149 Final [facility] mg/dL PSC: [address] [place] ? ? ? HDL 40 mg/dL >39 Final [facility] Cholesterol mg/dL PSC: [address] [place] ? ? ? VLDL 21 mg/dL 5-40 Final [facility] Cholesterol mg/dL PSC: [address], [place] ? ? ? LDL Chol Calc 95 mg/dL 0-99 Final [facility] (Nih) mg/dL PSC: [address] [place] ? ? ? Comment: line supply ? Cancel [facility] led PSC: [address] [place] 10/07/2020 HbA1C ? Hemoglobin 5.5 % 4.8-5. Final [facility] (Hemoglobin a1C 6 % PSC: 69 a1C), Blood [address], [place] 10/07/2020 Vitamin D, Below Vitamin D, 21.9 30.0-1 Shirley l [facility] 25-Hydroxy, Low 25-Hydroxy NG/mL 00.0 P SC: 69 Total, Serum Normal NG/mL [address], [place] 10/07/2020 Hepatitis C ? HCV Ab <0.1 s/co 0.0-0. Shirley l [facility] Ab, Qual, IA, ratio 9 s/co PSC : [address], Plasma [place] ? ? ? Interpretatio comment ? Final [facility] n: PSC: [address] [place] 10/07/2020 TSH, ? Tsh 1.710 0.450- Final [facility] Ultra-sensitiv uIU/mL 4.500 PS C: 69 e, Serum uIU/mL [address], [place] 10/07/2020 Vitamin B12, ? Vitamin B12 470 pg/mL 232-1 2 Final [facility] Serum 45 PSC: 69 pg/mL [address], [place] 10/07/2020 Magnesium, ? Magnesium 1.6 mg/dL 1.6-2. Fi nal [facility] Serum or 3 PSC: 69 Plasma mg/dL First Christoph Bridges 09/29/2020 Urinalysis, ? Leukocytes Neg ? ? In-Office Dipstick Order: Internal Use Only D O Not Attach Compendium DO Not Attach Compendium , Do Not Delete/harjinder g e ? ? ? Nitrate negative ? ? In-Off ice Order: Internal Use Only D O Not Attach Compendium DO Not Attach Compendium , Do Not Delete/harjinder g e ? ? ? Urobilinogen 0.2 ? ? In- Office Order: Internal Use Only D O Not Attach Compendium DO Not Attach Compendium , Do Not Delete/harjinder g e ? ? ? Protein Neg ? ? In-Offic e Order: Internal Use Only D O Not Attach Compendium DO Not Attach Compendium , Do Not Delete/harjinder g e ? ? ? Ph 7 ? ? In-Office Order: Internal Use Only D O Not Attach Compendium DO Not Attach Compendium , Do Not Delete/harjinder g e ? ? ? Blood Neg ? ? In-Office Order: Internal Use Only D O Not Attach Compendium DO Not Attach Compendium , Do Not Delete/harjinder g e ? ? ? Specific 1.005 ? ? In-Offi ce [place] Order: Internal Use Only D O Not Attach Compendium DO Not Attach Compendium , Do Not Delete/harjinder g e ? ? ? Ketone Neg ? ? In-Office Order: Internal Use Only D O Not Attach Compendium DO Not Attach Compendium , Do Not Delete/harjinder g e ? ? ? Billirubin Neg ? ? In-Of fice Order: Internal Use Only D O Not Attach Compendium DO Not Attach Compendium , Do Not Delete/harjinder g e ? ? ? Glucose Neg ? ? In-Offic e Order: Internal Use Only D O Not Attach Compendium DO Not Attach Compendium , Do Not Delete/harjinder g e 08/08/2020 Urinalysis, ? No observation ? ? ? In-Office Dipstick recorded. Order : Internal Use Only D O Not Attach Compendium DO Not Attach Compendium , Do Not Delete/harjinder g e 08/08/2020 ? No observation ? ? ? [facility] Test, Urine recorded. Ph ysician Services: [address], [place] Past Encounters 05/05/2022 Hyperprolactinemia; Prediabetes; Morbid Obesity Micheal Akers MD: [address] [place] [address] [place] [address], Ph. 03/23/2022 Pica; Abdominal Pain; Nausea; Body Mass Index 40+ - Severely Obese KILEY Perry: [address] [place] [address], Ph. 02/03/2022 Hyperprolactinemia Micheal Akers MD: [address] [place] [address], [place] [address], Ph. 01/21/2022 Hyperprolactinemia; Amenorrhea Herminia Stephen MD: [address] [place] [phone], Ph. 01/04/2022 Amenorrhea Herminia Stephen MD: [address] [place] [phone], Ph. 12/31/2021 Pica; Nausea and Vomiting; Bleeding from Nose KILEY Perry: [address] [place] [address], Ph. 12/15/2021 Adult Health Examination; Endocrine/meta bolic Screening; Hyperlipidemia Screening; Disorder of Thymus Gland; Lump in Left Breast; Body Mass Index 40+ - Severely Obese; Prediabetes; Hyperprolactinemia; Amenorrhea KILEY Perry: [address] [place] [address], Ph. 10/01/2021 Pica; Amenorrhea; Diabetes Mellitus; Paolo rocytic Anemia KILEY Perry: [address] [place] [address] [place] [address], Ph. 09/15/2021 Vaginitis; Dysuria KILEY Perry: [address] [place] [address], Ph. 08/25/2021 Left Lower Quadrant Pain; Chronic Consti pation Honey Mansfield, SEO STRATEGIST: [address] [place] [address], Ph. 08/05/2021 Left Lower Quadrant Pain Honey Mansfield, SEO STRATEGIST: [address] [place] [address], Ph. 05/21/2021 Chronic Back Pain; Headache; Numbness of Foot Maya Cross, SEO STRATEGIST: [address] [place] [address], Ph. 04/02/2021 Chest Pain Cathy Duran MD: [address] [place] [phone], Ph. 03/05/2021 Chest Pain; Constipation; Body Mass Inde x 30+ - Obesity Maya Cross SEO STRATEGIST: [address] [place] [address], Ph. 02/19/2021 Chronic Back Pain; Vaginitis; Tachycardi a; Vomiting; Pica; Body Mass Index 30+ - Obesity Maya Cross SEO STRATEGIST: [address] [place] [address], Ph. 02/03/2021 Pica; Candidal Vulvovaginitis; Microcyti c Anemia Cathy Duran MD: [address] [place] [phone], Ph. 01/15/2021 Chest Pain; Seizure Disorder; Vitamin D Deficiency; Constipation; Multiple Joint Pain; Tinea Corporis; Nausea; Body Mass Index 30+ - Obesity Maya Cross SEO STRATEGIST: [address] [place] [address], Ph. 12/25/2020 Headache; Nausea; Swallowed Foreign Body ; Chronic Back Pain; Neck Pain; Body Mass Index 30+ - Obesity Maya Cross CNP: [address] [place], [place] [phone], Ph. 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 Social History Tobacco Smoking Status Never Smoker Vaccine List Vaccine Type COVID-19, mRNA, LNP-S, PF, 100 mcg/0.5 m L dose (Moderna) 12/18/2020 01/15/2021 Influenza, injectable, MDCK, preservativ e free, quadrivalent 09/08/2020?0.5 mL Plan of Care Patient Instructions Please follow up if you experience any changes or worsening of your symptoms. Please follow up if you experience any changes or worsening of your symptoms. Please follow up if you experience any changes or worsening of your symptoms. Please follow up if you experience any changes or worsening of your symptoms. Avoiding douching and irritants such as strong soaps or bubble baths can help prevent vaginitis. Male condoms may help prevent spread of infection. Probiotics in the diet may help to prevent recurrence of infectious vaginitis. F/U with any changes or worsening of your symptoms. Reminders Provider Appointments None recorded. ? ? Lab None recorded. ? ? Referral None recorded. ? ? Procedures None recorded. ? ? Surgeries None recorded. ? ? Imaging None recorded. ? ? Vitals 05/05/2022 10:30AM Follow Up 30 Height Weight BMI Blood Pressure 5 ft 1.5 in 222.5 lbs 41.4 kg/m2 90/62 mm[Hg] 03/23/2022 11:00AM Established Patient 40 Height Weight BMI Blood Pressure 5 ft 1.5 in 226 lbs 42 kg/m2 (1) 84/64 mm[Hg ] (2) 92/60 mm[Hg] 02/03/2022 10:15AM New Patient 45 Height Weight BMI Blood Pressure 5 ft 1.5 in 231 lbs 42.9 kg/m2 98/65 mm[Hg] 01/21/2022 11:45AM TeleMed 15 Height Blood Pressure 5 ft 1.5 in 01/04/2022 10:30AM New INSTRUMENTATION AND CONTROLS DESIGNER 15 Height Weight BMI Blood Pressure 5 ft 1.5 in 228 lbs 42.4 kg/m2 104/72 mm[Hg] 12/31/2021 10:40AM Established Patient 20 Height Weight BMI Blood Pressure 5 ft 1.5 in 229.2 lbs 42.6 kg/m2 110/86 mm[Hg] 12/15/2021 10:00AM Physical 40 Height Weight BMI Blood Pressure 5 ft 1.5 in 233.8 lbs 43.5 kg/m2 (1) 124/90 mm[H g] (2) 108/76 mm[Hg ] 10/01/2021 11:00AM Physical 60 Height Weight BMI Blood Pressure 5 ft 1 in 233.38 lbs 44.1 kg/m2 104/67 mm[Hg] 09/15/2021 02:30PM Any 40 Height Weight BMI Blood Pressure 5 ft 1 in 237 lbs 44.8 kg/m2 98/76 mm[Hg] 08/25/2021 12:40PM Any 40 Height Weight BMI Blood Pressure 5 ft 1 in 225 lbs 42.5 kg/m2 102/64 mm[Hg] 08/05/2021 01:20PM Established Patient 20 Height Weight BMI Blood Pressure 5 ft 1 in 227 lbs 42.9 kg/m2 102/78 mm[Hg] 05/21/2021 03:20PM Established Patient 20 Height Weight BMI Blood Pressure 5 ft 1 in 229 lbs 43.3 kg/m2 94/70 mm[Hg] 04/02/2021 04:40PM TeleMed 20 Height 5 ft 1 in 03/05/2021 09:40AM Any 40 Height Weight BMI Blood Pressure 5 ft 1 in 214 lbs 40.4 kg/m2 02/19/2021 10:00AM Any 40 Height Weight BMI Blood Pressure 5 ft 1 in 210 lbs 39.7 kg/m2 92/70 mm[Hg] 02/03/2021 02:00PM Any 40 Height Weight BMI Blood Pressure 5 ft 1 in 105/77 mm[Hg] 01/15/2021 03:00PM Any 40 Height Weight BMI Blood Pressure 5 ft 1 in 207 lbs 39.1 kg/m2 106/72 mm[Hg] 12/25/2020 11:00AM Any 40 Height Weight BMI Blood Pressure 5 ft 1 in 196 lbs 37 kg/m2 86/60 mm[Hg] 11/27/2020 10:00AM Any 40 Height Weight BMI Blood Pressure 5 ft 1 in 186 lbs 35.1 kg/m2 96/78 mm[Hg] 09/29/2020 01:00PM Physical 40 Height Weight BMI Blood Pressure 5 ft 1 in 177 lbs 33.4 kg/m2 96/64 mm[Hg] 09/08/2020 10:40AM Established Patient 20 Height Weight BMI Blood Pressure 5 ft 173 lbs 33.8 kg/m2 108/72 mm[Hg] 08/07/2020 04:00PM New Patient 40 Height Weight BMI Blood Pressure 5 ft 171 lbs 33.4 kg/m2 110/78 mm[Hg]
--- NOTE | 2022-05-25 20:50 | PC.ADMIT ---
Naheed is a 26-year-old female who presented to [facility] ED secondary to increased suicidal ideation with a plan to walk into traffic. Pt was transferred to via ambulance, CV signed. Tox screen negative. Medical history includes diabetes, high cholesterol, iron deficiency anemia, and pica. Pt endorsed increased AH/VH commanding to kill herself. Affect appears depressed, eye contact avoidant. During admission assessment, pt presented as guarded and anxious. She stated just so you know I'm having thoughts to kill myself while I'm here. When RN asked what her plan was, she said I can't say. Pt was placed on 1:1 for safety. Pt has a history of pica and has been hospitalized several times for ingestion/removal of screws, batteries, and plastic spoons. Pt has several lacerations in various stages of healing on her left arm. While on the unit pt picked at her arm until it bled, RN applied bacitracin, a bandaid and a woven sleeve to cover. Pt otherwise cooperated with admission assessment and signed legal status forms. Guanaco Nelson is her legal guardian but pt asked if staff could reach out to her mom just to let her know that I'm ok, but don't tell her where I am or what I did or else she'll be mad at me. Pt continues to endorse SI/AH/VH but denies HI.
--- NOTE | 2022-05-25 21:30 | PC.NURSE ---
pt refused flu vaccine
[2022-05-25] MEDS: Benztropine Mesylate 1 MG TABLET PO (21:57)
[2022-05-25] MEDS: LORazepam 1 MG TABLET PO (21:58)
[2022-05-25] MEDS: traZODone HCL 100 MG TABLET PO (21:58)
[2022-05-25] MEDS: Propranolol HCL 20 MG TABLET PO (21:58)
[2022-05-25] MEDS: Gabapentin 100 MG CAPSULE PO (21:59)
[2022-05-25 22:03] VITALS: BP 105/66; PULSE 96; TEMP 36.4; O2SAT 97
[2022-05-25] MEDS: traZODone HCL 50 MG TABLET PO (22:51)
[2022-05-25] MEDS: hydrOXYzine HCL 25 MG TABLET PO (22:51)
[2022-05-26] MEDS: metFORMIN HCl 1,000 MG TABLET 1000 MG PO (09:14)
[2022-05-26] MEDS: HaloperidoL 5 MG TABLET 10 MG PO ×2 (09:14→20:19)
[2022-05-26] MEDS: Ferrous Sulfate 324 MG TABLET.DR PO (09:14)
[2022-05-26] MEDS: Magnesium Oxide 400 MG TABLET PO ×2 (09:14→16:52)
[2022-05-26] MEDS: Gabapentin 100 MG CAPSULE PO ×3 (09:14→20:19)
[2022-05-26] MEDS: Benztropine Mesylate 1 MG TABLET PO ×2 (09:14→20:19)
[2022-05-26 09:17] VITALS: BP 106/59; PULSE 82; RESP 18; TEMP 36.6; O2SAT 97
--- NOTE | 2022-05-26 09:55 | P.HPPS_ITS ---
HPI Date of Service: 05/26/22 Chief Complaint: Major Depressive D/O Recurrent Episode Sources of Information: patient interviewed, chart reviewed and crisis/core team assessment reviewed HPI Subjective Notes: Argueta Warning and Conditional Voluntary Narrative: Ms. Arango is a 26 year-old woman with hx of Borderline Personality Disorder. She initially was brought via EMS on 05/22/2022 from [facility] to [facility] reporting increase SI, self harm behaviors and aggression towards other at the [facility]. She was recently discharged from [facility] inpatient psych unit after ingestion of batteries. Utox was negative in ED. Ms. Jenkins was seen by psychiatrist at [facility] who actually recommend against another inpatient admission given that evidence has shown that inpatient admission are for the most part detrimental for individual with BPD as it pre vents them from working with outpatient providers to further build coping skills and insight into triggers to self harm behaviors. This poem writer spoke with staff at [facility], Sera who is the residential leasing manager. Sera reports that Ms. Arango has struggled for about one month since a new resident joined the [facility] and pt perceives this person as taking attention away from her. On the unit, Ms. Arango presents with provocative comments such as I will kill myself but I am not telling you how. Pt expresses urges to engage in self harm behaviors, not necessarily suicidal behaviors such as swallowing sharp objects. Pt reports good appetite and good sleep. She does not appear internally preoccupied but reports AH, which may be related to past trauma. Past Psychiatric History: Inpatient: [facility] 04/2022; 02/2022; 01/2022;01/08/2022 OP: psychiatrist, Dr. Gabriela Chase [phone] [facility]: Poonam Macias [phone] Legal Guardian: Guanaco Nelson [phone] Medical Evaluation Reviewed: Yes PMFSH Family History: unknown Social History: Naheed was born in [place], in orphanage up until adopted parents with her older sister and younger brother. Currently lives in , has [facility] services. Substance History: None Trauma History: transition from [place]. of best friend by suicide more than 10 years ago. Diagnostics Vital Signs (24Hr): Vital Signs - 24 hr 05/25/22 22:03 05/26/22 09:17 Temperature 97.6 F 97.8 F Pulse Rate 96 82 Respiratory Rate 18 Blood Pressure 105/66 106/59 L Pulse Oximetry 97 97 Oxygen Delivery Method Room Air Room Air Meds/Allergies Meds Home Medications Medication Instructions Recorded Confirmed Type Cogentin 1 mg PO BID 05/25/22 05/25/22 History Haldol 15 mg PO BID 05/25/22 05/25/22 History gabapentin 100 mg PO TID 05/25/22 05/25/22 History trazodone 100 mg PO BEDTIME 05/25/22 05/25/22 History Allergies Allergies Allergy/AdvReac Type Severity Reaction Status Date / Time chlorpromazine Allergy Unknown Verified 05/25/22 22:52 [From Thorazine] divalproex sodium Allergy Unknown Verified 05/25/22 22:52 [From Depakote] latex Allergy Unknown Verified 05/25/22 22:52 risperidone [From Risperdal] Allergy Unknown Verified 05/25/22 22:52 shellfish derived Allergy Unknown Verified 05/25/22 22:52 tomato Allergy Unknown Verified 05/25/22 22:52 Mental Status Exam Mental Status Exam Narrative: Appearance: casually groomed, fair hygiene in NAD Behavior:superficially cooperative psychomotor:no agitation or retardation noted Speech:clear, normal rate/rhythm/volume, spontaneous Thought process:linear Thought content:provocative suicidal comments Mood: depressed Affect: slightly brighter SI:passive HI:none VH/AH:AH of past trauma Delusions:none Insight/judgment:poor x 2. Memory/cog: alert, oriented x 3. grossly intact but not formally tested. Assessment & Plan Assessment & Plan (1) Borderline personality disorder: Status: Acute Code(s): F60.3 - Borderline personality disorder Plan Ms. Arango is a 26 year-old woman with hx of Borderline Personality Disorder. [facility] the [facility]. Hx of ingestion of sharps and other objects as self harm behaviors. Pt was brought via EMS on 05/22 to [facility] ED due to pt reporting increased SI, increase aggression towards peers/staff, self harm behaviors. Pt was discharged from [facility] inpt unit on 05/17 after ingestion of batteries. Pt was assessed by psychiatrist on 05/22 who recommended against inpatient admission as evidence shows inpatient admission are mostly detrimental for individual with BPD as it prevents then from engaging with OP and continue working on self regulation and healthier ways of coping with emotional distress than self harm or harm to others. I completely agree with fact that self harm behaviors may only increase if inpatient admissions are long or recurrent as it will only reinforced such behaviors without building any insight or coping skills with OP providers. PLAN 1. Admit to M3, CV, 15 mins checks 2. Continue medications 3. Plan for prompt return to . has multiple safety measures including pt with work measurement engineer at all times. 4. Aftercare planning Patient educated on: diagnosis and medication risk/benefits Reason for continued inpatient stay Substantial Risk for: harm to self and harm to others
--- NOTE | 2022-05-26 10:01 | HO.PM.IMCN ---
History of Present Illness Data of Consult Service Date: 05/26/22 Primary Care Provider: Nonstaff Physician HPI Reason for consult: medical evaluation 26 year female obese with history of diabetes, high cholesterol, iron deficiency anemia with pica who is presently admitted to inpatient Psych due to depression with increased suicidal ideation with a plan to walk into traffic and . Pt endorsed increased AH/VH commanding to kill herself . She states she takes metformin for diabetes but presently is not ordered. She states that she has hisotory of vaginal yeast infection in the past believes that she may be having it now but didn't feel comofrtable talking about it with a male doctor, she has itchyness down there. Other that no fever or chils, no abdominal pain, no n/v no sob, no chest Review of Systems Review of Systems: Gen: no fever Resp: no sob, no cough CV: no chest, no MEAD, no leg edema GI: No n/v, no abd pain Neuro: No confusion Pscyh: ongoing SI and has sitter : vaginal itchyess PMFSH Social History Household Members: Other Household Members Other:: jail Housing: Other Do you presently have visiting nurse or other home services: No Patient Tobacco Use Status: Never used Tobacco Use of substances other than those prescribed or required for medical reasons: No Have you been hit, kicked, punched, or otherwise hurt by someone within the past year? If so, by whom?: No Do you feel safe in your current relationship?: No Current Relationship Is there a partner from a previous relationship who is making you feel unsafe now?: No Are you made to feel afraid or neglected: No Advance Directives: No Advance Directives Information Provided: No Do you have thoughts of harming others: None Do you have a plan to hurt others: No Plan Recently lost weight without trying: No Nutrition Risks: No Nutritional Risk Patient : No : No Poor oral hygiene: No Meds Allergies Allergy/AdvReac Type Severity Reaction Status Date / Time chlorpromazine Allergy Unknown Verified 05/25/22 22:52 [From Thorazine] divalproex sodium Allergy Unknown Verified 05/25/22 22:52 [From Depakote] latex Allergy Unknown Verified 05/25/22 22:52 risperidone [From Risperdal] Allergy Unknown Verified 05/25/22 22:52 shellfish derived Allergy Unknown Verified 05/25/22 22:52 tomato Allergy Unknown Verified 05/25/22 22:52 Active Medications: Current Medications Acetaminophen (Acetaminophen 325 Mg Tablet) 650 mg PO Q6H PRN PRN Reason: Headache/Pain Mild Scale (1-3) Al Hydroxide/Mg Hydroxide (Magnesium Hydrox/Alum Hydrox 30 Ml Oral.Susp) 30 ml PO Q6H PRN PRN Reason: Heartburn/Nausea Benztropine Mesylate (Benztropine Mesylate 1 Mg Tablet) 1 mg PO BID [facility] Last Admin: 05/26/22 09:14 Dose: 1 mg Ferrous Sulfate (Ferrous Sulfate 324 Mg Tablet.Dr) 324 mg PO DAILY [facility] Last Admin: 05/26/22 09:14 Dose: 324 mg Gabapentin (Gabapentin 100 Mg Capsule) 100 mg PO TID [facility] Last Admin: 05/26/22 09:14 Dose: 100 mg Haloperidol (Haloperidol 5 Mg Tablet) 10 mg PO BID [facility] Last Admin: 05/26/22 09:14 Dose: 10 mg Hydroxyzine HCl (Hydroxyzine Hcl 25 Mg Tablet) 25 mg PO Q6H PRN PRN Reason: Anxiety Last Admin: 05/25/22 22:51 Dose: 25 mg Lorazepam (Lorazepam 1 Mg Tablet) 1 mg PO Q4H PRN PRN Reason: agitation Last Admin: 05/25/22 21:58 Dose: 1 mg Magnesium Hydroxide (Milk Of Magnesia 30 Ml Oral.Susp) 30 ml PO DAILY PRN PRN Reason: Constipation Magnesium Oxide (Magnesium Oxide 400 Mg Tablet) [facility] Last Admin: 05/26/22 09:14 Dose: 400 mg Metformin HCl (Metformin Hcl 1,000 Mg Tablet) 1,000 mg PO DAILY [facility] Last Admin: 05/26/22 09:14 Dose: 1,000 mg Nicotine Polacrilex (Nicotine Polacrilex 2 Mg Gum) 4 mg BUCCAL Q2H PRN PRN Reason: Nicotine Cravings Propranolol HCl (Propranolol Hcl 20 Mg Tablet) 20 mg PO BID [facility]; Protocol Last Admin: 05/25/22 21:58 Dose: 20 mg Sumatriptan Succinate (Sumatriptan Succinate 100 Mg Tablet) 100 mg PO DAILY PRN PRN Reason: Migraine Headache Trazodone HCl (Trazodone Hcl 50 Mg Tablet) 50 mg PO BEDTIME PRN PRN Reason: Insomnia Last Admin: 05/25/22 22:51 Dose: 50 mg Trazodone HCl (Trazodone Hcl 100 Mg Tablet) 100 mg PO BEDTIME BRITTANY Last Admin: 05/25/22 21:58 Dose: 100 mg Home Medications Medication Instructions Recorded Confirmed Last Taken Type Cogentin 1 mg PO BID 05/25/22 05/25/22 Unknown History Haldol 15 mg PO BID 05/25/22 05/25/22 Unknown History gabapentin 100 mg PO TID 05/25/22 05/25/22 Unknown History trazodone 100 mg PO BEDTIME 05/25/22 05/25/22 Unknown History Physical Exam Vital Signs and Narrative: Vital Signs: Last Vital Signs Temp 97.8 F 05/26/22 09:17 Pulse 82 05/26/22 09:17 Resp 18 05/26/22 09:17 BP 106/59 L 05/26/22 09:17 Pulse Ox 97 05/26/22 09:17 O2 Del Method 05/26/22 09:17 Const: Other: Constitutional: Alert, in no distress, overweight. Mental Status: Oriented to person, place and time. Eyes: Pupils are equal, round and reactive to light. Ear, Nose and Throat: Oropharynx clear, mucous membranes moist. Respiratory: Clear to auscultation. No wheezing, rales or rhonchi. Cardiovascular: S1 S2 regular. No murmurs, rubs or gallops. Gastrointestinal: Abdomen soft, non-tender, non-distended. Normal bowel sounds.? : deffered to a female provider Neurologic: Cranial nerves II-XII grossly intact. No focal neurological deficits. Moves all extremities spontaneously.? Skin: No rashes or lesions.? Musculoskeletal: No cyanosis or clubbing. Psychiatric: depressed affect, SI (was accompanied by 1;1 observer) Assessment and Plan (1) Diabetes: Status: Acute (2) Obese: Status: Acute (3) HLD (hyperlipidemia): Status: Acute Plan 26/F obese with history of diabetes, HLD, obese admitted for treatment of depression with SI, AH/VH and possible vaginal yeast infection. Diabetes. should check POCs and ordered Metformin when dose verified, check A1C, cholesterol, weight loss encouge, Diflucan for yeast infection following exam by female provider. Continue Psych care. Will follow on PRN basis. Thanks
[2022-05-26] MEDS: SUMAtriptan succinate 100 MG TABLET PO (11:16)
[2022-05-26] MEDS: LORazepam 1 MG TABLET PO ×3 (11:21→20:19)
[2022-05-26] MEDS: hydrOXYzine HCL 25 MG TABLET PO ×2 (11:21→21:14)
[2022-05-26] MEDS: Fluconazole 150 MG TABLET PO (11:22)
[2022-05-26 11:47] LABS: Estimated Average Glucose 126 mg/dL
--- NOTE | 2022-05-26 12:12 | P.EN_ITS ---
Event Note Date of Service: 05/26/22 Event Note: Pt seen and evaluated for vulvovaginal irritation ongoing several days. Reports history of recurrent yeast infections. Describes symptoms of vaginal itch and burning. There is also dysuria and abnormal vaginal discharge with fishy odor. Denies unsafe sexual practices. Based on psychiatric history, internal exam deferred at this time. Given experience designer history, most likely vulvovaginal candidiasis, will treat empirically with diflucan. However, given vaginal discharge odor and pt report of excessively cleaning genital area, should consider BV. Pt self administered swab to test bv, candidiasis, and trich ordered. Urine CTNG also ordered.
[2022-05-26 12:19] LABS: Glucose, Whole Blood 104 mg/dL (60-115)
[2022-05-26 16:58] LABS: Glucose, Whole Blood 133 mg/dL (60-115)
[2022-05-26 18:06] LABS: CT PCR NOT DETECTED (Not Detect.); NG PCR NOT DETECTED (Not Detect.)
[2022-05-26 20:06] VITALS: BP 138/90; PULSE 90; RESP 18; TEMP 36.6; O2SAT 98
[2022-05-26 20:14] LABS: Glucose, Whole Blood 110 mg/dL (60-115)
[2022-05-26] MEDS: traZODone HCL 100 MG TABLET PO (20:19)
[2022-05-26] MEDS: Propranolol HCL 20 MG TABLET PO (20:19)
[2022-05-26] MEDS: traZODone HCL 50 MG TABLET PO (21:14)
[2022-05-27 08:51] VITALS: BP 126/70; PULSE 96; RESP 18; TEMP 36.6; O2SAT 97
[2022-05-27] MEDS: Gabapentin 100 MG CAPSULE PO (08:52)
[2022-05-27] MEDS: HaloperidoL 5 MG TABLET 10 MG PO (08:52)
[2022-05-27] MEDS: metFORMIN HCl 1,000 MG TABLET 1000 MG PO (08:52)
[2022-05-27] MEDS: Benztropine Mesylate 1 MG TABLET PO (08:52)
[2022-05-27] MEDS: Ferrous Sulfate 324 MG TABLET.DR PO (08:52)
[2022-05-27] MEDS: Propranolol HCL 20 MG TABLET PO (08:53)
[2022-05-27] MEDS: Magnesium Oxide 400 MG TABLET PO (08:53)
[2022-05-27 09:11] LABS: Glucose, Whole Blood 139 mg/dL (60-115)
[2022-05-27] MEDS: LORazepam 1 MG TABLET PO (09:40)
[2022-05-27] MEDS: hydrOXYzine HCL 25 MG TABLET PO (09:40)
--- NOTE | 2022-05-27 12:46 | PM.PSYDC ---
DS: Providers Provider Date of Service: 05/27/22 Date of admission: 05/25/22 19:48 Primary care physician: Nonstaff Physician Consults: 05/25/22 20:24 Consult to Hospitalist Routine Consulting Provider: Hospitalist Reason For Exam: OSH admission DS: Diagnosis Discharge Diagnosis (1) Borderline personality disorder: Status: Acute DS: Medications Discharge Medications Home Medications: Previous Rx's Medication Instructions Recorded benztropine 1 mg tablet 1 mg PO BID #0 tabs 05/27/22 ferrous sulfate 324 mg (65 mg 324 mg PO DAILY #0 tabs 05/27/22 iron) tablet,delayed release gabapentin 100 mg capsule 100 mg PO TID #0 caps 05/27/22 haloperidol 5 mg tablet 10 mg PO BID #0 tabs 05/27/22 hydroxyzine HCl 25 mg tablet 25 mg PO Q6H PRN Anxiety #0 tabs 05/27/22 magnesium oxide 400 mg (241.3 mg 400 mg PO BIDPC #0 tabs 05/27/22 magnesium) tablet metformin 1,000 mg tablet 1,000 mg PO DAILY #0 tabs 05/27/22 propranolol 20 mg tablet 20 mg PO BID #0 tabs 05/27/22 sumatriptan succinate 100 mg tablet 100 mg PO DAILY PRN Migraine 05/27/22 Headache #0 tabs trazodone 100 mg tablet 100 mg PO BEDTIME #0 tabs 05/27/22 Mental Status Exam Mental Status Exam Narrative: Appearance: casually groomed, fair hygiene in NAD Behavior:superficially cooperative psychomotor:no agitation or retardation noted Speech:clear, normal rate/rhythm/volume, spontaneous Thought process:linear Thought content:provocative suicidal comments Mood: depressed Affect: slightly brighter SI:passive and chronic HI:none VH/AH:AH of past trauma Delusions:none Insight/judgment:poor x 2. Memory/cog: alert, oriented x 3. grossly intact but not formally tested. Data Data Completed and Pending Completed studies during hospitalization [Text1]: 05/26/22 05/26/22 05/26/22 11:30 12:06 12:23 POC Glucose 104 Estimat Average Glucose 126 Hemoglobin A1c % 6.0 Tiffany species DNA Pending Chlam trachomat DNA PCR Gardnerella DNA Probe Pending N.gonorrhoeae DNA (PCR) Trichomonas DNA Probe Pending 05/26/22 05/26/22 05/26/22 16:55 20:10 Unknown POC Glucose 133 H 110 Estimat Average Glucose Hemoglobin A1c % Tiffany species DNA Chlam trachomat DNA PCR NOT DETECTED Gardnerella DNA Probe N.gonorrhoeae DNA (PCR) NOT DETECTED Trichomonas DNA Probe 05/27/22 09:07 POC Glucose 139 H Estimat Average Glucose Hemoglobin A1c % Tiffany species DNA Chlam trachomat DNA PCR Gardnerella DNA Probe N.gonorrhoeae DNA (PCR) Trichomonas DNA Probe DS: Summary Hospital Course Hospital Course: Subjective Notes: [place] Warning and Conditional Voluntary Narrative: Ms. Arango is a 26 year-old woman with hx of Borderline Personality Disorder. She initially was brought via EMS on 05/22/2022 from [facility] to [place] ED reporting increase SI, self harm behaviors and aggression towards other at the [facility]. She was recently discharged from [place] inpatient psych unit after ingestion of batteries. Utox was negative in ED. Ms. Jenkins was seen by psychiatrist at [place] who actually recommend against another inpatient admission given that evidence has shown that inpatient admission are for the most part detrimental for individual with BPD as it prevents them from working with outpatient providers to further build coping skills and insight into triggers to self harm behaviors. This appeals writer spoke with staff at [facility], Sera who is the advertising project manager. Sera reports that Ms. Arango has struggled for about one month since a new resident joined the [facility] and pt perceives this person as taking attention away from her. On the unit, Ms. Arango presents with provocative comments such as I will kill myself but I am not telling you how. Pt expresses urges to engage in self harm behaviors, not necessarily suicidal behaviors such as swallowing sharp objects. Pt reports good appetite and good sleep. She does not appear internally preoccupied but reports AH, which may be related to past trauma. Past Psychiatric History: Inpatient: [facility] 04/2022; 02/2022; 01/2022;01/08/2022 ? OP: psychiatrist, Dr. Gabriela Chase [phone] ? MAS: Poonam Macias [phone] Legal Guardian: Guanaco Nelson [phone] Medical Evaluation Reviewed: Yes HOSPITAL COURSE On the unit, pt was admitted on a CV and placed on 15 minutes checks for safety. Pt has some insight into her psychiatric condition, naming borderline as primary diagnosis. We discussed most appropriate treatment for BPD and avoiding situation or settings (clinical or not such as inpatient settings) that will only increase self harm behaviors as way of coping with emotional distress. It was clear that pt was future oriented in that she was looking to see friends, family, and providers which contradicted her reports of suicidal ideation or self harm as reflection of suicidality. On the unit, pt was social with select peers and her affect appeared significantly brighter when not in session with providers. Collateral information from staff at was gathered, who seemed to be well informed about BPD and appropriate interventions. advertising project manager informed this appeals writer that pt has constant code official. She has chargeback analyst therapist that has behavioral plan for pt. Pt has outpatient psychiatrist. Pt's medications are locked. OP staff from were in agreement to have short stay in hospital to prevent regression and increase in self harm behaviors to cope with emotional distress. Time spent discussing smoking cessation with patient: 3 to 10 minutes Status at Discharge Cognitive/behavioral status at discharge: Pt with bright, non labile affect. Chronic SI, self harm threats are not reflection of suicidality but way of coping with emotional dysregulation. No s/s of psychosis. Sleeping and eating well. Functional status at discharge: independent ambulation Overall status at discharge: patient is progressing back to baseline Time Spent with Patient Time attestation: Total time spent providing and/or coordinating discharge services: Discharge Plan Discharge Anticipated Discharge Date/Time: 05/27/22 12:37 Patient Disposition: Home Health Service Discharge Diagnosis: Borderline Personality Disorder Referrals: Physician,Nonstaff [Primary Care Provider] - 1 Week Discharge Medications: New haloperidol 5 mg Tablet 10 mg PO BID Qty: 0 0RF sumatriptan succinate 100 mg Tablet 100 mg PO DAILY PRN (Reason: Migraine Headache) Qty: 0 0RF magnesium oxide 400 mg (241.3 mg magnesium) Tablet 400 mg PO BIDPC Qty: 0 0RF trazodone 100 mg Tablet 100 mg PO BEDTIME Qty: 0 0RF metformin 1,000 mg Tablet 1,000 mg PO DAILY Qty: 0 0RF benztropine 1 mg Tablet 1 mg PO BID Qty: 0 0RF hydroxyzine HCl 25 mg Tablet 25 mg PO Q6H PRN (Reason: Anxiety) Qty: 0 0RF gabapentin 100 mg Capsule 100 mg PO TID Qty: 0 0RF propranolol 20 mg Tablet 20 mg PO BID Qty: 0 0RF Protocol: Hold for SBP/HR < HOLD for SBP < : 90 HOLD for HR < : 60 ferrous sulfate 324 mg (65 mg iron) Tablet,Delayed Release (Dr/Ec) 324 mg PO DAILY Qty: 0 0RF Discontinued Cogentin 1 mg PO BID Haldol 15 mg PO BID gabapentin 100 mg PO TID trazodone 100 mg PO BEDTIME Discharge Orders: Discharge Order (Routine); Ordered 05/27/22 Ordered By: Jordyn Jackson Diet: Diabetic diet Activity on Discharge: As tolerated Stand Alone Forms: Patient Portal Discharge page, Community Support Care Plan Goals: 1. Maintain mood 2. Chronic SI, self injurious behaviors- continue OP tx to decrease urgency and frequent/intensity Health Concerns: Follow up with PCP Plan of Treatment: 1. Take medications as prescribed 2. Go to nearest ED or call 911 in event of emergency Assessment: Pt with constricted but stable affect. Pt reports chronic SI, intermittent urges to self harm. Little to no insight into intrapersonal dynamics that trigger them and limited coping skills to self regulate in ways that are not maladaptive such as engaging in self harm behaviors or aggression towards others. Pt will only benefit from outpatient treatment and inpatient admission will only be detrimental to her treatment and willingness to engage with outpatient providers. Pt will be picked up by staff where she has contact code official. Discharge Date/Time: 05/27/22 13:22
[2022-05-27 13:26] LABS: BV Int Neg Control Negative (Negative); BV Int Pos Control Positive (Positive)
== END 2022-05-27 13:22 | disposition home health service (06) | DRG 752 ==
PROVIDERS: Internal Medicine; Physician Assistant; Admitting Provider Psychiatry & Neurology Psychiatry; Visit Provider Social Worker
DX: F60.3 Borderline personality disorder (principal); R45.851 Suicidal ideations; E11.9 Type 2 diabetes mellitus without complications; E66.9 Obesity, unspecified; E78.5 Hyperlipidemia, unspecified; N76.0 Acute vaginitis; Z91.040 Latex allergy status; Z91.013 Allergy to seafood; Z88.8 Allergy status to other drugs, medicaments and biological substances; Z20.822 Contact with and (suspected) exposure to COVID-19; Z79.84 Long term (current) use of oral hypoglycemic drugs; Z79.899 Other long term (current) drug therapy
CPT/HCPCS: 36415; 82947; 83036; 87480; 87491; 87510; 87591; 87660

== ENCOUNTER 2022-09-21 09:59 | Emergency (ER) | payer MEDICAID, SELFPAY ==
--- NOTE | ~2022-09-21 | XR_ITS ---
EXAMINATION: XR CHEST CLINICAL INFORMATION: Chest pain COMPARISON: Chest x-ray dated 08/16/2022 TECHNIQUE: 2 views of the chest were obtained. FINDINGS: Low lung volumes. Streaky opacities in the lower lungs bilaterally. No pleural effusion. No pneumothorax. Cardiomediastinal silhouette and pulmonary vascularity are within normal limits. No acute osseous abnormalities. XR/XR chest 2V IMPRESSION: Low lung volumes. Streaky opacities in the lower lungs bilaterally could represent infiltrates or atelectasis.
[2022-09-21 10:09] VITALS: BP 102/72; BP 103/55; PULSE 90; RESP 18; TEMP 36.8; O2SAT 95; O2SAT 97; BMI 38.9
--- NOTE | 2022-09-21 10:39 | ECG_ITS ---
Test Reason : CP Blood Pressure : / mmHG Vent. Rate : 084 BPM Atrial Rate : 084 BPM P-R Int : 182 ms QRS Dur : 066 ms QT Int : 362 ms P-R-T Axes : 010 010 004 degrees QTc Int : 427 ms Normal sinus rhythm Minimal voltage criteria for LVH, may be normal variant ( R in aVL ) Cannot rule out Anterior infarct , age undetermined Abnormal ECG No previous ECGs available Referred By: Oliva Saucedo Electronically Signed By:Rubén Dowell
[2022-09-21 11:25] LABS: MANUAL DIFF FLAG NO
[2022-09-21 11:26] LABS: Eosinophils Percent Auto 0.2 % (0-4); Hematocrit 36.1 % (37.0-47.0); Imm Gran Abs Auto 0.03 X10*3/uL (0.00-0.03); Imm Gran Pct Auto 0.5 % (0.0-0.4); Lymphocytes Absolute Auto 2.4 X10*3/uL (1.2-4.9); Mean Corpuscular HGB Conc 33.2 g/dl (31.0-35.0); Mean Corpuscular Hemoglobin 27.1 pg (27.0-33.0); Mean Corpuscular Volume 81.7 fL (80.0-98.0); Mean Platelet Volume 9.4 fL (9.4-12.3); Monocytes Absolute Auto 0.4 X10*3/uL (0.1-1.2); Monocytes Percent Auto 6.1 % (2-11); Neutrophils Absolute Auto 3.1 x10*3/uL (2.0-8.3); Neutrophils Percent Auto 53.2 % (45-73); Platelet Count 276 X10*3/uL (160-400); Red Blood Count 4.42 X10*6/uL (4.20-5.50); Red Cell Distribution Width 13.4 % (11.0-16.0); White Blood Count 5.9 X10*3/uL (4.8-10.8)
[2022-09-21 11:30] LABS: COVID-19 Test Negative (Negative); IDNOW Serial# 16C4AD1C; IDNOW Serial# BCCEAD1C; Influenza A Negative (Negative); Influenza B2 Negative (Negative)
[2022-09-21 11:32] LABS: INTERNATIONAL NORM RATIO 1.1 (0.9-1.1); Prothrombin Time 13.1 SEC (10.0-13.1)
[2022-09-21 11:43] LABS: Alanine Aminotransferase 16 U/L (0-31); Albumin Level 3.7 g/dL (3.5-5.0); Alkaline Phosphatase 131 U/L (39-117); Anion Gap 10 (12-20); Aspartate Amino Transferase 15 U/L (5-31); Bilirubin Total 0.4 mg/dL (0.0-1.0); Blood Urea Nitrogen 12 mg/dL (9-16); Calcium 9.1 mg/dL (8.4-10.2); Carbon Dioxide 28 mmol/L (22-29); Chloride 107 mmol/L (96-108); Estimated Glomerular Filt Rate > 60; Glucose Random 88 mg/dL (60-115); Lipase 9 U/L (8-78); Potassium 4.1 mmol/L (3.3-5.1); Sodium 141 mmol/L (135-145); Total Protein 6.4 g/dL (6.5-8.0)
[2022-09-21] MEDS: 0.9 % Sodium Chloride 1,000 ML 999 ML IV (11:46)
[2022-09-21] MEDS: ondansetron HCL 4 MG/2 ML VIAL IVPUSH (11:47)
[2022-09-21 12:04] LABS: Troponin-I High Sensitivity < 3.5 ng/L (<3.5-17.0)
[2022-09-21 12:15] LABS: Appearance Urine Cloudy; Color Urine Yellow; Glucose Urine UA Negative (Negative); Leukocyte Esterase Urine Trace (Negative); Nitrite Urine Negative (Negative); Specific Gravity - Urine 1.015 (1.005-1.025); UMIC TRIGGER UACC YES; UPreg QC Valid YES; Urine Blood Negative (Negative); Urine Ketones Negative (Negative); Urine Pregnancy NEGATIVE (NEGATIVE); Urine Protein Negative (Neg-Trace)
[2022-09-21 12:23] LABS: Bacteria Urine 3+ (None Seen); RBC Urine 0-2 /HPF (0-2); UACC Culture Trigger YES
--- NOTE | 2022-09-21 12:49 | ED.GENADULT ---
HPI - General Adult General Chief complaint: General Medical Stated complaint: VOMITING W/CP,SEC 21 FROM INPT Time Seen by Provider: 09/21/22 10:38 Source: patient Mode of arrival: ambulatory Limitations: no limitations History of Present Illness HPI narrative: Patient is a 26-year-old female who presents emergency department via EMS from [facility]. Patient was admitted there yesterday from [facility] for suicidal ideation After having ran away from a long term. Patient arrived there yesterday reportedly vomiting then, today she is reporting chest pain that radiates across left chest. pain is made worse upon palpation, with movement, during episodes of vomiting. she denies fevers, chills, shortness of breath, difficulty breathing, dysuria, urinary frequency / urgency/ hesitancy, constipation, diarrhea, leg pain or leg swelling. Related Data Previous Rx's Medication Instructions Recorded benztropine 1 mg tablet 1 mg PO BID #0 tabs 05/27/22 ferrous sulfate 324 mg (65 mg 324 mg PO DAILY #0 tabs 05/27/22 iron) tablet,delayed release gabapentin 100 mg capsule 100 mg PO TID #0 caps 05/27/22 haloperidol 5 mg tablet 10 mg PO BID #0 tabs 05/27/22 hydroxyzine HCl 25 mg tablet 25 mg PO Q6H PRN Anxiety #0 tabs 05/27/22 magnesium oxide 400 mg (241.3 mg 400 mg PO BIDPC #0 tabs 05/27/22 magnesium) tablet metformin 1,000 mg tablet 1,000 mg PO DAILY #0 tabs 05/27/22 propranolol 20 mg tablet 20 mg PO BID #0 tabs 05/27/22 sumatriptan succinate 100 mg tablet 100 mg PO DAILY PRN Migraine 05/27/22 Headache #0 tabs trazodone 100 mg tablet 100 mg PO BEDTIME #0 tabs 05/27/22 ondansetron 4 mg disintegrating 4 mg PO Q8H PRN nausea and 09/21/22 tablet vomiting #7 tabs Allergies Allergy/AdvReac Type Severity Reaction Status Date / Time chlorpromazine Allergy Unknown Verified 05/25/22 22:52 [From Thorazine] divalproex sodium Allergy Unknown Verified 05/25/22 22:52 [From Depakote] latex Allergy Unknown Verified 05/25/22 22:52 risperidone [From Risperdal] Allergy Unknown Verified 05/25/22 22:52 shellfish derived Allergy Unknown Verified 05/25/22 22:52 tomato Allergy Unknown Verified 05/25/22 22:52 Review of Systems Review of Systems: Constitutional : No Weight loss, No Fever, No Chills ENT/Mouth :? No sore throat, No Rhinorrhea Eyes: No Swelling, No Redness Cardiovascular : positive Chest Pain, No SOB, No Edema Respiratory : No Cough, No Sputum, No Wheezing Gastrointestinal : Positive Nausea, Positive Vomiting, No Diarrhea, no abdominal pain, No Hematochezia, No Melena Genitourinary : No Dysuria, No Urinary Frequency, No Hematuria, No Urgency? Musculoskeletal : No joint pain, No Myalgias, No Joint Swelling Skin : No Skin Lesions, No rash Neuro : No Weakness, No Numbness, No Dizziness, No Headache Psych : No Anxiety/Panic, No Depression Heme/Lymph: No Bruising, No Lymphadenopathy Endocrine : No Polyuria, No Polydipsia Yes all other systems are reviewed and are negative [facility] Past Medical History Attestation statement: The following information was validated with the patient. Source: old records reviewed Social History Social History Household Members: Other Household Members Other:: long term Housing: Other Do you presently have visiting nurse or other home services: No Alcohol intake: never Patient Tobacco Use Status: Never used Tobacco Smoked in Last 30 Days: No Use of substances other than those prescribed or required for medical reasons: No Advance Directives: No Advance Directives Information Provided: No service: No Sexual orientation: Lesbian/Murguia/Homosexual Physical Exam ED Vital Signs: Vital Signs - 24 hr 09/21/22 10:09 09/21/22 14:34 Temperature 98.2 F Pulse Rate 90 85 Respiratory Rate 18 16 Blood Pressure 103/55 L 107/70 Pulse Oximetry 95 96 Oxygen Delivery Method Room Air Room Air BMI result Body Mass Index 38.9 Appearance: Alert.?Oriented to person, place and time. No acute distress.?Normal affect. Eyes: Pupils equal, round and reactive to light.? ENT: Pharynx normal.?? Neck: Normal inspection.? Neck supple.?? CVS: Heart sounds normal. Normal heart rate and rhythm.? Pulses normal.?? Respiratory: No respiratory distress.? Lung sounds clear to auscultation bilaterally?? Abdomen: Soft and non-tender. negative Jalloh sign, no rebound tenderness at McBurney's point, negative obturator's sign, negative psoas sign. Normoactive bowel sounds. ?? Skin: Skin warm and dry.? Normal skin color.? Extremities: No lower extremity edema.? Neuro: Moves all extremities spontaneously. Sensation intact bilaterally. CN II-XII intact. No focal neuro deficits. Ambulates with normal steady gait. Course Reevaluation(s) Reevaluation #1: CBC is overall unremarkable. CMP is overall unremarkable. Troponin <3.5, EKG revealing a normal sinus rhythm, no ST elevation or ST depression, at this time not consistent with acute ischemic findings, Does not appear consistent with ACS. PERC negative, unlikely pulmonary embolism. Urine test is negative. Urinalysis with trace leukocyte esterase, squamous epithelial cells in urine bacteria seen, she is without genitourinary complaints, antibiotics at this time does not seem consistent with urinary tract infection, likely urogenital contamination, culture was sent. COVID- 19 and influenza testing are negative. Chest x-ray revealing streaky opacities in the lower lungs bilaterally, representing infiltrate versus atelectasis, at this time does not of have symptoms consistent with potential pneumonia, afebrile, no hypoxia or tachypnea, no cough or shortness of breath, no fevers or chills, suspect atelectasis at this time. She reports improvement in nausea sensation at this time, pain is currently 2/10. Will attempt p.o. trial. Time: 13:31 Reevaluation #2: Tolerating p.o. intake at this time. Suspect vomiting to be likely viral in nature at this time. stable for discharge back to [facility]. Will provide prescription for Zofran for nausea/ vomiting to use as needed. Time: 14:14 Medications Administered Discontinued Medications Generic Name Dose Route Start Last Admin Trade Name Freq PRN Reason Stop Dose Admin Sodium Chloride 1,000 mls @ 999 mls/hr 09/21/22 10:45 09/21/22 13:14 Ns IV 09/21/22 11:45 Infused .Q1H1M BRITTANY Infusion Ibuprofen 600 mg 09/21/22 13:34 09/21/22 13:46 Ibuprofen 600 Mg Tablet PO 09/21/22 13:35 600 mg ONCE ONE Administration Ondansetron HCl 4 mg 09/21/22 10:42 09/21/22 11:47 Ondansetron Hcl 4 Mg/2 Ml Vial IVPUSH 09/21/22 10:43 4 mg ONCE ONE Administration Medical Decision Making Medical Decision Making [facility] Narrative: Patient is a 26-year-old female with past medical history of diabetes, iron deficiency anemia, borderline personality disorder presenting to emergency department for evaluation of vomiting in associated chest pain. At the time of examination she is overall well-appearing. Afebrile without tachycardia tachypnea or hypoxia. Abdominal examination is benign. Will obtain CBC to evaluate for leukocytosis/ anemia, CMP and lipase to evaluate for abnormal electrolytes /abnormal renal function/ abnormal hepatic/biliary function, EKG and troponin to evaluate for ischemia/ACS. Chest x-ray to evaluate for consolidation/ infiltrate/ mass/ pulmonary congestion and Urinalysis. Differential Diagnosis Differential Diagnoses: The differential diagnosis associated with the presentation includes ( Cholelithiasis, cholecystitis, gastroenteritis, ACS, pulmonary embolism, musculoskeletal pain, urinary tract infection, ) Lab Data [facility] Lab Attestation statement: I reviewed the patient's lab results. 09/21/22 11:21 09/21/22 11:21 Labs: Lab Results 09/21/22 09/21/22 09/21/22 Range/Units 11:04 11:04 11:21 WBC 5.9 (4.8-10.8) X10*3/uL RBC 4.42 (4.20-5.50) X10*6/uL Hgb 12.0 (12.0-16.0) g/dl Hct 36.1 L (37.0-47.0) % MCV 81.7 (80.0-98.0) fL MCH 27.1 (27.0-33.0) pg MCHC 33.2 (31.0-35.0) g/dl RDW 13.4 (11.0-16.0) % Plt Count 276 (160-400) X10*3/uL MPV 9.4 (9.4-12.3) fL Immature Gran % (Auto) 0.5 H (0.0-0.4) % Neut % (Auto) 53.2 (45-73) % Lymph % (Auto) 40.0 (20-40) % [place] % (Auto) 6.1 (2-11) % Eos % (Auto) 0.2 (0-4) % Baso % (Auto) 0.0 (0-2) % Lymph # (Auto) 2.4 (1.2-4.9) X10*3/uL [place] # (Auto) 0.4 (0.1-1.2) X10*3/uL Eos # (Auto) 0.0 (0.0-0.4) X10*3/uL Baso # (Auto) 0.0 (0.0-0.2) X10*3/uL Abs Immat Gran (auto) 0.03 (0.00-0.03) X10*3/uL Absolute Neuts (auto) 3.1 (2.0-8.3) x10*3/uL Absolute Nucleated RBC 0.000 (0.0-0.012) X10*3/uL Nucleated RBC % (auto) 0.0 (0.0-0.2) /100WBC PT (10.0-13.1) SEC INR (0.9-1.1) Sodium (135-145) mmol/L Potassium (3.3-5.1) mmol/L Chloride (96-108) mmol/L Carbon Dioxide (22-29) mmol/L Anion Gap (12-20) BUN (9-16) mg/dL Creatinine (0.5-1.4) mg/dL Estim Creat Clear Calc Estimated GFR Random Glucose (60-115) mg/dL Calcium (8.4-10.2) mg/dL Total Bilirubin (0.0-1.0) mg/dL AST (5-31) U/L ALT (0-31) U/L Alkaline Phosphatase (39-117) U/L Troponin I High Sens (<3.5-17.0) ng/L Total Protein (6.5-8.0) g/dL Albumin (3.5-5.0) g/dL Lipase (8-78) U/L Urine Color Urine Appearance Urine pH (5.0-9.0) Ur Specific [place] (1.005-1.025) Urine Protein (Neg-Trace) mg/dL Urine Glucose (UA) (Negative) mg/dL Urine Ketones (Negative) mg/dL Urine Blood (Negative) Urine Nitrite (Negative) Ur Leukocyte Esterase (Negative) Urine RBC (0-2) /HPF Urine WBC (0-5) /HPF Ur Squamous Epith Cells (0-2) /HPF Urine Bacteria (None Seen) Hyaline Casts (0-2) /LPF Urine Test (NEGATIVE) COVID-19 (IRA) Negative (Negative) COVID-19 Clin Com See Note Influenza Type A (CAMACHO) Negative (Negative) Influenza Type B (CAMACHO) Negative (Negative) Influenza A & B Note See Note 09/21/22 09/21/22 09/21/22 Range/Units 11:21 11:21 11:21 WBC (4.8-10.8) X10*3/uL RBC (4.20-5.50) X10*6/uL Hgb (12.0-16.0) g/dl Hct (37.0-47.0) % MCV (80.0-98.0) fL MCH (27.0-33.0) pg MCHC (31.0-35.0) g/dl RDW (11.0-16.0) % Plt Count (160-400) X10*3/uL MPV (9.4-12.3) fL Immature Gran % (Auto) (0.0-0.4) % Neut % (Auto) (45-73) % Lymph % (Auto) (20-40) % [place] % (Auto) (2-11) % Eos % (Auto) (0-4) % Baso % (Auto) (0-2) % Lymph # (Auto) (1.2-4.9) X10*3/uL [place] # (Auto) (0.1-1.2) X10*3/uL Eos # (Auto) (0.0-0.4) X10*3/uL Baso # (Auto) (0.0-0.2) X10*3/uL Abs Immat Gran (auto) (0.00-0.03) X10*3/uL Absolute Neuts (auto) (2.0-8.3) x10*3/uL Absolute Nucleated RBC (0.0-0.012) X10*3/uL Nucleated RBC % (auto) (0.0-0.2) /100WBC PT 13.1 (10.0-13.1) SEC INR 1.1 (0.9-1.1) Sodium 141 (135-145) mmol/L Potassium 4.1 (3.3-5.1) mmol/L Chloride 107 (96-108) mmol/L Carbon Dioxide 28 (22-29) mmol/L Anion Gap 10 L (12-20) BUN 12 (9-16) mg/dL Creatinine 0.71 (0.5-1.4) mg/dL Estim Creat Clear Calc 134.0 Estimated GFR > 60 Random Glucose 88 (60-115) mg/dL Calcium 9.1 (8.4-10.2) mg/dL Total Bilirubin 0.4 (0.0-1.0) mg/dL AST 15 (5-31) U/L ALT 16 (0-31) U/L Alkaline Phosphatase 131 H (39-117) U/L Troponin I High Sens < 3.5 (<3.5-17.0) ng/L Total Protein 6.4 L (6.5-8.0) g/dL Albumin 3.7 (3.5-5.0) g/dL Lipase 9 (8-78) U/L Urine Color Urine Appearance Urine pH (5.0-9.0) Ur Specific [place] (1.005-1.025) Urine Protein (Neg-Trace) mg/dL Urine Glucose (UA) (Negative) mg/dL Urine Ketones (Negative) mg/dL Urine Blood (Negative) Urine Nitrite (Negative) Ur Leukocyte Esterase (Negative) Urine RBC (0-2) /HPF Urine WBC (0-5) /HPF Ur Squamous Epith Cells (0-2) /HPF Urine Bacteria (None Seen) Hyaline Casts (0-2) /LPF Urine Test (NEGATIVE) COVID-19 (IRA) (Negative) COVID-19 Clin Com Influenza Type A (CAMACHO) (Negative) Influenza Type B (CAMACHO) (Negative) Influenza A & B Note 09/21/22 09/21/22 Range/Units 12:01 12:01 WBC (4.8-10.8) X10*3/uL RBC (4.20-5.50) X10*6/uL Hgb (12.0-16.0) g/dl Hct (37.0-47.0) % MCV (80.0-98.0) fL MCH (27.0-33.0) pg MCHC (31.0-35.0) g/dl RDW (11.0-16.0) % Plt Count (160-400) X10*3/uL MPV (9.4-12.3) fL Immature Gran % (Auto) (0.0-0.4) % Neut % (Auto) (45-73) % Lymph % (Auto) (20-40) % [place] % (Auto) (2-11) % Eos % (Auto) (0-4) % Baso % (Auto) (0-2) % Lymph # (Auto) (1.2-4.9) X10*3/uL [place] # (Auto) (0.1-1.2) X10*3/uL Eos # (Auto) (0.0-0.4) X10*3/uL Baso # (Auto) (0.0-0.2) X10*3/uL Abs Immat Gran (auto) (0.00-0.03) X10*3/uL Absolute Neuts (auto) (2.0-8.3) x10*3/uL Absolute Nucleated RBC (0.0-0.012) X10*3/uL Nucleated RBC % (auto) (0.0-0.2) /100WBC PT (10.0-13.1) SEC INR (0.9-1.1) Sodium (135-145) mmol/L Potassium (3.3-5.1) mmol/L Chloride (96-108) mmol/L Carbon Dioxide (22-29) mmol/L Anion Gap (12-20) BUN (9-16) mg/dL Creatinine (0.5-1.4) mg/dL Estim Creat Clear Calc Estimated GFR Random Glucose (60-115) mg/dL Calcium (8.4-10.2) mg/dL Total Bilirubin (0.0-1.0) mg/dL AST (5-31) U/L ALT (0-31) U/L Alkaline Phosphatase (39-117) U/L Troponin I High Sens (<3.5-17.0) ng/L Total Protein (6.5-8.0) g/dL Albumin (3.5-5.0) g/dL Lipase (8-78) U/L Urine Color Yellow Urine Appearance Cloudy Urine pH 7.0 (5.0-9.0) Ur Specific [place] 1.015 (1.005-1.025) Urine Protein Negative (Neg-Trace) mg/dL Urine Glucose (UA) Negative (Negative) mg/dL Urine Ketones Negative (Negative) mg/dL Urine Blood Negative (Negative) Urine Nitrite Negative (Negative) Ur Leukocyte Esterase Trace H (Negative) Urine RBC 0-2 (0-2) /HPF Urine WBC 6-10 (0-5) /HPF Ur Squamous Epith Cells 11-20 (0-2) /HPF Urine Bacteria 3+ (None Seen) Hyaline Casts 3-5 (0-2) /LPF Urine Test NEGATIVE (NEGATIVE) COVID-19 (IRA) (Negative) COVID-19 Clin Com Influenza Type A (CAMACHO) (Negative) Influenza Type B (CAMACHO) (Negative) Influenza A & B Note Independent Interpretation I performed an independent interpretation of an: EKG and Plain X-Ray ( I have personally interpreted chest x-ray and agree with radiologist impression.) Interpretation: EKG Rate: 84 Rhythm:? normal sinus rhythm [place]:? normal Normal P waves.? Normal TREVOR.?? Normal QRS complex.?? ST T wave :?? no ST elevation, no ST depression qTC: 427 prior studies:? none available for review The study has been interpreted contemporaneously by me. Radiology Impression Discussion of test interpretation with radiology: I have reviewed the radiologist's reading. Radiologist Impression: XR/XR chest 2V IMPRESSION: Low lung volumes. Streaky opacities in the lower lungs bilaterally could represent infiltrates or atelectasis. Prescription Management I considered prescription management with: Other ( antiemetic) Discharge Plan Discharge Clinical Impression: Gastroenteritis Patient Disposition: Xfer Psychiatric Hosp Transfer Details: BACK TO [facility] ON SEC 21 WITH [facility] Instructions: Gastroenteritis (ED), Acute Nausea and Vomiting (ED) Additional Instructions: labs, urinalysis, viral testing, chest x-ray, EKG overall normal today. Vomiting may be secondary to viral illness. Zofran can be used as needed for symptoms. Tolerating oral intake at the time of discharge. You can take ibuprofen 200 mg, 3 tablets (600mg) every 6-8 hours as needed for pain, in addition to Tylenol 500 mg, 2 tablets (1,000mg) every 4-6 hours as needed for pain, but not to exceed 3 doses daily (3,000mg).? Prescriptions: New ondansetron 4 mg tablet,disintegrating 4 mg PO Q8H PRN (Reason: nausea and vomiting) Qty: 7 0RF No Action haloperidol 5 mg Tablet 10 mg PO BID Qty: 0 0RF sumatriptan succinate 100 mg Tablet 100 mg PO DAILY PRN (Reason: Migraine Headache) Qty: 0 0RF magnesium oxide 400 mg (241.3 mg magnesium) Tablet 400 mg PO BIDPC Qty: 0 0RF trazodone 100 mg Tablet 100 mg PO BEDTIME Qty: 0 0RF metformin 1,000 mg Tablet 1,000 mg PO DAILY Qty: 0 0RF benztropine 1 mg Tablet 1 mg PO BID Qty: 0 0RF hydroxyzine HCl 25 mg Tablet 25 mg PO Q6H PRN (Reason: Anxiety) Qty: 0 0RF gabapentin 100 mg Capsule 100 mg PO TID Qty: 0 0RF propranolol 20 mg Tablet 20 mg PO BID Qty: 0 0RF Protocol: Hold for SBP/HR < HOLD for SBP < : 90 HOLD for HR < : 60 ferrous sulfate 324 mg (65 mg iron) Tablet,Delayed Release (Dr/Ec) 324 mg PO DAILY Qty: 0 0RF Interventions: Acute Care Transfer Worksheet (ED) Last Done: 09/21/22 16:58 Discharge Date/Time: 09/21/22 17:00
[2022-09-21] MEDS: Ibuprofen 600 MG TABLET PO (13:46)
[2022-09-21 14:34] VITALS: BP 107/70; PULSE 85; RESP 16; O2SAT 96
--- NOTE | 2022-09-21 16:45 | MHC.EDTECH ---
[facility] HERE TO TAKE THIS PT BACK TO [facility] ON SECTION 21 @ THIS TIME
== END 2022-09-21 17:00 ==
PROVIDERS: Nurse Practitioner Family; Emergency Provider Emergency Medicine
DX: K52.9 Noninfective gastroenteritis and colitis, unspecified (principal); R11.2 Nausea with vomiting, unspecified; Z20.822 Contact with and (suspected) exposure to COVID-19; E11.9 Type 2 diabetes mellitus without complications; Z79.84 Long term (current) use of oral hypoglycemic drugs; Z79.899 Other long term (current) drug therapy
CPT/HCPCS: 71046; 80053; 81001; 81025; 83690; 84484; 85025; 85610; 87086; 87502; 87635; 93005; 96361; 96374; 99284; 99285; J2405

== ENCOUNTER 2022-09-25 19:55 | Emergency (ER) | payer MEDICAID, SELFPAY ==
--- NOTE | ~2022-09-25 | XR_ITS ---
EXAMINATION: CHEST AND ABDOMEN CLINICAL INFORMATION: Foreign body ingestion COMPARISON: Chest radiograph 09/21/2022, KUB 08/26/2022 TECHNIQUE: 2 views chest, single view abdomen FINDINGS: Multiple snaps, presumably on the patient's gown, are seen on the images. No other radiopaque foreign body is seen in the chest or abdomen. The 2 AAA batteries seen at the time of the 08/26/2022 KUB are no longer present. No infiltrates effusions or lung masses. No evidence of bowel obstruction. XR/XR chest 2V IMPRESSION: No evidence of a radiopaque foreign body at this time.
--- NOTE | ~2022-09-25 | XR_ITS ---
EXAMINATION: CHEST AND ABDOMEN CLINICAL INFORMATION: Foreign body ingestion COMPARISON: Chest radiograph 09/21/2022, KUB 08/26/2022 TECHNIQUE: 2 views chest, single view abdomen FINDINGS: Multiple snaps, presumably on the patient's gown, are seen on the images. No other radiopaque foreign body is seen in the chest or abdomen. The 2 AAA batteries seen at the time of the 08/26/2022 KUB are no longer present. No infiltrates effusions or lung masses. No evidence of bowel obstruction. XR/XR KUB IMPRESSION: No evidence of a radiopaque foreign body at this time.
[2022-09-25 20:05] VITALS: BP 113/67; PULSE 98; RESP 17; TEMP 36.9; O2SAT 96; BMI 39.8
[2022-09-25 20:11] LABS: Glucose, Whole Blood 119 mg/dL (60-115)
--- NOTE | 2022-09-25 20:25 | ED_ITS ---
HPI - Medical Clearance General Chief complaint: Medical Clearance Stated complaint: n/v X2days, r side pain Time Seen by Provider: 09/25/22 20:19 Source: patient Mode of arrival: EMS Limitations: no limitations History of Present Illness HPI Narrative: patient from [facility] psych with history of PICA complaining of abdominal pain and vomiting staff not sure whether she has taken anything by mouth or not with a history of ingestion of foreign bodies in past patient denying any ingestion Related Information Previous Rx's Medication Instructions Recorded benztropine 1 mg tablet 1 mg PO BID #0 tabs 05/27/22 ferrous sulfate 324 mg (65 mg 324 mg PO DAILY #0 tabs 05/27/22 iron) tablet,delayed release gabapentin 100 mg capsule 100 mg PO TID #0 caps 05/27/22 haloperidol 5 mg tablet 10 mg PO BID #0 tabs 05/27/22 hydroxyzine HCl 25 mg tablet 25 mg PO Q6H PRN Anxiety #0 tabs 05/27/22 magnesium oxide 400 mg (241.3 mg 400 mg PO BIDPC #0 tabs 05/27/22 magnesium) tablet metformin 1,000 mg tablet 1,000 mg PO DAILY #0 tabs 05/27/22 propranolol 20 mg tablet 20 mg PO BID #0 tabs 05/27/22 sumatriptan succinate 100 mg tablet 100 mg PO DAILY PRN Migraine 05/27/22 Headache #0 tabs trazodone 100 mg tablet 100 mg PO BEDTIME #0 tabs 05/27/22 ondansetron 4 mg disintegrating 4 mg PO Q8H PRN nausea and 09/21/22 tablet vomiting #7 tabs Allergies Allergy/AdvReac Type Severity Reaction Status Date / Time chlorpromazine Allergy Unknown Verified 05/25/22 22:52 [From Thorazine] divalproex sodium Allergy Unknown Verified 05/25/22 22:52 [From Depakote] latex Allergy Unknown Verified 05/25/22 22:52 risperidone [From Risperdal] Allergy Unknown Verified 05/25/22 22:52 shellfish derived Allergy Unknown Verified 05/25/22 22:52 tomato Allergy Unknown Verified 05/25/22 22:52 Review of Systems Review of Systems: Yes all other systems are reviewed and are negative PMFSH Social History Social History Household Members: Other Household Members Other:: residential Housing: Other Do you presently have visiting nurse or other home services: No Alcohol intake: never Patient Tobacco Use Status: Never used Tobacco Advance Directives: No Advance Directives Information Provided: No service: No Sexual orientation: Lesbian/[place]urgu[place]/Homosexual Physical Exam Vital Signs: Vital Signs: Last Vital Signs Temp 98.5 F 09/25/22 20:05 Pulse 98 09/25/22 20:05 Resp 17 09/25/22 20:05 BP 113/67 09/25/22 20:05 Pulse Ox 96 09/25/22 20:05 O2 Del Method 09/25/22 20:05 BMI result Body Mass Index 39.8 Appearance: Alert. Oriented X3. No acute distress. Eyes: PERRLA, No Nystagmus ENT: Pharynx normal. Oral Mucosa moist Neck: Normal inspection. Neck supple. CVS: Normal heart rate and rhythm. Pulses normal. Respiratory: No respiratory distress. Equal air entry bilateral, no wheezing/rales/rhonchi Abdomen: Soft , mild epigastric tenderness Bowel sounds are present, no mass palpable, no CVA tenderness Skin: Skin warm and dry. Normal skin color. Normal skin turgor. Extremities: No lower extremity edema. No calf tenderness Neuro: Oriented X 3. No motor deficit. No sensory deficit.No cerebellar signs , cranial nerves II-XII intact Medications Administered Discontinued Medications Generic Name Dose Route Start Last Admin Trade Name Freq PRN Reason Stop Dose Admin Ondansetron HCl 4 mg 09/25/22 21:22 09/25/22 21:32 Ondansetron Odt 4 Mg Tab.Rapdis TRANSLINGU 09/25/22 21:23 4 mg ONCE ONE Administration Medical Decision Making Medical Decision Making MDM Narrative: patient KUB and chest x-ray negative for foreign body labs are stable patient taking p.o. fluids in the ER discharge patient back to inpatient psych facility Lab Data [facility] Lab Attestation statement: I reviewed the patient's lab results. 09/25/22 21:00 09/25/22 21:00 Labs: Lab Results 09/25/22 09/25/22 09/25/22 Range/Units 20:07 20:54 20:54 WBC (4.8-10.8) X10*3/uL RBC (4.20-5.50) X10*6/uL Hgb (12.0-16.0) g/dl Hct (37.0-47.0) % MCV (80.0-98.0) fL MCH (27.0-33.0) pg MCHC (31.0-35.0) g/dl RDW (11.0-16.0) % Plt Count (160-400) X10*3/uL MPV (9.4-12.3) fL Immature Gran % (Auto) (0.0-0.4) % Neut % (Auto) (45-73) % Lymph % (Auto) (20-40) % Jennings % (Auto) (2-11) % Eos % (Auto) (0-4) % Baso % (Auto) (0-2) % Lymph # (Auto) (1.2-4.9) X10*3/uL Jennings # (Auto) (0.1-1.2) X10*3/uL Eos # (Auto) (0.0-0.4) X10*3/uL Baso # (Auto) (0.0-0.2) X10*3/uL Abs Immat Gran (auto) (0.00-0.03) X10*3/uL Absolute Neuts (auto) (2.0-8.3) x10*3/uL Absolute Nucleated RBC (0.0-0.012) X10*3/uL Nucleated RBC % (auto) (0.0-0.2) /100WBC Sodium (135-145) mmol/L Potassium (3.3-5.1) mmol/L Chloride (96-108) mmol/L Carbon Dioxide (22-29) mmol/L Anion Gap (12-20) BUN (9-16) mg/dL Creatinine (0.5-1.4) mg/dL Estim Creat Clear Calc Estimated GFR POC Glucose 119 H (60-115) mg/dL Random Glucose (60-115) mg/dL Calcium (8.4-10.2) mg/dL Total Bilirubin (0.0-1.0) mg/dL AST (5-31) U/L ALT (0-31) U/L Alkaline Phosphatase (39-117) U/L Total Protein (6.5-8.0) g/dL Albumin (3.5-5.0) g/dL Lipase (8-78) U/L Urine Test (NEGATIVE) Urine Opiates Screen Not Detected (Not Detect) Urine Fentanyl Screen POSITIVE H (Not Detect) Ur Barbiturates Screen Not Detected (Not Detect) Ur Phencyclidine Scrn Not Detected (Not Detect) Ur Amphetamines Screen Not Detected (Not Detect) U Benzodiazepines Scrn Not Detected (Not Detect) Urine Cocaine Screen Not Detected (Not Detect) U Marijuana (THC) Screen Not Detected (Not Detect) COVID-19 (IRA) Negative (Negative) COVID-19 Clin Com See Note 09/25/22 09/25/22 09/25/22 Range/Units 20:54 21:00 21:00 WBC 6.0 (4.8-10.8) X10*3/uL RBC 4.33 (4.20-5.50) X10*6/uL Hgb 11.7 L (12.0-16.0) g/dl Hct 35.0 L (37.0-47.0) % MCV 80.8 (80.0-98.0) fL MCH 27.0 (27.0-33.0) pg MCHC 33.4 (31.0-35.0) g/dl RDW 13.2 (11.0-16.0) % Plt Count 278 (160-400) X10*3/uL MPV 9.4 (9.4-12.3) fL Immature Gran % (Auto) 0.3 (0.0-0.4) % Neut % (Auto) 56.1 (45-73) % Lymph % (Auto) 38.1 (20-40) % Jennings % (Auto) 5.5 (2-11) % Eos % (Auto) 0.0 (0-4) % Baso % (Auto) 0.0 (0-2) % Lymph # (Auto) 2.3 (1.2-4.9) X10*3/uL Jennings # (Auto) 0.3 (0.1-1.2) X10*3/uL Eos # (Auto) 0.0 (0.0-0.4) X10*3/uL Baso # (Auto) 0.0 (0.0-0.2) X10*3/uL Abs Immat Gran (auto) 0.02 (0.00-0.03) X10*3/uL Absolute Neuts (auto) 3.4 (2.0-8.3) x10*3/uL Absolute Nucleated RBC 0.000 (0.0-0.012) X10*3/uL Nucleated RBC % (auto) 0.0 (0.0-0.2) /100WBC Sodium 141 (135-145) mmol/L Potassium 4.0 (3.3-5.1) mmol/L Chloride 106 (96-108) mmol/L Carbon Dioxide 27 (22-29) mmol/L Anion Gap 12 (12-20) BUN 6 L (9-16) mg/dL Creatinine 0.61 (0.5-1.4) mg/dL Estim Creat Clear Calc 158.0 Estimated GFR > 60 POC Glucose (60-115) mg/dL Random Glucose 112 (60-115) mg/dL Calcium 9.2 (8.4-10.2) mg/dL Total Bilirubin 0.2 (0.0-1.0) mg/dL AST 11 (5-31) U/L ALT 10 (0-31) U/L Alkaline Phosphatase 131 H (39-117) U/L Total Protein 6.4 L (6.5-8.0) g/dL Albumin 3.7 (3.5-5.0) g/dL Lipase 9 (8-78) U/L Urine Test NEGATIVE (NEGATIVE) Urine Opiates Screen (Not Detect) Urine Fentanyl Screen (Not Detect) Ur Barbiturates Screen (Not Detect) Ur Phencyclidine Scrn (Not Detect) Ur Amphetamines Screen (Not Detect) U Benzodiazepines Scrn (Not Detect) Urine Cocaine Screen (Not Detect) U Marijuana (THC) Screen (Not Detect) COVID-19 (IRA) (Negative) COVID-19 Clin Com Discharge Plan Discharge Clinical Impression: Nausea & vomiting, Anxiety Patient Disposition: Xfer Psychiatric Hosp Transfer Details: KUB and chest x-ray negative for foreign body labs are stable patient able take p.o. fluids Instructions: Acute Nausea and Vomiting (ED), Anxiety (ED) Additional Instructions: take medication as prescribed by your psychiatrist Prescriptions: No Action haloperidol 5 mg Tablet 10 mg PO BID Qty: 0 0RF sumatriptan succinate 100 mg Tablet 100 mg PO DAILY PRN (Reason: Migraine Headache) Qty: 0 0RF magnesium oxide 400 mg (241.3 mg magnesium) Tablet 400 mg PO BIDPC Qty: 0 0RF trazodone 100 mg Tablet 100 mg PO BEDTIME Qty: 0 0RF metformin 1,000 mg Tablet 1,000 mg PO DAILY Qty: 0 0RF benztropine 1 mg Tablet 1 mg PO BID Qty: 0 0RF hydroxyzine HCl 25 mg Tablet 25 mg PO Q6H PRN (Reason: Anxiety) Qty: 0 0RF gabapentin 100 mg Capsule 100 mg PO TID Qty: 0 0RF propranolol 20 mg Tablet 20 mg PO BID Qty: 0 0RF Protocol: Hold for SBP/HR < HOLD for SBP < : 90 HOLD for HR < : 60 ferrous sulfate 324 mg (65 mg iron) Tablet,Delayed Release (Dr/Ec) 324 mg PO DAILY Qty: 0 0RF ondansetron 4 mg tablet,disintegrating 4 mg PO Q8H PRN (Reason: nausea and vomiting) Qty: 7 0RF
--- NOTE | 2022-09-25 21:00 | MHC.CARE ---
CARE Team called Ken regarding Pt who presented to the ED for clarification. PT was sent to [facility] ED for medical clearance due to potentially swallowing item. Per report bed is being held pending medical clearance. Per Ken nurse charge rn RN was notified TRIAL COURT JUDGE.
[2022-09-25 21:06] LABS: UPreg QC Valid YES; Urine Pregnancy NEGATIVE (NEGATIVE)
[2022-09-25 21:12] LABS: MANUAL DIFF FLAG NO
[2022-09-25 21:15] LABS: Hemoglobin 11.7 g/dl (12.0-16.0); Imm Gran Abs Auto 0.02 X10*3/uL (0.00-0.03); Imm Gran Pct Auto 0.3 % (0.0-0.4); Lymphocytes Absolute Auto 2.3 X10*3/uL (1.2-4.9); Lymphocytes Percent Auto 38.1 % (20-40); Mean Corpuscular HGB Conc 33.4 g/dl (31.0-35.0); Mean Corpuscular Volume 80.8 fL (80.0-98.0); Mean Platelet Volume 9.4 fL (9.4-12.3); Monocytes Absolute Auto 0.3 X10*3/uL (0.1-1.2); Monocytes Percent Auto 5.5 % (2-11); Neutrophils Absolute Auto 3.4 x10*3/uL (2.0-8.3); Neutrophils Percent Auto 56.1 % (45-73); Platelet Count 278 X10*3/uL (160-400); Red Blood Count 4.33 X10*6/uL (4.20-5.50); Red Cell Distribution Width 13.2 % (11.0-16.0)
[2022-09-25 21:19] LABS: COVID-19 Test Negative (Negative); IDNOW Serial# 55D5AD1C
[2022-09-25 21:29] LABS: Amphetamine Screen Urine Not Detected (Not Detect); Barbiturates, Urine Not Detected (Not Detect); Benzodiazepines Screen Urine Not Detected (Not Detect); Cannabinoid Screen Urine Not Detected (Not Detect); Cocaine Screen Urine Not Detected (Not Detect); Fentanyl, urine POSITIVE (Not Detect); Opiate Screen Urine Not Detected (Not Detect); Phencyclidine Screen Urine Not Detected (Not Detect)
[2022-09-25] MEDS: Ondansetron ODT 4 MG TAB.RAPDIS TRANSLINGU (21:32)
[2022-09-25 21:35] LABS: Alanine Aminotransferase 10 U/L (0-31); Albumin Level 3.7 g/dL (3.5-5.0); Alkaline Phosphatase 131 U/L (39-117); Anion Gap 12 (12-20); Aspartate Amino Transferase 11 U/L (5-31); Bilirubin Total 0.2 mg/dL (0.0-1.0); Blood Urea Nitrogen 6 mg/dL (9-16); Calcium 9.2 mg/dL (8.4-10.2); Carbon Dioxide 27 mmol/L (22-29); Chloride 106 mmol/L (96-108); Estimated Glomerular Filt Rate > 60; Glucose Random 112 mg/dL (60-115); Lipase 9 U/L (8-78); Sodium 141 mmol/L (135-145); Total Protein 6.4 g/dL (6.5-8.0)
--- NOTE | 2022-09-25 22:01 | PC.NURSE ---
Patient cleared medically by the provider. [facility] called at [phone], spoke with director building, updated medical status, agreed to have patient transfer back to [facility], provider made aware, transfer paper submitted to ED assistant corporate secretary, awaiting ambulance for transfer, will continue to monitor.
--- NOTE | 2022-09-25 22:11 | MHC.EDTECH ---
Luc called at 1 for a bls transfer back to [facility] Mark spoke with Porsha she stated an eta of about an hour.Rn aware
[2022-09-26 00:39] LABS: Appearance Urine Cloudy; Color Urine Yellow; Glucose Urine UA Negative (Negative); Leukocyte Esterase Urine Negative (Negative); Nitrite Urine Negative (Negative); PH 8.5 (5.0-9.0); Urine Blood Negative (Negative); Urine Ketones Negative (Negative); Urine Protein Negative (Neg-Trace)
== END 2022-09-25 23:29 ==
PROVIDERS: Emergency Provider Internal Medicine
DX: R11.2 Nausea with vomiting, unspecified (principal); F41.9 Anxiety disorder, unspecified; Z20.822 Contact with and (suspected) exposure to COVID-19; F60.3 Borderline personality disorder; E11.9 Type 2 diabetes mellitus without complications; F50.89 Other specified eating disorder; Z79.899 Other long term (current) drug therapy
CPT/HCPCS: 36415; 71046; 74018; 80053; 80307; 81003; 81025; 82947; 83690; 85025; 87635; 99285